=== PATIENT | female | born 1930 | race Caucasian/White ===

== ENCOUNTER 2017-02-18 12:21 | Emergency (ER) | payer MEDICARE, MEDICAID ==
[~2017-02-18] VITALS: Ht 154.9 cm; Wt 59.0 kg
[~2017-02-18 12:21] MED LIST: AC325T; ACET325T38 PO; ALPR.25T PO; ALPR.5T PO; ASP325T PO; ASPI-875 PO; BSC10SU; BSC10SU PR; CALC600T PO; CALC600T10; CALCIUM CARBONATE; CEFU500T5 PO; CHOL40002 PO; CHOL50003 PO; CTLP20T PO; CYAN100071 PO; CYAN25006 SL; CYAN500T44 PO; CYPR4TAB PO; DIGO125T91 PO; DOXE10CA PO; ERGO2000 PO; EST45C EXT; EST45C VG; FLT05NA16 NSEACH; FNT100TD TD; FNT25TD TD; FORTEO; GBPN100C PO; HYDROCODONE BIT/ACET; IBUP-15 PO; LOPE2CAP PO; LRT10T PO; LVT.05T PO; MAGN-77 PO; METO5TAB2 PO; METOPROLOL; MOM; MTP25TSR PO; MULT1TAB63 PO; MULTIVIT W/MINERALS PO; NF-ESOM40C PO; ONDA4TAB2 PO; OXC20TCR PO; OXYC10TA7 PO; OXYC30TA80 PO; OXYCODONE IMMEDIATE; PAXIL; PHEN100T26; PNT40TEC PO; POLY17PO23 PO; PRX20T; REGLAN; Rivaroxaban PO; TR1C15 TOP; TRIA60LO6 TOP; VESICARE; WARF2.5T56 PO; WRF5T PO; XANAX
[2017-02-18 13:33] LABS: BASOPHILS % (AUTO) 1 % (0-10); EOSINOPHILS % (AUTO) 0 % (0-10); LYMPHOCYTES # (AUTO) 0.7 X 10^3 (1.0-4.0); LYMPHOCYTES % (AUTO) 15 % (12-44); MEAN CORPUSCULAR HEMOGLOBIN 30 PG (25-34); MEAN CORPUSCULAR HGB CONC 33 G/DL (32-36); MEAN CORPUSCULAR VOLUME 92 FL (80-99); MEAN PLATELET VOLUME 10.1 FL (7.4-10.4); MONOCYTES # (AUTO) 0.3 X 10^3 (0.0-1.0); MONOCYTES % (AUTO) 6 % (0-12); NEUTROPHILS # (AUTO) 3.8 X 10^3 (1.8-7.8); NEUTROPHILS % (AUTO) 78 % (42-75); PLATELET COUNT 252 10^3/uL (130-400); RED BLOOD COUNT 4.36 10^6/uL (4.35-5.85); RED CELL DISTRIBUTION WIDTH 13.9 % (10.0-14.5); WHITE BLOOD COUNT 4.8 10^3/uL (4.3-11.0)
[2017-02-18 13:52] LABS: ALANINE AMINOTRANSFERASE 12 U/L (0-55); ANION GAP 12 MMOL/L (5-14); ASPARTATE AMINO TRANSFERASE 19 U/L (5-34); BILIRUBIN,TOTAL 0.8 MG/DL (0.1-1.0); BLOOD UREA NITROGEN 15 MG/DL (7-18); BUN/CREATININE RATIO 20; CALCIUM 9.8 MG/DL (8.5-10.1); CARBON DIOXIDE 26 MMOL/L (21-32); CHLORIDE 96 MMOL/L (98-107); CREATININE SERUM 0.76 MG/DL (0.60-1.30); GFR ESTIMATED > 60; GLUCOSE 101 MG/DL (70-105); POTASSIUM 4.2 MMOL/L (3.6-5.0); SODIUM 134 MMOL/L (135-145); TOTAL PROTEIN 8.3 GM/DL (6.4-8.2)
[2017-02-18] MEDS ORDERED: NS IV 1000 ML 1,000 ML IV SCH (14:00)
--- NOTE | 2017-02-18 14:04 | ED General ---
General Chief Complaint: General Problems/Pain Stated Complaint: BODY ACHES Nursing Triage Note: c/o bodyaches and malaise Nursing Sepsis Screen: No Definite Risk Source of Information: Patient Exam Limitations: No Limitations History of Present Illness Time Seen by Provider: 13:59 Initial Comments The patient is an 86-year-old white female who presents with her family with a complaint of body aches and general malaise. She reports that this is been present for 2-3 weeks. She saw a nurse practitioner at her provider's office approximately one week ago. Nothing specific was determined as to the cause of these symptoms. She is not aware of fever. Family reports that her appetite and fluid intake have been marginal at best. Timing/Duration: Other (2-3 weeks) Allergies and Home Medications Allergies Coded Allergies: penicillin G (Verified Allergy, Severe, THROAT SWELLED, COULDN'T BREATHE, 03/18/07) Sulfa (Sulfonamide Antibiotics) (Verified Allergy, Unknown, 04/16/07) hydrocodone bit (Verified Allergy, Unknown, 07/14/14) morphine (Verified Allergy, Unknown, 09/17/06) Home Medications Acetaminophen 325 Mg Tablet, 650 MG PO Q4H PRN for PAIN OR TEMP, (Reported) TAKE 2 (325MG) TABLETS NEEDED FOR PAIN OR TEMP Alprazolam 0.5 Mg Tablet, 0.5 MG PO Q6H PRN for ANXIETY, (Reported) NEEDED FOR ANXIETY Aspirin 81 Mg Tablet.dr, 81 MG PO DAILY, (Reported) Bisacodyl 10 Mg Supp, 10 MG IA DAILY PRN for CONSTIPATION, (Reported) NEEDED FOR CONSTIPATION Citalopram Hydrobromide 20 Mg Tablet, 20 MG PO DAILY, (Reported) Cyanocobalamin (Vitamin B-12) 1,000 Mcg Tablet.er, 2,000 MCG PO DAILY, (Reported ) GIVE WITH 500MCG TO EQUAL 2500MCG Cyanocobalamin (Vitamin B-12) 500 Mcg Tablet, 500 MCG PO DAILY, (Reported) GIVE WITH 2 (1000MCG) TO EQUAL 2500MCG Digoxin 0.125 Mg Tab, 0.125 MG PO DAILY, (Reported) Doxepin Hcl 10 Mg Capsule, 10 MG PO DAILY, (Reported) Ergocalciferol (Vitamin D2) 2,000 Unit Tablet, 2,000 UNIT PO DAILY, (Reported) Esomeprazole Mag Trihydrate 40 Mg Capsule.dr, 40 MG PO DAILY, (Reported) Estrogens Conjugated 45 Gm Cr, 1 GM VG HS ON SUNDAY, (Reported) 1 APPLICATORFUL Estrogens Conjugated 45 Gm Cr, 1 GM EXT HS WEEKLY PRN for VAGINITIS, (Reported) 1 APPLICATORFUL TO EXTERAL LABIA NEEDED FOR VAGINITIS Fentanyl 1 Ea Patch, 50 MCG TD Q72H, (Reported) ROTATE PATCH EVERY 14 DAYS Levothyroxine Sodium 50 Mcg Tablet, 50 MCG PO DAILY, (Reported) Loperamide Hcl 2 Mg Capsule, 2 MG PO Q2H PRN for LOOSE STOOL, (Reported) 1 CAP AFTER EACH LOOSE STOOL. NOT TO EXCEED 4 CAPS/24 HRS. Magnesium Hydroxide 80 Mg/Ml Oral.susp, 30 ML PO DAILY PRN for CONSTIPATION, ( Reported) NEEDED FOR CONSTIPATION MAY GIVE IF NO BOWEL MOVEMENT X 3 DAYS Ondansetron Hcl 4 Mg Tablet, 4 MG PO Q6H PRN for NAUSEA, (Reported) NEEDED FOR NAUSEA Oxycodone Hcl 10 Mg Tablet, 10 MG PO Q4H PRN for PAIN SCALE OF 1-4, (Reported) NEEDED FOR PAIN SCALE 1-4 Oxycodone Hcl 10 Mg Tablet, 20 MG PO Q4H PRN for PAIN SCALE 5-10, (Reported) TAKE 2 (10MG) TABLET NEEDED FOR PAIN SCALE 5-10 Polyethylene Glycol 17 Gm Pack, 17 GM PO DAILY PRN for CONSTIPATION, (Reported) NEEDED FOR CONSTIPATION Triamcinolone Acet 15 Gm Cr, 0 TOP DAILY PRN for SEBORRHEIC DERMATITIS, ( Reported) APPLY SPRARINGLY TO AFFECTED AREA(S) NEEDED FOR SEBORRHEIC DERMATITIS [Multivit W/Minerals] , 1 TAB PO DAILY, (Reported) [Rivaroxaban] 20 MG TABLET, 20 MG PO DAILY@1700, #30 Prescribed by: BINDU BAJWA on 07/20/14 0801 Constitutional: see HPI EENTM: no symptoms reported Respiratory: no symptoms reported Cardiovascular: no symptoms reported Gastrointestinal: loss of appetite Genitourinary: no symptoms reported Musculoskeletal: muscle pain, muscle weakness Skin: no symptoms reported Psychiatric/Neurological: No Symptoms Reported Hematologic/Lymphatic: No Symptoms Reported Immunological/Allergic: no symptoms reported Past Aojapja-Jdbudl-Nacabp Hx Patient Social History Alcohol Use: Denies Use Recreational Drug Use: No Smoking Status: Never a Smoker Recent Foreign Travel: No Contact w/Someone Who Travel: No Recent Infectious Disease Expo: No Recent Hopitalizations: Yes (UMBILICAL HERMIA, TONSILS, BACK SURGERY, RECICILE , TIE UP BLADDER) Immunizations Up To Date Tetanus Booster (TDap): Unknown PED Vaccines UTD: No Date of Pneumonia Vaccine: May 22, 2011 Date of Influenza Vaccine: May 20, 2014 Seasonal Allergies Seasonal Allergies: No Surgeries HX Surgeries: Yes (REPAIR LEFT HIP WITH FARTUN, RIGHT 4TH TOE REMOVED) Surgeries: Orthopedic, Tonsillectomy Respiratory Hx Respiratory Disorders: Yes Respiratory Disorders: Pneumonia Cardiovascular Hx Cardiac Disorders: Yes (A-FIB) Cardiac Disorders: Atrial Fibrillation, Deep Vein Thrombosis Neurological Hx Neurological Disorders: Yes Reproductive System Hx Reproductive Disorders: No Sexually Transmitted Disease: No DATA ANALYTICS ANALYST History: Hysterectomy Genitourinary Hx Genitourinary Disorders: Yes Genitourinary Disorders: UTI-Chronic Gastrointestinal Hx Gastrointestinal Disorders: No Gastrointestinal Disorders: Gastroesophageal Reflux, Chronic Constipation Musculoskeletal Hx Musculoskeletal Disorders: Yes Musculoskeletal Disorders: Osteoporosis, Arthritis, Fractures Endocrine Hx Endocrine Disorders: No HEENT HX ENT Disorders: Yes HEENT Disorders: Cataract Loss of Vision: Denies Hearing Impairment: Hard of Hearing Cancer Hx Cancer: No Psychosocial Hx Psychiatric Problems: No Behavioral Health Disorders: Depression Integumentary HX Skin/Integumentary Disorder: No Blood Transfusions Hx Blood Disorders: Yes (hx of "blood clots") Adverse Reaction to a Blood Tr: No (Has had several blood transfusions) Family Medical History Significant Family History: No Pertinent Family Hx Family Medial History: FH: cancer 19 FATHER Peritonitis 19 MOTHER Physical Exam Vital Signs Vital Sign - Last 12Hours 02/18/17 13:03 Temp 97.5 Pulse 90 Resp 16 B/P (MAP) 105/80 Pulse Ox 96 O2 Delivery Room Air Capillary Refill : Less Than 3 Seconds General Appearance: Other Eyes: Bilateral Eye Normal Inspection HEENT: Other (tongue is dry and leathery in appearance) Neck: Normal Inspection Respiratory: Chest Non Tender, Lungs Clear, Normal Breath Sounds, No Accessory Muscle Use, No Respiratory Distress Cardiovascular: Regular Rate, Rhythm, No Edema, No Gallop, No JVD, No Murmur, Normal Peripheral Pulses Gastrointestinal: Normal Bowel Sounds, No Organomegaly, No Pulsatile Mass, Non Tender, Soft Back: Normal Inspection, No CVA Tenderness, No Vertebral Tenderness Extremity: Normal Capillary Refill, Normal Inspection, Normal Range of Motion, Non Tender, No Calf Tenderness, No Pedal Edema Neurologic/Psychiatric: Alert, Oriented x3, No Motor/Sensory Deficits, Normal Mood/Affect Skin: Normal Color, Warm/Dry Lymphatic: No Adenopathy Progress/Results/Core Measures Results/Orders Lab Results Laboratory Tests Test 02/18/17 13:25 02/18/17 15:25 Range/Units White Blood Count 4.8 4.3-11.0 10^3/uL Red Blood Count 4.36 4.35-5.85 10^6/uL Hemoglobin 13.1 11.5-16.0 G/DL Hematocrit 40 35-52 % Mean Corpuscular Volume 92 80-99 FL Mean Corpuscular Hemoglobin 30 25-34 PG Mean Corpuscular Hemoglobin Concent 33 32-36 G/DL Red Cell Distribution Width 13.9 10.0-14.5 % Platelet Count 252 130-400 10^3/uL Mean Platelet Volume 10.1 7.4-10.4 FL Neutrophils (%) (Auto) 78 H 42-75 % Lymphocytes (%) (Auto) 15 12-44 % Monocytes (%) (Auto) 6 0-12 % Eosinophils (%) (Auto) 0 0-10 % Basophils (%) (Auto) 1 0-10 % Neutrophils # (Auto) 3.8 1.8-7.8 X 10^3 Lymphocytes # (Auto) 0.7 L 1.0-4.0 X 10^3 Monocytes # (Auto) 0.3 0.0-1.0 X 10^3 Eosinophils # (Auto) 0.0 0.0-0.3 10^3/uL Basophils # (Auto) 0.0 0.0-0.1 10^3/uL Sodium Level 134 L 135-145 MMOL/L Potassium Level 4.2 3.6-5.0 MMOL/L Chloride Level 96 L 98-107 MMOL/L Carbon Dioxide Level 26 21-32 MMOL/L Anion Gap 12 5-14 MMOL/L Blood Urea Nitrogen 15 7-18 MG/DL Creatinine 0.76 0.60-1.30 MG/DL Estimat Glomerular Filtration Rate > 60 BUN/Creatinine Ratio 20 Glucose Level 101 70-105 MG/DL Calcium Level 9.8 8.5-10.1 MG/DL Total Bilirubin 0.8 0.1-1.0 MG/DL Aspartate Amino Transf (AST/SGOT) 19 5-34 U/L Alanine Aminotransferase (ALT/SGPT) 12 0-55 U/L Alkaline Phosphatase 48 40-136 U/L Total Protein 8.3 H 6.4-8.2 GM/DL Albumin 4.0 3.2-4.5 GM/DL Urine Color YELLOW Urine Clarity CLEAR Urine pH 8 5-9 Urine Specific [place] 1.010 L 1.016-1.022 Urine Protein NEGATIVE NEGATIVE Urine Glucose (UA) NEGATIVE NEGATIVE Urine Ketones 3+ H NEGATIVE Urine Nitrite NEGATIVE NEGATIVE Urine Bilirubin NEGATIVE NEGATIVE Urine Urobilinogen NORMAL NORMAL MG/DL Urine Leukocyte Esterase NEGATIVE NEGATIVE Urine RBC (Auto) 2+ H NEGATIVE Urine RBC 5-10 H /HPF Urine WBC RARE /HPF Urine Squamous Epithelial Cells RARE /HPF Urine Crystals NONE /LPF Urine Bacteria FEW H /HPF Urine Casts NONE /LPF Urine Mucus NEGATIVE /LPF Urine Culture Indicated NO My Orders Orders - OSCAR SAUL MD Ua Culture If Indicated (02/18/17 12:58) Cbc With Automated Diff (02/18/17 13:03) Comprehensive Metabolic Panel (02/18/17 13:03) Ns Iv 1000 Ml (Sodium Chloride 0.9%) (02/18/17 14:00) Chest 1 View, Ap/Pa Only (02/18/17 16:10) Alprazolam Tablet (Xanax Tablet) (02/18/17 16:30) Medications Given in ED Current Medications Medications Dose Ordered Sig/Josef Route Start Time Stop Time Status Last Admin Dose Admin Alprazolam 0.25 mg ONCE ONCE PO 02/18/17 16:30 02/18/17 16:31 DC 02/18/17 16:29 0.25 MG Vital Signs/I&O Vital Sign - Last 12Hours 02/18/17 13:03 Temp 97.5 Pulse 90 Resp 16 B/P (MAP) 105/80 Pulse Ox 96 O2 Delivery Room Air Blood Pressure Mean: 88 Departure Communication Progress Notes After a liter of fluid the patient was still unable to urinate. A straight catheter was performed. The UA showed a few red cells but was otherwise negative she then began to complain of feeling short of breath. Chest x-ray showed chronic Pulmonary fibrosis. SaO2 was 95 percent. She again states that she continues to feel just awful. Impression Impression: Primary Impression: General medical exam Disposition: HOME, SELF-CARE Condition: Stable/Unchanged Departure-Patient Inst. Decision time for Depature: 16:46 Referrals: LORI LIN MD (PCP/Family) Primary Care Physician Add. Discharge Instructions: All discharge instructions reviewed with patient and/or family. Voiced understanding. Discussed with your provider the possibility of an appetite stimulant. OSCAR SAUL MD Feb 18, 2017 14:04
[2017-02-18 15:57] LABS: BILIRUBIN,URINE NEGATIVE (NEGATIVE); KETONES,URINE 3+ (NEGATIVE); LEUKOCYTE ESTERASE ,URINE NEGATIVE (NEGATIVE); NITRITE,URINE NEGATIVE (NEGATIVE); PH,URINE 8 (5-9); PROTEIN,URINE NEGATIVE (NEGATIVE); UROBILINOGEN,URINE NORMAL (NORMAL)
[2017-02-18 16:04] LABS: SQUAMOUS EPITHELIAL CELL,UR RARE /HPF; WBC,URINE RARE /HPF
--- NOTE | 2017-02-18 16:26 | Diagnostic Imaging Report ---
INDICATION: Fall. Right-sided pain. COMPARISON: 01/26/2016. FINDINGS: Portable chest shows the lungs to be well aerated. Chronic interstitial lung disease is present. Heart is mildly enlarged. No consolidated infiltrate. No pneumothorax or pleural effusions. No displaced rib fractures are demonstrated. Marked degenerative changes noted of the left shoulder. IMPRESSION: 1. Chronic interstitial lung disease with cardiomegaly. No acute changes demonstrated. Dictated by: Dictated on workstation # [id number]
[2017-02-18] MEDS ORDERED: ALPRAZolam 0.25 MG (XANAX) TAB PO ONE (16:30)
[2017-02-18 17:05] VITALS: BP 141/80
--- OUTSIDE RECORDS SUMMARY | 2017-02-21 13:21 | XMS REPORT | Continuity of Care Document ---
Author Author [facility] Organization [facility] Address Unknown Phone Unavailable Care Team Providers Care Military Pay Technician Name Role Phone Unverified, Unverified PCP Unavailable Source Comments Some departments are not documenting in the electronic medical record. If you do not see the information that you expected, contact Release of Information in the Health Information Management department at [phone] for further assistance in locating additional records.[facility] Active Allergies and Adverse Reactions Allergen Noted Date Severity Reactions Comments Morphine 06/11/2008 NAUSEA AND VOMITING Penicillins 01/02/2005 High Allergy recorded in SMS: PENNICILLIN~Reactions: ANAPHYLAXIS Sulfa (Sulfonamide 06/11/2008 Antibiotics) Current Medications Prescription Sig. Disp. Refills Start End Date Status Date senna/docusate Take 1 Tab by mouth Twice 60 1 06/11/20 Active (SENOKOT-S) 8.6/50 mg Daily. While taking pain 08 tablet medications oxycodone (ROXICODONE) 5 Take 1-2 Tabs by mouth 60 0 06/11/20 Active mg tablet Every 3 Hours as needed 08 for Pain. 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 Social History Tobacco Use Types Packs/Day Years Used Date Never Smoker Alcohol Use Drinks/Week oz/Week Comments No Last Filed Vital Signs Vital Sign Reading Time Taken Blood Pressure 129/73 06/11/2008 12:00 PM CDT Pulse 83 06/11/2008 12:00 PM CDT Temperature 37.3 C (99.1 F) 06/11/2008 12:00 PM CDT Respiratory Rate - - Height - - Weight - - Body Mass Index - - Oxygen Saturation 96% 06/11/2008 12:00 PM CDT Plan of Care Health Maintenance Due Date Last Done Comments Physical (Comprehensive) 1936 Exam Pertussis Vaccine 1940 Tetanus Vaccine 1946 Shingles Vaccine 1989 Osteoporosis Screening 1994 Prevnar/Pneumovax (#1) 1994 Influenza Vaccine 04/20/2017 Results from Last 3 Months Not on file
== END 2017-02-18 17:05 | disposition home or self-care (01) ==
LOC: EDUNIT# 12:21 → ER 12:24
DX: R52 Pain, unspecified (principal); R53.81 Other malaise; F32.9 Major depressive disorder, single episode, unspecified; M81.0 Age-related osteoporosis without current pathological fracture; K21.9 Gastro-esophageal reflux disease without esophagitis; K59.09 Other constipation; I48.91 Unspecified atrial fibrillation; I82.90 Acute embolism and thrombosis of unspecified vein; Z79.82 Long term (current) use of aspirin; Z89.421 Acquired absence of other right toe(s); Z90.89 Acquired absence of other organs; Z90.710 Acquired absence of both cervix and uterus; Z79.01 Long term (current) use of anticoagulants
CPT/HCPCS: 36415; 71010; 80053; 81000; 85025

== ENCOUNTER → 2017-04-27 | Outpatient (CLI) | payer MEDICARE, MEDICAID ==
[~2017-04-27] MED LIST changes: +ACET325T49 PO; +ALPR0.254 PO; +ASPI-983 PO; +BISA10SU6 RC; +CALC500T34 PO; +CHOL10003 PO; +CITA20TA7 PO; +CLIN150C17 PO; +CYAN10006 PO; +CYAN500T2 PO; +DIGO125T PO; +DOCU100C37 PO; +DOXE10CA29 PO; +ESOM20CA37 PO; +ESTR42.52 VG; +FENT1PAT11 TD; +FENT1PAT57 TD; +FENT1PAT8 TD; +LACT-35 PO; +LACT1CAP39 PO; +LEVO50TA6 PO; +LOPE-134 PO; +LOPE2TAB32 PO; +LORA10TA7 PO; +MAG30ORA2 PO; +MAGN400O7 PO; +MULT1TAB69 PO; +NALO25TA PO; +ONDA4TAB10 PO; +OXYC-529 PO; +OXYC15TA79 PO; +Oxycodone Hcl PO; +POLY255P PO; +RIVA15TA PO; +RIVA20TA PO; +[UNRECOGNIZED DRUG - CODE] PO
--- NOTE | 2017-04-27 15:29 | Diagnostic Imaging Report ---
INDICATION: Fall. COMPARISON: 05/26/2016. FINDINGS: Bilateral gamma nail and compression screws are in good position within the hips bilaterally. No evidence of acute fractures. There is an old fracture noted of the right pubic ramus. SI joints are symmetrical with degenerative changes more severe on the right. IMPRESSION: No acute fractures. Old fracture of the right pubic ramus. Report was called and faxed to Xi at office of BART Molina, @ 3:26 PM/norma. Dictated by: Dictated on workstation # [id number]
--- NOTE | 2017-04-27 15:35 | Diagnostic Imaging Report ---
INDICATION: Neck and back pain. COMPARISON: None available. TECHNIQUE: Four views of cervical spine. FINDINGS: Evaluation of the cervical spine is limited due to patient's suboptimal ability to position secondary to severe thoracic kyphosis and extensive cervical lordosis. Allowing for this, visualized aspects of the cervical spine have no spondylolisthesis. No discrete fracture is identified. No prevertebral soft tissue swelling. IMPRESSION: Limited examination of the cervical spine demonstrates no acute abnormality. If there is high clinical suspicion for cervical spine fracture, CT is advised. Report was called and faxed to Xi at office of BART Molina, @ 3:34 PM/norma. Dictated by: Dictated on workstation # [id number]
--- NOTE | 2017-04-27 15:36 | Diagnostic Imaging Report ---
Indication: Fall back pain. Comparison previous CT scan lumbar spine on 02/03/2016. Findings: Patient is severely osteoporotic. Patient has had multiple kyphoplasty. L5 vertebral bodies is good preservation of body height. There is chronic compression fracture of L3 and chronic planar compression fracture of L1. No acute changes are demonstrated. SI joints are symmetrical. IMPRESSION: Severe osteoporosis with no acute compression fractures or malalignment noted. Report was called and faxed to Xi at office of BART Molina, @ 3:36 PM/norma. Dictated by: Dictated on workstation # [id number]
--- NOTE | 2017-04-27 15:36 | Diagnostic Imaging Report ---
INDICATION: Fall. Shoulder pain. COMPARISON: 10/21/2015. FINDINGS: There is a deformity of the humeral shaft with an old fracture dislocation of the humeral head with subcapital fracture. This does not appear to have changed significantly in overall position when compared with previous exam. No definite acute fractures are demonstrated. AC joint is in good alignment. IMPRESSION: Old deformed fracture of the humeral neck with rotation of the humeral head. This appears to be healed with no acute findings. Report was called and faxed to Xi at office of BART Molina, @ 3:35 PM/norma. Dictated by: Dictated on workstation # [id number]
== END ==
LOC: RAD 13:31
PROVIDERS: ATTEND Nurse Practitioner Family
DX: M81.0 Age-related osteoporosis without current pathological fracture (principal); M47.818 Spondylosis without myelopathy or radiculopathy, sacral and sacrococcygeal region; M25.512 Pain in left shoulder; M25.551 Pain in right hip; M25.552 Pain in left hip; M54.5 Low back pain
CPT/HCPCS: 72040; 72100; 73030; 73521

== ENCOUNTER 2017-05-02 11:37 | Observation (INO) | payer MEDICARE, MEDICAID ==
[~2017-05-02 11:37] MED LIST changes: -ACET325T49 PO; -ALPR0.254 PO; -ASPI-983 PO; -BISA10SU6 RC; -CALC500T34 PO; -CHOL10003 PO; -CITA20TA7 PO; -CLIN150C17 PO; -CYAN10006 PO; -CYAN500T2 PO; -DIGO125T PO; -DOCU100C37 PO; -DOXE10CA29 PO; -ESOM20CA37 PO; -ESTR42.52 VG; -FENT1PAT11 TD; -FENT1PAT57 TD; -FENT1PAT8 TD; -LACT-35 PO; -LACT1CAP39 PO; -LEVO50TA6 PO; -LOPE-134 PO; -LOPE2TAB32 PO; -LORA10TA7 PO; -MAG30ORA2 PO; -MAGN400O7 PO; -MULT1TAB69 PO; -NALO25TA PO; -ONDA4TAB10 PO; -OXYC-529 PO; -OXYC15TA79 PO; -Oxycodone Hcl PO; -POLY255P PO; -RIVA15TA PO; -RIVA20TA PO; -[UNRECOGNIZED DRUG - CODE] PO
[2017-05-02] MEDS ORDERED: ACETAMINOPHEN 500 MG TAB (TYLENOL) PO PRN (12:30)
[2017-05-02] MEDS: NS IV 1000 ML 1,000 ML IV SCH ×3 (13:18→23:17)
[2017-05-02 13:33] LABS: MEAN PLATELET VOLUME 10.7 FL (7.4-10.4); RED BLOOD COUNT 4.11 10^6/uL (4.35-5.85); RED CELL DISTRIBUTION WIDTH 14.3 % (10.0-14.5); WHITE BLOOD COUNT 5.7 10^3/uL (4.3-11.0)
[2017-05-02] MEDS ORDERED: ONDANSETRON 4 MG/2 ML (SDV) Z0FRAN IV PRN (13:45)
[2017-05-02] MEDS ORDERED: CATHETER FLUSH 10 ML SYR IV PRN (13:45)
[2017-05-02 13:56] LABS: ALANINE AMINOTRANSFERASE 13 U/L (0-55); ALBUMIN 3.4 GM/DL (3.2-4.5); ANION GAP 7 MMOL/L (5-14); ASPARTATE AMINO TRANSFERASE 22 U/L (5-34); BILIRUBIN,TOTAL 0.7 MG/DL (0.1-1.0); BLOOD UREA NITROGEN 18 MG/DL (7-18); BUN/CREATININE RATIO 26; CALCIUM 9.1 MG/DL (8.5-10.1); CARBON DIOXIDE 27 MMOL/L (21-32); CHLORIDE 101 MMOL/L (98-107); CREATININE SERUM 0.69 MG/DL (0.60-1.30); GFR ESTIMATED > 60; GLUCOSE 104 MG/DL (70-105); POTASSIUM 4.4 MMOL/L (3.6-5.0); SODIUM 135 MMOL/L (135-145)
[2017-05-02] MEDS ORDERED: NS 100 ML (IVPB) BAG IV ONE (14:15)
[2017-05-02] MEDS ORDERED: IOHEXOL 350 MG/ML 100 ML (OMNIPAQUE 350) VIAL IV ONE (14:15)
--- NOTE | 2017-05-02 15:07 | Diagnostic Imaging Report ---
PROCEDURE: CT pelvis without contrast. TECHNIQUE: Multiple contiguous axial images were obtained through the pelvis without the use of intravenous contrast. Sagittal and coronal reformations were performed. INDICATION: Pelvic pain, persistent after falling down 6 days ago. FINDINGS: There is evidence of osteopenia. There are beam hardening artifacts from internal fixation through the femoral neck on both sides related to old femoral neck and intertrochanteric fractures with deformity, particularly prominent on the left side. 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 There is a minimally displaced mildly impacted sacral fracture involving the S3 level, best appreciated on the sagittal reconstructions. There is diverticulosis. No evidence of diverticulitis is seen. The soft tissues in the pelvis otherwise appear grossly unremarkable. IMPRESSION: There is a minimally displaced fracture at the S3 level in the sacrum with mild impaction. Dr. Lemus was informed of the findings via text message at the time of dictation. Dictated by: Dictated on workstation # [id number]
[2017-05-02 16:07] VITALS: BP 142/71
[2017-05-02] MEDS: fentaNYL INJECTION 100 MCG/2 ML AMP IVP PRN ×2 (17:09→19:49)
[2017-05-02] MEDS ORDERED: CITA20TA7 PO (19:44)
[2017-05-02] MEDS ORDERED: LORA10TA7 PO (19:44)
[2017-05-02] MEDS ORDERED: BISA10SU6 RC (19:44)
[2017-05-02] MEDS ORDERED: LACT-35 PO (19:44)
[2017-05-02] MEDS ORDERED: POLY255P PO (19:44)
[2017-05-02] MEDS ORDERED: MULT1TAB69 PO (19:44)
[2017-05-02] MEDS ORDERED: CYAN10006 PO (19:44)
[2017-05-02] MEDS ORDERED: ACET325T49 PO (19:44)
[2017-05-02] MEDS ORDERED: MAGN400O7 PO (19:44)
[2017-05-02] MEDS ORDERED: OXYC15TA79 PO (19:44)
[2017-05-02] MEDS ORDERED: CLIN150C17 PO (19:44)
[2017-05-02] MEDS ORDERED: LOPE-134 PO (19:44)
[2017-05-02] MEDS ORDERED: LOPE2TAB32 PO (19:44)
[2017-05-02] MEDS ORDERED: DIGO125T PO (19:44)
[2017-05-02] MEDS ORDERED: FENT1PAT11 TD (19:44)
[2017-05-02] MEDS ORDERED: NALO25TA PO (19:44)
[2017-05-02] MEDS ORDERED: MAG30ORA2 PO (19:44)
[2017-05-02] MEDS ORDERED: ALPR0.254 PO (19:44)
[2017-05-02] MEDS ORDERED: ASPI-983 PO (19:44)
[2017-05-02] MEDS ORDERED: DOXE10CA29 PO (19:44)
[2017-05-02] MEDS ORDERED: DOCU100C37 PO (19:44)
[2017-05-02] MEDS ORDERED: CYAN500T2 PO (19:44)
[2017-05-02] MEDS ORDERED: CHOL10003 PO (19:44)
[2017-05-02] MEDS ORDERED: CALC500T34 PO (19:44)
[2017-05-02] MEDS ORDERED: [UNRECOGNIZED DRUG - CODE] PO (19:44)
[2017-05-02] MEDS ORDERED: RIVA20TA PO (19:44)
[2017-05-02] MEDS ORDERED: LEVO50TA6 PO (19:44)
[2017-05-02] MEDS ORDERED: ESTR42.52 VG (19:44)
[2017-05-02] MEDS ORDERED: ESOM20CA37 PO (19:44)
[2017-05-02] MEDS ORDERED: LACT1CAP39 PO (19:44)
[2017-05-02] MEDS ORDERED: ONDA4TAB10 PO (19:44)
[2017-05-02 20:13] VITALS: BP 142/73
[2017-05-02] MEDS: MIRTAZAPINE 15 MG (REMERON) TAB PO SCH (21:40)
[2017-05-03] VITALS: BP 145/67
[2017-05-03 04:39] VITALS: BP 123/75
[2017-05-03] MEDS: fentaNYL INJECTION 100 MCG/2 ML AMP IVP PRN ×5 (05:54→20:58)
[2017-05-03 08:22] VITALS: BP 152/71
--- NOTE | 2017-05-03 08:49 | Progress Note (SOAP) ---
Subjective Date Seen by Provider: May 03, 2017 Time Seen by Provider: 08:45 Subjective/Events-last exam PT REPORTS THAT SHE IS STILL IN QUITE A BIT OF PAIN. SHE REPORTS THAT SHE IS HAVING PAIN WITH ANY MOVEMENT IN OR OUT OF BED. Review of Systems General: Fatigue, Appetite (DECREASED DUE TO PAIN) HEENT: No Head Aches Cardiovascular: No: Chest Pain Gastrointestinal: No: Nausea, Abdominal Pain Genitourinary: Frequency, No Incontinence, No Retention Musculoskeletal: back pain Neurological: Weakness, No: Confusion Objective Exam Vital Signs Date Time Temp Pulse Resp B/P (MAP) Pulse Ox O2 Delivery O2 Flow Rate FiO2 05/03/17 08:22 98.4 100 20 152/71 94 Room Air 05/03/17 04:39 97.7 78 16 123/75 91 Room Air 05/03/17 00:00 96.8 86 18 145/67 94 Nasal Cannula 0.50 05/02/17 20:30 98 Nasal Cannula 0.50 05/02/17 20:13 96.9 95 19 142/73 95 05/02/17 16:07 96.9 94 18 142/71 95 Capillary Refill : General Appearance: No Apparent Distress, WD/WN HEENT: PERRL/EOMI, Pharynx Normal Neck: Full Range of Motion, Supple Respiratory: Chest Non Tender, Lungs Clear, Normal Breath Sounds, No Accessory Muscle Use Cardiovascular: Regular Rate, Rhythm Gastrointestinal: normal bowel sounds, non tender, soft Extremity: No Pedal Edema Neurologic/Psychiatric: Alert, Oriented x3 Skin: Warm/Dry Lymphatic: No Adenopathy Results Lab Laboratory Tests 05/02/17 13:25: White Blood Count 5.7, Red Blood Count 4.11L, Hemoglobin 12.1, Hematocrit 38, Mean Corpuscular Volume 92, Mean Corpuscular Hemoglobin 29, Mean Corpuscular Hemoglobin Concent 32, Red Cell Distribution Width 14.3, Platelet Count 246, Mean Platelet Volume 10.7H, Sodium Level 135, Potassium Level 4.4, Chloride Level 101, Carbon Dioxide Level 27, Anion Gap 7, Blood Urea Nitrogen 18, Creatinine 0.69, Estimat Glomerular Filtration Rate > 60, BUN/Creatinine Ratio 26, Glucose Level 104, Calcium Level 9.1, Total Bilirubin 0.7, Aspartate Amino Transf (AST/SGOT) 22, Alanine Aminotransferase (ALT/SGPT) 13, Alkaline Phosphatase 36L, Total Protein 7.0, Albumin 3.4 Assessment/Plan Assessment/Plan Assess & Plan/Chief Complaint SACRAL FRACTURE UNCONTROLLED PAIN DECREASED APPETITE CHRONIC PAIN SYNDROME DEPRESSION ANXIETY ATRIAL FIBRILLATION CHRONIC ANTICOAGULATION SACRAL FRACTURE WITH UNCONTROLLED PAIN - IV FENTANYL AND CONTINUE WITH FENTANYL PATCH, IF PAIN IS NOT IMPROVED, WILL ADD AN EXTRA 25MCG PATCH TO HER 100MCG PATCH, AND CONTINUE TO INCREASE THE PATCH ABLE TO ALLOW FOR BETTER PAIN CONTROL HER FRACTURE HEALS. WILL NEED TO LOOK INTO PROLIA OR FORTEO FOR IMPROVEMENT OF HER OSTEOPOROSIS AND HOPEFULLY DECREASE IN HER FURTHER FRACTURE RISK. DECREASED APPETITE - SUPPLEMENT WITH FLUIDS, ENCOURAGE PO INTAKE. CHRONIC PAIN SYNDROME - MONITOR PAIN DEPRESSION AND ANXIETY - RESTART CELEXA AND ANXIOLYTICS. ATRIAL FIBRILLATION WITH CHRONIC ANTICOAGULATION - RESTART XARELTO AND DIGOXIN. DVT PROPHYLAXIS WITH XARELTO - WILL NOT USE SCD'S DUE TO PAIN WITH MOVEMENT OF LEGS GI PROPHYLAXIS WITH PROTONIX OR PEPCID Clinical Quality Measures DVT/VTE Risk/Contraindication: Risk Factor Score Per Nursin RFS Level Per Nursing on Admit: 3=High LORI LIN MD May 03, 2017 08:49
[2017-05-03] MEDS ORDERED: fentaNYL PATCH 100 MCG (DURAGESIC) TD SCH (09:15)
[2017-05-03] MEDS ORDERED: ALPRAZolam 0.25 MG (XANAX) TAB PO PRN (09:15)
[2017-05-03] MEDS ORDERED: DOCUSATE SODIUM 100 MG (COLACE) CAP PO PRN (09:15)
[2017-05-03] MEDS ORDERED: ANTACID SUSP 30 ML UDC (MYLANTA) PO PRN (09:15)
[2017-05-03] MEDS ORDERED: ACETAMINOPHEN 325 MG TABLET/CAPLET (TYLENOL) PO PRN (09:15)
[2017-05-03] MEDS ORDERED: LOPERAMIDE 2 MG (IMODIUM) CAP PO PRN (09:15)
[2017-05-03] MEDS ORDERED: BISACODYL 10 MG SUPP (DULCOLAX) RC PRN (09:15)
[2017-05-03] MEDS: DIGOXIN 0.125 MG (LANOXIN) TAB PO SCH (09:29)
[2017-05-03] MEDS: LEVOTHYROXINE 50 MCG (LEVOTHROID) TAB PO SCH (09:37)
[2017-05-03] MEDS: MULTIVIT W/MINERALS TAB (THERAGRAN M) PO SCH (11:30)
[2017-05-03] MEDS: CYANOCOBALAMIN 500 MCG TAB (VITAMIN B-12) PO SCH (11:30)
[2017-05-03] MEDS: MILK OF MAGNESIA 400 MG/5 ML 30 ML UDC PO PRN (11:30)
[2017-05-03] MEDS: NS IV 1000 ML 1,000 ML IV SCH ×2 (11:30→21:58)
[2017-05-03] MEDS: DOCUSATE SODIUM 100 MG (COLACE) CAP PO SCH (11:30)
[2017-05-03] MEDS: VITAMIN D3 1,000 UNITS (CHOLECALCIFEROL) TABLET PO SCH (11:30)
[2017-05-03] MEDS: LORATADINE (CLARITIN) 10 MG TAB PO SCH (11:30)
[2017-05-03] MEDS: ASPIRIN E.C. 81 MG (ECOTRIN) TAB PO SCH (11:31)
[2017-05-03 12:00] VITALS: BP 119/63
[2017-05-03] MEDS ORDERED: NON-FORMULARY MEDICATION 1 EA EA (Naloxegol Oxalate (Movantik) 25 MG) PO SCH (12:00)
[2017-05-03 16:23] VITALS: BP 126/71
[2017-05-03] MEDS ORDERED: DOXEPIN 10 MG (SINEquan) CAP PO SCH (18:00)
[2017-05-03] MEDS ORDERED: RIVAROXABAN 20 MG TABLET (XARELTO) PO SCH (18:00)
[2017-05-03 20:00] VITALS: BP 116/56
[2017-05-03] MEDS: LACTOBACILLUS Acidoph/Bulgar (LACTINEX/FLORANEX) TAB PO SCH (20:42)
[2017-05-03] MEDS: MIRTAZAPINE 15 MG (REMERON) TAB PO SCH (20:43)
[2017-05-03] MEDS ORDERED: LACTOSE REDUCED FOOD PO SCH (21:00)
[2017-05-04] VITALS: BP 138/74
[2017-05-04 04:00] VITALS: BP 133/77
[2017-05-04] MEDS: NS IV 1000 ML 1,000 ML IV SCH ×2 (06:44→08:35)
[2017-05-04] MEDS: fentaNYL INJECTION 100 MCG/2 ML AMP IVP PRN ×3 (06:44→13:36)
[2017-05-04] MEDS ORDERED: PANTOPRAZOLE 20 MG TABLET (PROTONIX) PO SCH (07:00)
[2017-05-04 08:00] VITALS: BP 120/73
[2017-05-04] MEDS ORDERED: fentaNYL PATCH 25 MCG (DURAGESIC) TD SCH (09:15)
[2017-05-04] MEDS: LEVOTHYROXINE 50 MCG (LEVOTHROID) TAB PO SCH (09:27)
[2017-05-04] MEDS: LACTOBACILLUS Acidoph/Bulgar (LACTINEX/FLORANEX) TAB PO SCH (09:27)
[2017-05-04] MEDS: DIGOXIN 0.125 MG (LANOXIN) TAB PO SCH (09:27)
[2017-05-04] MEDS ORDERED: BISACODYL 10 MG SUPP (DULCOLAX) PR ONE (10:15)
[2017-05-04] MEDS ORDERED: Oxycodone Hcl PO (10:19)
[2017-05-04] MEDS ORDERED: FENT1PAT8 TD (10:19)
[2017-05-04] MEDS: MILK OF MAGNESIA 400 MG/5 ML 30 ML UDC PO PRN (10:21)
--- NOTE | 2017-05-04 10:23 | Discharge Inst-Skilled Nursing ---
Discharge Inst-Skilled NF Patient Instructions Patient Problems: see list below Goal: controlled pain, improved function Consult/Follow Up/Orders Follow Up Appt.: 1 week with [facility] Skilled NF Admit to: [facility] Certification (SNF) I certify that SNF services are required to be given on an inpatient basis because of the above named patient's need for nursing home care on a continuing basis for the conditions(s) for which he/she was receiving inpatient hospital services prior to his/her transfer to the SNF. [facility] Facility Order: Nursing Services (straight cath prn symptoms of urinary retention), Physical Therapy-Evaluate & Treat (range of motion exercises, as patient is able to tolerate more therapy, please increase activity as able, she has sacral fracture), Other Discharge Diet: Regular Diet Daily Activity as Tolerated: No (bed rest with bathroom priv.) New & Resume Previous Orders Lori Lemus May 04, 2017 10:20 Diagnosis/Problems (1) Sacral insufficiency fracture Status: Acute Qualifiers: Qualified Codes: M84.48XA - Pathological fracture, other site, initial encounter for fracture (2) Chronic anticoagulation Status: Chronic (3) Chronic pain syndrome Status: Chronic (4) Depression Status: Chronic Qualifiers: (5) Anxiety Status: Chronic (6) Atrial fibrillation Status: Chronic Qualifiers: Qualified Codes: I48.2 - Chronic atrial fibrillation (7) Uncontrolled pain Status: Acute (8) Osteoporosis with current pathological fracture Status: Acute Qualifiers: Qualified Codes: M80.00XA - Age-related osteoporosis with current pathological fracture, unspecified site, initial encounter for fracture (9) 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 Medication List: Active Scripts Active [Oxycodone Hcl] 5 MG Tab 15-30 Mg PO Q4H PRN use 15mg if mild to moderate pain, use 30mg if moderate to severe pain PRN for sacral fx pain, call if pain is not controlled with medications Fentanyl Patch 25 MCG (Fentanyl) 1 Each Patch.td72 25 Mcg TD Q72H 30 Days use in addition to the 100mcg patch - change every 72 hours Reported Anti-Diarrheal (Loperamide HCl) 2 Mg Tablet 2-4 Mg PO Q6H PRN TAKES 1-2 OF A (2 MG) TABLET Polyethylene Glycol 3350 255 Gm Powder 17 Gm PO Q48H PRN Mylanta Suspension (Al Hydrox/Mg Hydrox/Simethicone) 30 Ml Oral.susp 30 Ml PO Q4H PRN Docusate Sodium 100 Mg Capsule 100 Mg PO DAILY PRN Ondansetron HCl 4 Mg Tablet 4 Mg PO Q6H PRN Alprazolam 0.25 Mg Tablet 0.25 Mg PO TID PRN Clindamycin HCl 150 Mg Capsule 600 Mg PO UD TAKES 4 (150 MG) CAPSULES 1 HOUR PRIOR TO DENTAL APPOINTMENTS Estrace Cream (Estradiol) 42.5 Gm Cream.appl 1 Gm VG WE ON SUNDAY Doxepin HCl 10 Mg Capsule 10 Mg PO 1800 Xarelto (Rivaroxaban) 20 Mg Tablet 20 Mg PO 1800 Movantik (Naloxegol Oxalate) 25 Mg Tablet 25 Mg PO 1200 Docusate Sodium 100 Mg Capsule 100 Mg PO 1200 Oyster Shell Calcium (Calcium Carbonate) 500 Mg Tablet 1,000 Mg PO 1200 Loratadine 10 Mg Tablet 10 Mg PO 1200 Osmolite 1 Jose Raul (Lactose-Reduced Food) 237 Ml Liquid 237 Ml PO BID Culturelle (Lactobacillus Rhamnosus GG) 1 Each Capsule 1 Cap PO BID Ensure Plus (Lactose-Reduced Food) 237 Ml Liquid 237 Ml PO BID Esomeprazole Magnesium 20 Mg Capsule.dr 20 Mg PO DAILY Imodium A-D (Loperamide HCl) 2 Mg Tablet 2 Mg PO DAILY PRN Milk of Magnesia (Magnesium Hydroxide) 400 Mg/5 Ml Oral.susp 30 Ml PO DAILY PRN Multivitamins (Multivitamin) 1 Each Tablet 1 Tab PO 1200 Acetaminophen 325 Mg Tablet 650 Mg PO Q4H PRN TAKES 2 (325 MG) TABLETS / MAY ALSO TAKE FOR ELEVATED TEMPERATURE Vitamin B-12 (Cyanocobalamin (Vitamin B-12)) 500 Mcg Tablet 500 Mcg PO 1200 GIVE WITH 2 (1000 MCG) TABLETS TO EQUAL 2500 MCG TOTAL Aspirin EC (Aspirin) 81 Mg Tablet.dr 81 Mg PO 1200 Fentanyl Patch 100 MCG (Fentanyl) 1 Each Patch.td72 100 Mcg TD Q72H Vitamin B-12 (Cyanocobalamin (Vitamin B-12)) 1,000 Mcg Tablet 1,000 Mcg PO 1200 GIVE WITH (500 MCG) TABLET FOR 2500 MCG TOTAL DOSE Digoxin 125 Mcg Tablet 125 Mcg PO DAILY Vitamin D3 (Cholecalciferol (Vitamin D3)) 1,000 Unit Tablet 1,000 Unit PO 1200 Bisacodyl 10 Mg Supp.rect 10 Mg RC DAILY PRN Oxycodone HCl 15 Mg Tablet 15 Mg PO Q6H Citalopram HBr (Citalopram Hydrobromide) 20 Mg Tablet 20 Mg PO 1200 Levothyroxine Sodium 50 Mcg Tablet 50 Mcg PO 1000 My orders: Orders - LORI LEMUS MD General/Regular (05/03/17 Lunch) Fentanyl Patch (Duragesic Patch) (05/04/17 09:15) Oxycodone Immediate Rel Tablet (Oxyir Ta (05/04/17 12:30) Bisacodyl Suppository (Dulcolax Supposit (05/04/17 10:15) Attending Discharge (05/04/17 10:10) LORI LEMUS MD May 04, 2017 10:23 am
--- NOTE | 2017-05-04 10:29 | Discharge Summary ---
Diagnosis/Chief Complaint Date of Admission May 02, 2017 at 12:10 Date of Discharge Discharge Date: May 04, 2017 Discharge Time: 1330 Admission Diagnosis Admission Diagnosis see problem list below and at end of discharge summary SACRAL FRACTURE UNCONTROLLED PAIN DECREASED APPETITE CHRONIC PAIN SYNDROME DEPRESSION ANXIETY ATRIAL FIBRILLATION CHRONIC ANTICOAGULATION Discharge Diagnosis SACRAL FRACTURE UNCONTROLLED PAIN DECREASED APPETITE CHRONIC PAIN SYNDROME DEPRESSION ANXIETY ATRIAL FIBRILLATION CHRONIC ANTICOAGULATION Reason Hospital Visit Pt is an 87 y/o female who is known to me from clinic. She has history of chronic pain syndrome and is chronically taking oxycodone and uses fentanyl patches for back pain. She has history of insufficiency fractures from osteoporosis and has had kyphoplasty in the past with minimal improvement in her symptoms of pain. She had a fall on 04/27/17, outpatient xrays did not reveal a fracture, she was treated conservatively, but her pain continued. She was see in the office on Sunday of this week with plans for inpatient observation for pain medication adjustments and iv fluids and a CT of the pelvis. The CT scan of the pelvis revealed a sacral insufficiency fracture. Discharge Summary Discharge Physical Examination Allergies: Coded Allergies: penicillin G (Verified Allergy, Severe, THROAT SWELLED, COULDN'T BREATHE, 03/18/07) Sulfa (Sulfonamide Antibiotics) (Verified Allergy, Unknown, 04/16/07) hydrocodone bit (Verified Allergy, Unknown, 07/14/14) morphine (Verified Allergy, Unknown, 09/17/06) Vitals & I&Os Vital Signs Date Time Temp Pulse Resp B/P (MAP) Pulse Ox O2 Delivery O2 Flow Rate FiO2 05/04/17 09:15 93 Nasal Cannula 0.50 05/04/17 08:00 97.9 91 18 120/73 General Appearance: Alert, Oriented X3, Cooperative, Mild Distress (due to pain ) HEENT: Atraumatic, PERRLA Respiratory: Clear to Auscultation Cardiovascular: Other (irregulary irregular - rate controlled) Abdominal: Normal Bowel Sounds, Soft Extremities: No Cyanosis, No Edema, Normal Pulses Skin: No Significant Lesion Neuro: Cranial Nerves 3-12 NL Psych/Mental Status: Mental Status NL, Mood NL Hospital Course SACRAL FRACTURE UNCONTROLLED PAIN DECREASED APPETITE CHRONIC PAIN SYNDROME DEPRESSION ANXIETY ATRIAL FIBRILLATION CHRONIC ANTICOAGULATION SACRAL FRACTURE WITH UNCONTROLLED PAIN - IV FENTANYL AND CONTINUE WITH FENTANYL PATCH, I HAVE ADDED AN EXTRA 25MCG PATCH TO HER 100MCG PATCH, AND CONTINUE TO INCREASE THE PATCH ABLE AN OUTPATIENT TO ALLOW FOR BETTER PAIN CONTROL HER FRACTURE HEALS. WILL NEED TO LOOK INTO [facility] OR [facility] FOR IMPROVEMENT OF HER OSTEOPOROSIS AND HOPEFULLY DECREASE IN HER FURTHER FRACTURE RISK. I HAVE ALSO INCREASED HER OXYCODONE FOLLOWS: - OXYCODONE IR 5MG - PT IS TO TAKE 15 MG FOR MILD TO MODERATE PAIN AND 30MG FOR MODERATE TO SEVERE PAIN - SHE CAN HAVE A DOSE EVERY 4 HOURS PRN FOR UNCONTROLLED PAIN. I HAVE ATTEMPTED TO CALL HER DAUGHTER - AND GOT VOICEMAIL, THEREFORE LEFT A MESSAGE. [facility] DOES NOT MEET INPATIENT CRITERIA FOR CONTINUED STAY AT THE HOSPITAL. I HAVE HAD THE HOSPITAL CARE MANAGEMENT TEAM LOOK INTO HER ABILITY TO BE KEPT IN THE HOSPITAL BUT SHE DOES NOT HAVE SUFFICIENT CRITERIA FOR CONTINUED INPATIENT STAY. SHE CANNOT BE PUT ON INPATIENT REHAB DUE TO HER INABILITY TO TOLERATE THE 3 HOURS OF THERAPY NEEDED TO KEEP HER ON INPATIENT REHAB. I UNDERSTAND THAT SHE IS STILL IN PAIN, BUT WE WILL HAVE TO BE AGGRESSIVE AN OUTPATIENT WITH HER PAIN CONTROL. THE HALFWAY MUST ALERT THIS PROVIDER OR THE ON-CALL PROVIDER ABOUT [facility]'S LEVEL OF PAIN CONTROL. I HAVE RECOMMENDED THAT SHE NEEDS TO HAVE BED REST AND SHE HEALS SHE WILL NEED MORE MOBILIZATION. DECREASED APPETITE - IMPROVED - PARTIALLY DECREASED DUE TO PAIN AND NAUSEA - NAUSEA IS DUE TO ORAL PAIN MEDICATIONS. WE WILL CONTINUE TO ENCOURAGE PO INTAKE. CHRONIC PAIN SYNDROME - MONITOR PAIN HER ACUTE PAIN IMPROVES WE WILL NEED TO DECREASE HER PAIN MEDICATION IN ACCORDANCE WITH HER LEVEL OF PAIN. DEPRESSION AND ANXIETY - RESTARTED CELEXA AND ANXIOLYTICS. ATRIAL FIBRILLATION WITH CHRONIC ANTICOAGULATION - RESTARTED XARELTO AND DIGOXIN. Discharge Condition at discharge stable, still in pain Instructions to patient/family Please see electronic discharge instructions given to patient. Discharge Medications Reviewed and agree with Discharge Medication list on patient's Discharge Instruction sheet Clinical Quality Measures DVT/VTE Risk/Contraindication: Risk Factor Score Per Nursin RFS Level Per Nursing on Admit: 3=High Diagnosis/Problems Diagnosis/Problems (1) Sacral insufficiency fracture Status: Acute Qualifiers: Qualified Codes: M84.48XA - Pathological fracture, other site, initial encounter for fracture (2) Chronic anticoagulation Status: Chronic (3) Chronic pain syndrome Status: Chronic (4) Depression Status: Chronic Qualifiers: (5) Anxiety Status: Chronic (6) Atrial fibrillation Status: Chronic Qualifiers: Qualified Codes: I48.2 - Chronic atrial fibrillation (7) Uncontrolled pain Status: Acute (8) Osteoporosis with current pathological fracture Status: Acute Qualifiers: Qualified Codes: M80.00XA - Age-related osteoporosis with current pathological fracture, unspecified site, initial encounter for fracture (9) 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
[2017-05-04] MEDS: DOCUSATE SODIUM 100 MG (COLACE) CAP PO SCH (12:09)
[2017-05-04] MEDS: MULTIVIT W/MINERALS TAB (THERAGRAN M) PO SCH (12:10)
[2017-05-04] MEDS: CYANOCOBALAMIN 500 MCG TAB (VITAMIN B-12) PO SCH (12:10)
[2017-05-04] MEDS: LORATADINE (CLARITIN) 10 MG TAB PO SCH (12:10)
[2017-05-04] MEDS: VITAMIN D3 1,000 UNITS (CHOLECALCIFEROL) TABLET PO SCH (12:10)
[2017-05-04] MEDS: ASPIRIN E.C. 81 MG (ECOTRIN) TAB PO SCH (12:10)
[2017-05-09] MEDS ORDERED: ESTRADIOL VAGINAL CREAM 42.5 GM (ESTRACE) VG SCH (09:15)
[2017-05-17] MEDS ORDERED: OXYC-529 PO ×2 (08:54→08:55)
[2017-05-21] MEDS ORDERED: RIVA15TA PO (09:30)
== END 2017-05-04 10:10 ==
LOC: UNDOADMOB 12:02 → 4TH 12:02
PROVIDERS: ADMIT Family Medicine; ATTEND Family Medicine
DX: M80.08XA Age-related osteoporosis with current pathological fracture, vertebra(e), initial encounter for fracture (principal); G89.29 Other chronic pain; I48.2 Chronic atrial fibrillation; F33.9 Major depressive disorder, recurrent, unspecified; F41.9 Anxiety disorder, unspecified; K59.03 Drug induced constipation; Z79.01 Long term (current) use of anticoagulants; Z79.891 Long term (current) use of opiate analgesic; Z79.899 Other long term (current) drug therapy
CPT/HCPCS: 36415; 72192; 80053; 85027; 87088; 99211; G0378

== ENCOUNTER 2017-05-16 22:17 | Inpatient (IN) | payer MEDICARE, MEDICAID ==
[~2017-05-16] VITALS: Ht 149.9 cm; Wt 51.7 kg
[~2017-05-16 22:17] MED LIST changes: +ACET325T49 PO; +ALPR0.254 PO; +ASPI-983 PO; +BISA10SU6 RC; +CALC500T34 PO; +CHOL10003 PO; +CITA20TA7 PO; +CLIN150C17 PO; +CYAN10006 PO; +CYAN500T2 PO; +DIGO125T PO; +DOCU100C37 PO; +DOXE10CA29 PO; +ESOM20CA37 PO; +ESTR42.52 VG; +FENT1PAT11 TD; +FENT1PAT8 TD; +LACT-35 PO; +LACT1CAP39 PO; +LEVO50TA6 PO; +LOPE-134 PO; +LOPE2TAB32 PO; +LORA10TA7 PO; +MAG30ORA2 PO; +MAGN400O7 PO; +MULT1TAB69 PO; +NALO25TA PO; +ONDA4TAB10 PO; +OXYC15TA79 PO; +Oxycodone Hcl PO; +POLY255P PO; +RIVA20TA PO; +[UNRECOGNIZED DRUG - CODE] PO
--- OUTSIDE RECORDS SUMMARY | 2017-05-16 23:17 | XMS REPORT | Clinical Summary ---
Author Author [facility] Organization [facility] Address Unknown Phone Unavailable Care Team Providers Care Medical Records Library Professor Name Role Phone PCP Unavailable Source Comments Some departments are not documenting in the electronic medical record. If you do not see the information that you expected, contact Release of Information in the Health Information Management department at [phone] for further assistance in locating additional records.[facility] Allergies Active Allergy Reactions Severity Noted Date Comments Penicillins High 01/02/2005 Allergy recorded in SMS: PENNICILLIN~Reactions: ANAPHYLAXIS Morphine NAUSEA AND VOMITING 06/11/2008 Sulfa (Sulfonamide 06/11/2008 Antibiotics) Current Medications Prescription [...] Smoker Alcohol Use Drinks/Week oz/Week Comments No Sex Assigned at Date Recorded Not on file Last Filed Vital Signs Vital Sign Reading Time Taken Blood Pressure 129/73 06/11/2008 12:00 PM CDT Pulse 83 06/11/2008 12:00 PM CDT Temperature 37.3 C (99.1 F) 06/11/2008 12:00 PM CDT Respiratory Rate - - Oxygen Saturation 96% 06/11/2008 12:00 PM CDT Inhaled Oxygen - - Concentration Weight - - Height - - Body Mass Index - - Plan of Treatment Health Maintenance Due Date Last Done Comments PHYSICAL (COMPREHENSIVE) 1936 EXAM PERTUSSIS VACCINE 1940 TETANUS VACCINE 1946 SHINGLES VACCINE 1989 OSTEOPOROSIS SCREENING 1994 PREVNAR/PNEUMOVAX (#1) 1994 INFLUENZA VACCINE 05/20/2017 Results Not on filefrom Last 3 Months
[2017-05-16] MEDS ORDERED: NS IV 500 ML 500 ML ONE (23:21)
[2017-05-16 23:49] LABS: BASOPHILS % (AUTO) 0 % (0-10); EOSINOPHILS % (AUTO) 0 % (0-10); LYMPHOCYTES # (AUTO) 1.2 X 10^3 (1.0-4.0); LYMPHOCYTES % (AUTO) 14 % (12-44); MEAN CORPUSCULAR HEMOGLOBIN 30 PG (25-34); MEAN CORPUSCULAR HGB CONC 31 G/DL (32-36); MEAN CORPUSCULAR VOLUME 95 FL (80-99); MEAN PLATELET VOLUME 11.2 FL (7.4-10.4); MONOCYTES # (AUTO) 0.8 X 10^3 (0.0-1.0); MONOCYTES % (AUTO) 9 % (0-12); NEUTROPHILS # (AUTO) 6.7 X 10^3 (1.8-7.8); NEUTROPHILS % (AUTO) 77 % (42-75); PLATELET COUNT 269 10^3/uL (130-400); RED BLOOD COUNT 4.02 10^6/uL (4.35-5.85); RED CELL DISTRIBUTION WIDTH 14.1 % (10.0-14.5); WHITE BLOOD COUNT 8.6 10^3/uL (4.3-11.0)
[2017-05-16 23:59] LABS: BILIRUBIN,URINE NEGATIVE (NEGATIVE); KETONES,URINE 1+ (NEGATIVE); LEUKOCYTE ESTERASE ,URINE 1+ (NEGATIVE); NITRITE,URINE NEGATIVE (NEGATIVE); PH,URINE 5 (5-9); PROTEIN,URINE 2+ (NEGATIVE); UROBILINOGEN,URINE 1 MG/DL (NORMAL)
[2017-05-17] MEDS ORDERED: NS IV 500 ML 500 ML IV ONE (00:01)
[2017-05-17 00:05] LABS: ALBUMIN 3.7 GM/DL (3.2-4.5); BILIRUBIN,TOTAL 0.6 MG/DL (0.1-1.0); CALCIUM 9.6 MG/DL (8.5-10.1); CREATININE SERUM 1.29 MG/DL (0.60-1.30); POTASSIUM 4.8 MMOL/L (3.6-5.0); TOTAL PROTEIN 7.5 GM/DL (6.4-8.2)
[2017-05-17 00:11] LABS: DIGOXIN 0.48 NG/ML (0.80-2.00)
--- NOTE | 2017-05-17 00:13 | ED General ---
General Chief Complaint: Fever-Adult/Adol Stated Complaint: FEVER;NOT FEELING WELL Nursing Triage Note: PT ARRIVED [facility], Samanta RIVERA REPORTS PATIENT HAD 99.6 TEMP AND CONCERNED THE PT IS WITHDRAWING FROM DECREASING PAIN MEDS OVER LAST 24 HRS. Nursing Sepsis Screen: No Definite Risk History of Present Illness Time Seen by Provider: 23:07 Initial Comments Here from intermediate with report of fever, increasing sleeping and fatigue. Apparently temperature was 99.6. Increasingly tired and confused and difficult to arouse per family. Apparently had low O2 sat but was not on full oxygen. O2 sat okay now on 3 L via nasal cannula. Does have report of cough and nausea but no vomiting. Decreased urination. Denies pain but feels weak. Timing/Duration: 24 Hours Severity: Moderate Associated Systoms: No Chest Pain, Cough, Fever/Chills, Loss of Appetite, Malaise, Nausea/Vomiting, Shortness of Air, Weakness Allergies and Home Medications Allergies Coded Allergies: penicillin G (Verified Allergy, Severe, THROAT SWELLED, COULDN'T BREATHE, 03/18/07) Sulfa (Sulfonamide Antibiotics) (Verified Allergy, Unknown, 04/16/07) hydrocodone bit (Verified Allergy, Unknown, 07/14/14) morphine (Verified Allergy, Unknown, 09/17/06) Home Medications Acetaminophen 325 Mg Tablet, 650 MG PO Q4H PRN for PAIN-MILD, (Reported) TAKES 2 (325 MG) TABLETS / MAY ALSO TAKE FOR ELEVATED TEMPERATURE Alprazolam 0.25 Mg Tablet, 0.25 MG PO TID PRN for ANXIETY, (Reported) Aspirin 81 Mg Tablet.dr, 81 MG PO 1200, (Reported) Bisacodyl 10 Mg Supp.rect, 10 MG RC DAILY PRN for CONSTIPATION-4TH LINE, ( Reported) Calcium Carbonate 500 Mg Tablet, 1,000 MG PO 1200, (Reported) Cholecalciferol (Vitamin D3) 1,000 Unit Tablet, 1,000 UNIT PO 1200, (Reported) Citalopram Hydrobromide 20 Mg Tablet, 20 MG PO 1200, (Reported) Clindamycin HCl 150 Mg Capsule, 600 MG PO UD, (Reported) TAKES 4 (150 MG) CAPSULES 1 HOUR PRIOR TO DENTAL APPOINTMENTS Cyanocobalamin (Vitamin B-12) 1,000 Mcg Tablet, 1,000 MCG PO 1200, (Reported) GIVE WITH (500 MCG) TABLET FOR 2500 MCG TOTAL DOSE Cyanocobalamin (Vitamin B-12) 500 Mcg Tablet, 500 MCG PO 1200, (Reported) GIVE WITH 2 (1000 MCG) TABLETS TO EQUAL 2500 MCG TOTAL Digoxin 125 Mcg Tablet, 125 MCG PO DAILY, (Reported) Docusate Sodium 100 Mg Capsule, 100 MG PO 1200, (Reported) Docusate Sodium 100 Mg Capsule, 100 MG PO DAILY PRN for CONSTIPATION-1ST LINE, ( Reported) Doxepin HCl 10 Mg Capsule, 10 MG PO 1800, (Reported) Esomeprazole Magnesium 20 Mg Capsule.dr, 20 MG PO DAILY, (Reported) Estradiol 42.5 Gm Cream.appl, 1 GM VG We, (Reported) ON SUNDAY Fentanyl 1 Each Patch.td72, 100 MCG TD Q72H, (Reported) Fentanyl 1 Each Patch.td72, 25 MCG TD Q72H for 30 Days, #10 use in addition to the 100mcg patch - change every 72 hours Prescribed by: LORI LEMUS on 05/04/17 1019 Lactobacillus Rhamnosus GG 1 Each Capsule, 1 CAP PO BID, (Reported) Lactose-Reduced Food 237 Ml Liquid, 237 ML PO BID, (Reported) Lactose-Reduced Food 237 Ml Liquid, 237 ML PO BID, (Reported) Levothyroxine Sodium 50 Mcg Tablet, 50 MCG PO 1000, (Reported) Loperamide HCl 2 Mg Tablet, 2 MG PO DAILY PRN for LOOSE STOOLS, (Reported) Loperamide HCl 2 Mg Tablet, 2-4 MG PO Q6H PRN for DIARRHEA, (Reported) TAKES 1-2 OF A (2 MG) TABLET Loratadine 10 Mg Tablet, 10 MG PO 1200, (Reported) Mag Hydrox/Al Hydrox/Simeth 30 Ml Oral.susp, 30 ML PO Q4H PRN for INDIGESTION, ( Reported) Magnesium Hydroxide 400 Mg/5 Ml Oral.susp, 30 ML PO DAILY PRN for CONSTIPATION- 7TH LINE, (Reported) Multivitamin 1 Each Tablet, 1 TAB PO 1200, (Reported) Naloxegol Oxalate 25 Mg Tablet, 25 MG PO 1200, (Reported) Ondansetron HCl 4 Mg Tablet, 4 MG PO Q6H PRN for NAUSEA/VOMITING-1ST LINE, ( Reported) Polyethylene Glycol 3350 255 Gm Powder, 17 GM PO Q48H PRN for CONSTIPATION-2ND LINE, (Reported) Rivaroxaban 20 Mg Tablet, 20 MG PO 1800, (Reported) [Oxycodone Hcl] 5 MG TAB, 15-30 MG PO Q4H PRN for PAIN-MODERATE, #180 Ref 1 use 15mg if mild to moderate pain, use 30mg if moderate to severe pain PRN for sacral fx pain, call if pain is not controlled with medications Prescribed by: LORI LEMUS on 05/04/17 1019 Constitutional: see HPI, No chills, No fever EENTM: no symptoms reported Respiratory: cough, No short of breath, No wheezing Cardiovascular: No chest pain, No edema Gastrointestinal: No abdominal pain, nausea, No vomiting Genitourinary: decreased output, No dysuria : No Musculoskeletal: no symptoms reported Skin: no symptoms reported Psychiatric/Neurological: Weakness All Other Systems Reviewed Negative Unless Noted: Yes Past Jqqkpwh-Mjflsy-Mmavxi Hx Patient Social History Alcohol Use: Denies Use Recreational Drug Use: No Smoking Status: Unknown if Ever Smoked 2nd Hand Smoke Exposure: No Recent Foreign Travel: No Contact w/Someone Who Travel: No Recent Infectious Disease Expo: No Recent Hopitalizations: No Physical Abuse: No Sexual Abuse: No Immunizations Up To Date Tetanus Booster (TDap): Unknown PED Vaccines UTD: No Date of Pneumonia Vaccine: May 22, 2011 Date of Influenza Vaccine: May 20, 2014 Seasonal Allergies Seasonal Allergies: No Surgeries History of Surgeries: Yes (REPAIR LEFT HIP WITH FARTUN, RIGHT 4TH TOE REMOVED) Surgeries: Orthopedic, Tonsillectomy Respiratory History of Respiratory Disorde: Yes Respiratory Disorders: Pneumonia Cardiovascular History of Cardiac Disorders: Yes (A-FIB) Cardiac Disorders: Atrial Fibrillation, Deep Vein Thrombosis Neurological History of Neurological Disord: Yes Reproductive System Hx Reproductive Disorders: No Sexually Transmitted Disease: No ARMORED VEHICLE OFFICER History: Hysterectomy Genitourinary Genitourinary Disorders: UTI-Chronic Gastrointestinal History of Gastrointestinal Di: No Gastrointestinal Disorders: Gastroesophageal Reflux, Chronic Constipation Musculoskeletal History of Musculoskeletal Dis: Yes Musculoskeletal Disorders: Osteoporosis, Arthritis, Fractures Endocrine History of Endocrine Disorders: No HEENT HEENT Disorders: Cataract Loss of Vision: Denies Hearing Impairment: Hard of Hearing Cancer History of Cancer: No Psychosocial History of Psychiatric Problem: Yes Behavioral Health Disorders: Depression Suicide Risk Score: 0 Integumentary History of Skin or Integumenta: No Blood Transfusions History of Blood Disorders: Yes (hx of "blood clots") Adverse Reaction to a Blood Tr: No (Has had several blood transfusions) Reviewed Nursing Assessment Reviewed/Agree w Nursing PMH: Yes Family Medical History Significant Family History: No Pertinent Family Hx Family Medial History: FH: cancer 19 FATHER Peritonitis 19 MOTHER Physical Exam Vital Signs Vital Sign - Last 12Hours 05/16/17 22:17 Temp 99.3 Pulse 87 Resp 16 B/P (MAP) 145/83 Pulse Ox 96 O2 Delivery Nasal Cannula O2 Flow Rate 3.00 Capillary Refill : Less Than 3 Seconds General Appearance: No Apparent Distress, WD/WN HEENT: PERRL/EOMI, Pharynx Normal Neck: Non Tender, Supple Respiratory: Lungs Clear, Normal Breath Sounds Cardiovascular: Regular Rate, Rhythm, No Murmur Gastrointestinal: Non Tender, Soft Back: Normal Inspection, No CVA Tenderness, No Vertebral Tenderness Extremity: Normal Range of Motion, Non Tender Neurologic/Psychiatric: Depressed Affect, Motor Weakness (global), Other ( sluggish but arouses and answers questions and follows commands.Family and place. Is able to tell her own story.) Skin: Warm/Dry, Ecchymosis (multiple bruises over her upper extremities.) Focused Exam Evaluation Lactate Level Laboratory Tests 05/16/17 23:23: Lactic Acid Level 0.76 Lactic Acid Level Laboratory Tests Test 05/16/17 23:23 Lactic Acid Level 0.76 MMOL/L (0.50-2.00) Progress/Results/Core Measures Results/Orders Lab Results Laboratory Tests Test 05/16/17 23:23 05/17/17 00:01 Range/Units White Blood Count 8.6 4.3-11.0 10^3/uL Red Blood Count 4.02 L 4.35-5.85 10^6/uL Hemoglobin 12.0 11.5-16.0 G/DL Hematocrit 38 35-52 % Mean Corpuscular Volume 95 80-99 FL Mean Corpuscular Hemoglobin 30 25-34 PG Mean Corpuscular Hemoglobin Concent 31 L 32-36 G/DL Red Cell Distribution Width 14.1 10.0-14.5 % Platelet Count 269 130-400 10^3/uL Mean Platelet Volume 11.2 H 7.4-10.4 FL Neutrophils (%) (Auto) 77 H 42-75 % Lymphocytes (%) (Auto) 14 12-44 % Monocytes (%) (Auto) 9 0-12 % Eosinophils (%) (Auto) 0 0-10 % Basophils (%) (Auto) 0 0-10 % Neutrophils # (Auto) 6.7 1.8-7.8 X 10^3 Lymphocytes # (Auto) 1.2 1.0-4.0 X 10^3 Monocytes # (Auto) 0.8 0.0-1.0 X 10^3 Eosinophils # (Auto) 0.0 0.0-0.3 10^3/uL Basophils # (Auto) 0.0 0.0-0.1 10^3/uL Urine Color YELLOW Urine Clarity SLIGHTLY CLOUDY Urine pH 5 5-9 Urine Specific [place] 1.025 H 1.016-1.022 Urine Protein 2+ H NEGATIVE Urine Glucose (UA) NEGATIVE NEGATIVE Urine Ketones 1+ H NEGATIVE Urine Nitrite NEGATIVE NEGATIVE Urine Bilirubin NEGATIVE NEGATIVE Urine Urobilinogen 1 NORMAL MG/DL Urine Leukocyte Esterase 1+ H NEGATIVE Urine RBC (Auto) 2+ H NEGATIVE Urine RBC RARE /HPF Urine WBC 5-10 H /HPF Urine Squamous Epithelial Cells 2-5 /HPF Urine Crystals NONE /LPF Urine Bacteria LARGE H /HPF Urine Casts NONE /LPF Urine Mucus NEGATIVE /LPF Urine Culture Indicated YES Sodium Level 134 L 135-145 MMOL/L Potassium Level 4.8 3.6-5.0 MMOL/L Chloride Level 95 L 98-107 MMOL/L Carbon Dioxide Level 28 21-32 MMOL/L Anion Gap 11 5-14 MMOL/L Blood Urea Nitrogen 22 H 7-18 MG/DL Creatinine 1.29 0.60-1.30 MG/DL Estimat Glomerular Filtration Rate 39 BUN/Creatinine Ratio 17 Glucose Level 83 70-105 MG/DL Lactic Acid Level 0.76 0.50-2.00 MMOL/L Calcium Level 9.6 8.5-10.1 MG/DL Total Bilirubin 0.6 0.1-1.0 MG/DL Aspartate Amino Transf (AST/SGOT) 574 H 5-34 U/L Alanine Aminotransferase (ALT/SGPT) 524 H 0-55 U/L Alkaline Phosphatase 52 40-136 U/L Total Protein 7.5 6.4-8.2 GM/DL Albumin 3.7 3.2-4.5 GM/DL Amylase Level 73 25-125 U/L Lipase 26 8-78 U/L Digoxin Level 0.48 L 0.80-2.00 NG/ML Acetaminophen Level < 10 L 10-30 UG/ML Prothrombin Time 27.5 H 12.2-14.7 SEC INR Comment 2.6 H 0.8-1.4 Activated Partial Thromboplast Time 40 H 24-35 SEC My Orders Orders - ABDULLAHI GAXIOLA MD Ns Iv 500 Ml (Sodium Chloride 0.9%) (05/16/17 23:21) Cbc With Automated Diff (05/16/17 23:23) Comprehensive Metabolic Panel (05/16/17 23:23) Digoxin (05/16/17 23:23) Lactic Acid Analyzer (05/16/17 23:23) Urinalysis (05/16/17 23:23) Blood Culture (05/16/17 23:23) Blood Culture (05/16/17 23:23) Saline Lock/Iv-Start (05/17/17 00:01) Ns Iv 500 Ml (Sodium Chloride 0.9%) (05/17/17 00:01) Urine Culture (05/16/17 23:23) Amylase (05/17/17 00:08) Lipase (05/17/17 00:08) Acetaminophen (05/17/17 00:13) Protime With Inr (05/17/17 00:16) Partial Thromboplastin Time (05/17/17 00:16) Chest 1 View, Ap/Pa Only (05/17/17 ) Medications Given in ED Current Medications Medications Dose Ordered Sig/Josef Route Start Time Stop Time Status Last Admin Dose Admin Sodium Chloride 500 ml @ 0 mls/hr Q0M ONCE IV 05/17/17 00:01 05/17/17 00:02 DC 05/16/17 23:30 999 MLS/HR Vital Signs/I&O Vital Sign - Last 12Hours 05/16/17 22:17 Temp 99.3 Pulse 87 Resp 16 B/P (MAP) 145/83 Pulse Ox 96 O2 Delivery Nasal Cannula O2 Flow Rate 3.00 Blood Pressure Mean: 103 Progress Note : Progress Note Seen and evaluated. IV, normal saline 500 mL bolus, labs, chest x-ray, UA, blood cultures and lactic acid ordered. Monitor patient. 0010: long term date night sitter called and reported finding Tylenol in the patient's room. Patient' s liver enzymes are markedly elevated. Acetaminophen level added as well as coags due to multiple bruising and concerns for coagulopathy after noting all the bruises. Monitor patient. 0112: I did discuss the case with Dr. Lemus at 0105. She accepts patient for admission, observation status. Rocephin 1 g IV for urinary tract infection. She will follow the liver enzymes. This was discussed with the patient and family who agree with plan. Departure Communication (Admissions) Time/Spoke to Admitting Phy: 01:05 Impression Impression: Primary Impression: Urinary tract infection Qualified Codes: N30.00 - Acute cystitis without hematuria Additional Impressions: Transaminitis Altered mental status Qualified Codes: R40.0 - Somnolence Disposition: ADMITTED INPATIENT Condition: Stable Admissions Decision to Admit Reason: Admit from ER (General) Decision to Admit/Date: May 17, 2017 Time/Decision to Admit Time: 01:05 Departure-Patient Inst. Referrals: LORI LEMUS MD (PCP/Family) Primary Care Physician ABDULLAHI GAXIOLA MD May 17, 2017 00:13
[2017-05-17 00:24] LABS: INR 2.6 (0.8-1.4); PROTHROMBIN TIME PATIENT 27.5 SEC (12.2-14.7)
[2017-05-17 00:31] LABS: AMYLASE 73 U/L (25-125); LIPASE 26 U/L (8-78)
[2017-05-17 00:33] LABS: ACETAMINOPHEN < 10 UG/ML (10-30)
[2017-05-17] MEDS ORDERED: cefTRIAXone INJECTION 1,000 MG in NS (IVPB) 50 ML IV ONE (01:15)
[2017-05-17 02:25] VITALS: BP 129/84
[2017-05-17] MEDS ORDERED: NS IV 1000 ML 1,000 ML IV SCH (03:15)
[2017-05-17 04:00] VITALS: BP 133/71
[2017-05-17 05:51] LABS: BASOPHILS % (AUTO) 0 % (0-10); EOSINOPHILS # (AUTO) 0.1 10^3/uL (0.0-0.3); EOSINOPHILS % (AUTO) 1 % (0-10); LYMPHOCYTES # (AUTO) 1.1 X 10^3 (1.0-4.0); LYMPHOCYTES % (AUTO) 16 % (12-44); MEAN CORPUSCULAR HEMOGLOBIN 30 PG (25-34); MEAN CORPUSCULAR HGB CONC 32 G/DL (32-36); MEAN CORPUSCULAR VOLUME 95 FL (80-99); MEAN PLATELET VOLUME 10.5 FL (7.4-10.4); MONOCYTES # (AUTO) 0.5 X 10^3 (0.0-1.0); MONOCYTES % (AUTO) 7 % (0-12); NEUTROPHILS # (AUTO) 5.3 X 10^3 (1.8-7.8); NEUTROPHILS % (AUTO) 76 % (42-75); PLATELET COUNT 225 10^3/uL (130-400); RED BLOOD COUNT 3.85 10^6/uL (4.35-5.85); RED CELL DISTRIBUTION WIDTH 14.1 % (10.0-14.5)
[2017-05-17 06:16] LABS: ALBUMIN 3.4 GM/DL (3.2-4.5); BILIRUBIN,TOTAL 0.5 MG/DL (0.1-1.0); CALCIUM 9.1 MG/DL (8.5-10.1); CREATININE SERUM 0.98 MG/DL (0.60-1.30); POTASSIUM 4.4 MMOL/L (3.6-5.0)
--- NOTE | 2017-05-17 07:38 | Diagnostic Imaging Report ---
INDICATION: Chest tightness and shortness of breath x1 week. Frontal chest obtained at 11:53 p.m. and compared to 02/18/2017. FINDINGS: Heart is enlarged. There are chronic appearing increased interstitial markings. There is no pneumothorax or pleural fluid. There is some mild infiltrate in the left lung. IMPRESSION: Chronic appearing increased interstitial markings and cardiomegaly. Poor inspiration. Questionable mild infiltrate in left midlung. Suggest followup. Dictated by: Dictated on workstation # [id number]
[2017-05-17] MEDS ORDERED: CATHETER FLUSH 10 ML SYR IV PRN (07:45)
[2017-05-17 08:00] VITALS: BP 137/74
[2017-05-17] MEDS ORDERED: OXYC5TAB71 PO ×2 (08:54→08:55)
[2017-05-17] MEDS ORDERED: ESTR42.52 VG (08:55)
[2017-05-17] MEDS ORDERED: FENT1PAT57 TD (08:55)
--- NOTE | 2017-05-17 09:11 | History & Physicial ---
History of Present Illness History of Present Illness Reason for visit/HPI PT IS AN 87 Y/O FEMALE WHO IS KNOWN TO ME FROM CLINIC. SHE PRESENTED TO THE EMERGENCY DEPARTMENT WITH CONFUSION THAT HAD STARTED OVER SEVERAL HOURS PRIOR TO HER ADMISSION. WHILE AT THE INTERMEDIATE SHE HAD BEEN INCREASINGLY FATIGUED , HAD NOT RECEIVED ANY OF HER USUAL PAIN MEDICATION DURING THE DAY DUE TO HER SOMNOLENCE. HER NURSE AT THE FACILITY NOTED A BOTTLE OF TYLENOL HIDDEN UNDER HER PILLOW. PT COMPLAINS OF PAIN IN HER LOW BACK, NAUSEA, CONSTIPATION. Date of Admission May 17, 2017 at 01:11 Date Seen by Provider: May 17, 2017 Time Seen by Provider: 09:10 Attending Physician Lori Lemus MD Admitting Physician Lori Lemus MD Consult Allergies and Home Medications Allergies Coded Allergies: penicillin G (Verified Allergy, Severe, THROAT SWELLED, COULDN'T BREATHE, 03/18/07) Sulfa (Sulfonamide Antibiotics) (Verified Allergy, Unknown, 04/16/07) hydrocodone bit (Verified Allergy, Unknown, 07/14/14) morphine (Verified Allergy, Unknown, 09/17/06) Home Medications Acetaminophen 325 Mg Tablet, 650 MG PO Q4H PRN for PAIN-MILD, (Reported) TAKES 2 (325 MG) TABLETS / MAY ALSO TAKE FOR ELEVATED TEMPERATURE Alprazolam 0.25 Mg Tablet, 0.25 MG PO TID PRN for ANXIETY, (Reported) Aspirin 81 Mg Tablet.dr, 81 MG PO DAILY, (Reported) Bisacodyl 10 Mg Supp.rect, 10 MG RC DAILY PRN for CONSTIPATION-4TH LINE, ( Reported) Calcium Carbonate 500 Mg Tablet, 1,000 MG PO DAILY, (Reported) Cholecalciferol (Vitamin D3) 1,000 Unit Tablet, 1,000 UNIT PO DAILY, (Reported) Citalopram Hydrobromide 20 Mg Tablet, 20 MG PO DAILY, (Reported) Clindamycin HCl 150 Mg Capsule, 600 MG PO UD, (Reported) TAKES 4 (150 MG) CAPSULES 1 HOUR PRIOR TO DENTAL APPOINTMENTS Digoxin 125 Mcg Tablet, 125 MCG PO DAILY, (Reported) Docusate Sodium 100 Mg Capsule, 100 MG PO DAILY, (Reported) Docusate Sodium 100 Mg Capsule, 100 MG PO DAILY PRN for CONSTIPATION-1ST LINE, ( Reported) Doxepin HCl 10 Mg Capsule, 10 MG PO 1800, (Reported) Esomeprazole Magnesium 20 Mg Capsule.dr, 20 MG PO DAILY, (Reported) Estradiol 42.5 Gm Cream.appl, 1 GM VG Sa, (Reported) Fentanyl 1 Each Patch.td72, 100 MCG TD Q72H, (Reported) USES WITH 25MCG PATCH Fentanyl 1 Each Patch.td72, 25 MCG TD Q72H, (Reported) USES WITH 100MCG PATCH Lactobacillus Rhamnosus GG 1 Each Capsule, 1 CAP PO BID, (Reported) Lactose-Reduced Food 237 Ml Liquid, 237 ML PO BID, (Reported) Lactose-Reduced Food 237 Ml Liquid, 237 ML PO BID, (Reported) Levothyroxine Sodium 50 Mcg Tablet, 50 MCG PO DAILY, (Reported) Loperamide HCl 2 Mg Tablet, 2-4 MG PO DAILY PRN for LOOSE STOOLS, (Reported) TAKES 1-2 OF A (2 MG) TABLET Loratadine 10 Mg Tablet, 10 MG PO DAILY, (Reported) Mag Hydrox/Al Hydrox/Simeth 30 Ml Oral.susp, 30 ML PO Q4H PRN for INDIGESTION, ( Reported) Magnesium Hydroxide 400 Mg/5 Ml Oral.susp, 30 ML PO DAILY PRN for CONSTIPATION- 7TH LINE, (Reported) Multivitamin 1 Each Tablet, 1 TAB PO DAILY, (Reported) Naloxegol Oxalate 25 Mg Tablet, 25 MG PO DAILY, (Reported) Ondansetron HCl 4 Mg Tablet, 4 MG PO Q6H PRN for NAUSEA/VOMITING-1ST LINE, ( Reported) Oxycodone HCl 5 Mg Tablet, 15 MG PO Q4H PRN for PAIN-MODERATE, (Reported) TAKES 3 (5MG) TABLETS Oxycodone HCl 5 Mg Tablet, 30 MG PO Q4H PRN for PAIN-SEVERE, (Reported) TAKES 6 (5MG) TABLETS Polyethylene Glycol 3350 255 Gm Powder, 17 GM PO Q48H PRN for CONSTIPATION-2ND LINE, (Reported) Rivaroxaban 20 Mg Tablet, 20 MG PO 1800, (Reported) Past Qlwqacv-Xkqepw-Aymqsi Hx Patient Social History Marrital Status: Living Status: LIVES AT [facility] Employed/Student: retired Alcohol Use: Denies Use Recreational Drug Use: No Smoking Status: Never a Smoker 2nd Hand Smoke Exposure: No Physical Abuse Screen: No Sexual Abuse: No Recent Foreign Travel: No Contact w/other who traveled: No Recent Hopitalizations: No Recent Infectious Disease Expo: No Immunizations Up To Date Tetanus Booster (TDap): Unknown Pediatric: No Date of Pneumonia Vaccine: May 22, 2011 Date of Influenza Vaccine: May 20, 2015 Seasonal Allergies Seasonal Allergies: No Surgeries Yes (REPAIR LEFT HIP WITH FARTUN, RIGHT 4TH TOE REMOVED) Orthopedic, Tonsillectomy Respiratory Yes Currently Using CPAP: No Currently Using BIPAP: No Cardiovascular Yes (A-FIB) Atrial Fibrillation, Deep Vein Thrombosis Neurological Yes Dementia Reproductive System : No Hx Reproductive Disorders: No Sexually Transmitted Disease: No HIV/AIDS: No Female Reproductive Disorders: Denies [employer] WORK[employer] History: Hysterectomy Genitourinary Yes UTI-Chronic Gastrointestinal No (DYSPHAGIA ) Gastroesophageal Reflux, Chronic Constipation Musculoskeletal Yes Osteoporosis, Arthritis, Fractures Endocrine History of Endocrine Disorders: Yes HEENT History of HEENT Disorders: Yes HEENT Disorders: Cataract Loss of Vision: Denies Hearing Impairment: Hard of Hearing Cancer No Psychosocial History of Psychiatric Problem: Yes Behavioral Health Disorders: Anxiety, Depression Integumentary History of Skin or Integumenta: No Blood Transfusions History of Blood Disorders: Yes (hx of "blood clots") Adverse Reaction to a Blood Tr: No (Has had several blood transfusions) Reviewed Nursing Assessment Reviewed/Agree w Nursing PMH: Yes Family Medical History Significant Family History: Heart Disease, Cancer, Hypertension Family Hx: Cardiovascular disease G8 BROTHER G8 BROTHER G8 BROTHER FH: cancer 19 FATHER Myocardial infarction G8 BROTHER Peritonitis 19 MOTHER Constitutional: No chills, No fever, malaise, weakness EENTM: No hoarseness, No mouth pain, No throat pain Respiratory: No cough, No dyspnea on exertion, No short of breath Cardiovascular: No chest pain, No palpitations Gastrointestinal: abdominal pain, other (INTERMITTENT DIARRHEA/CONSTIPATION) Genitourinary: frequency : No Musculoskeletal: back pain Psychiatric/Neurological: Anxiety, Depressed All Other Systems Reviewed Negative Unless Noted: Yes Physical Exam Vital Signs Vital Sign - Last 12Hours 05/16/17 22:17 Temp 99.3 Pulse 87 Resp 16 B/P (MAP) 145/83 Pulse Ox 96 O2 Delivery Nasal Cannula O2 Flow Rate 3.00 Capillary Refill : Less Than 3 SecondsLess Than 3 Seconds General Appearance: No Apparent Distress, Thin Eyes: Bilateral Eye Normal Inspection, Bilateral Eye PERRL, Bilateral Eye EOMI HEENT: PERRL/EOMI, Pharynx Normal Neck: Full Range of Motion, Supple Respiratory: Chest Non Tender, Decreased Breath Sounds Cardiovascular: Regular Rate, Rhythm, No Edema Gastrointestinal: Normal Bowel Sounds, Tenderness (LUQ, LLQ) Rectal: Deferred Back: Normal Inspection Extremity: No Pedal Edema Neurologic/Psychiatric: Alert, Oriented x3, Normal Mood/Affect Skin: Warm/Dry Lymphatic: No Adenopathy Assessment/Plan Assessment and Plan SEVERELY ELEVATED LIVER ENZYMES TRANSAMINITIS CONFUSION WEAKNESS UNCONTROLLED PAIN SACRAL FRACTURE HYPONATREMIA NAUSEA SEVERELY ELEVATED LIVER ENZYMES - TRANSAMINITIS - PT ADMITTED TO THE HOSPITAL FOR IV FLUIDS, SHE NECESSITATED ADMISSION DUE TO HER INABILITY TO KEEP DOWN FLUIDS TO ALLOW FOR IMPROVEMENT IN HER LIVER ENZYMES. CONFUSION AND WEAKNESS - IMPROVED FROM ADMISSION, BUT STILL QUITE WEAK. UNCONTROLLED PAIN DUE TO SACRAL FRACTURE - IV PAIN MEDICATION FOR CONTROL OF SYMPTOMS. HYPONATREMIA - IV FLUIDS, MONITOR SODIUM LEVEL. NAUSEA - PRN IV ANTI-EMETICS. DVT PROPHYLAXSIS WITH SCDS GI PROPHYLAXIS WITH PPI Problems: Admission Diagnosis SEVERELY ELEVATED LIVER ENZYMES TRANSAMINITIS CONFUSION WEAKNESS UNCONTROLLED PAIN SACRAL FRACTURE HYPONATREMIA NAUSEA Clinical Quality Measures DVT/VTE Risk/Contraindication: Risk Factor Score Per Nursin RFS Level Per Nursing on Admit: 4+=Very High LORI LEMUS MD May 17, 2017 09:11
[2017-05-17] MEDS ORDERED: MILK OF MAGNESIA 400 MG/5 ML 30 ML UDC PO PRN (09:45)
[2017-05-17] MEDS ORDERED: BISACODYL 10 MG SUPP (DULCOLAX) RC PRN (09:45)
[2017-05-17] MEDS ORDERED: ONDANSETRON 4 MG (ZOFRAN) ORAL DISSOLVE TAB PO PRN (10:30)
[2017-05-17] MEDS: AA 4.25% W/LYTES IN D5W IV SOL 1,000 ML IV SCH ×3 (10:46→19:20)
[2017-05-17] MEDS: LACTOBACILLUS Acidoph/Bulgar (LACTINEX/FLORANEX) TAB PO SCH ×2 (10:46→20:46)
[2017-05-17] MEDS: FENTANYL 25 MCG PATCH REMOVAL TP SCH (10:46)
[2017-05-17] MEDS: FENTANYL 100 MCG PATCH REMOVAL TP SCH (10:46)
[2017-05-17] MEDS: fentaNYL PATCH 100 MCG (DURAGESIC) TD SCH (10:50)
[2017-05-17] MEDS: fentaNYL PATCH 25 MCG (DURAGESIC) TD SCH (10:51)
[2017-05-17 12:00] VITALS: BP 123/64
--- NOTE | 2017-05-17 14:57 | Behavioral Health Consult ---
Consult- Consult Time Seen by Provider: 13:00 Date: 05/17/17 CPT Code: 59998 Psychodiagnostic Examination, 63770 +Interactive Complexity, 1 unit(s) Start Time: 1:00 pm Stop Time: 1:45 pm Chief Complaint: suicidal ideation Referral: Aarti Prescott is an 87-year-old, , female referred by Dr. Lemus for a clinical diagnostic assessment. Information for this evaluation was gathered from self-report and medical records. Presenting Problem: The presenting clinical problem is suicidal ideation. Aarti s daughter, Lizbeth, reported that Aarti has had some episodes of depressed mood. Lizbeth reported Aarti has thought she might be better off if she was not alive, but has never heard her make a statement about wanting to kill herself. Lizbeth reported she is from [place], so she does not get to see her mom that often. Aarti reported she has increased pain since she broke her tail bone two or three weeks ago. She stated she had started to feel better until yesterday when she woke up not feeling well. She reported she was not able to eat or drink yesterday and has vomited what she has tried to eat today. She stated she has felt down and questioned God why did I have to fall. She reported she had the thought she wished she was because of her pain. She stated she regretted that statement and told God she was sorry and did not mean it. She reported she would like to continue living, but would like for it to be with less pain. She denied any current suicidal thoughts or plans. She stated she has felt at times that she does not have much longer to live. She reported she has had occasional depression in the past, but it was minimal and brief. She stated she mostly worries at her Intellectual Disabled son in [place], daughter that has health issues, and a grandson with substance abuse problems. She reported she talks with her son on the phone and that helps. She stated the medication in her room was something that had been prescribed to her, but she had not taken it for a while. She reported she last took it approximately five weeks ago and a long time before that. Overall symptoms observed or reported requiring current level of care include anergia, anxiety, depressed mood, familial stress/strain, medical problems, sleep disturbance (onset delay/easily awakened), and worry. Observations/Mental Status: Aarti was lying in her hospital bed with her daughter and son-in-law present. Her daughter and son-in-law stayed for a little bit and then left. Overall appearance was unremarkable clinically. Aarti appeared to be an adequate historian. Observed gait and gross motor movements indicated facial signs of discomfort. In regards to pain, reported pain in chest, shoulder, and tailbone (therapist reported this to the nurse). Demi general approach to the evaluation was cooperative. Orientation was intact for person, place, time, and situation. Aarti evidenced good understanding of the reason for the appointment. Demi in-session behavior was cooperative. The predominant mood was depressed with affect appropriate to expressed concerns and presenting problem. However, she was able to joke and smile. Immediate attention and concentration was grossly intact. Memory functioning appeared to be intact. Level of intellectual functioning compared to same age peers was estimated to be in the average range. Thought processes were found to be generally logical, coherent and goal directed. Thought content appeared normal. There was no report or evidence of hallucinations or delusions. Psychomotor functioning was within normal limits. Tone of voice was normal and controlled. Expressive speech was marked by fluent speech and language. Eye contact was fair. Insight was average. Overall, style of interacting during the appointment was appropriate and motivated. Current/Previous Mental Health Treatment: Past psychiatric history was reported as none. History of self or other harm none reported. Abuse history: not assessed. Family history of mental health was reported as son with intellectual disability. Medical History: Medical conditions were reported as osteoporosis and recent tail bone fracture. Drug allergies: penicillin G, sulfa, hydrocodone bit, and morphine. Current physician is Dr. Lemus. Recreational Drug Usage: Substance abuse history was reported as none. Educational and Vocational Histories: Aarti is retired. Family and Social Histories: Aarti currently lives at [facility]. She stated she is not certain how long she has lived there, but it has been several years. She reported she has six children. She stated one of her daughters has been at [facility], but will be going to the [facility] to live. She reported she worries about this daughter as she has fallen several times. She stated she would like her daughter Lizbeth to stay longer, but she knows she needs to get home. She reported her daughter Nahun lives in the area, but is busy working on her masters degree. Summary of Assessment Information/Recommendations: Aarti is an 87-year-old female. 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 Current emotional symptoms are of mild intensity. Overall, prognosis is estimated to be good. Demi depressed mood appeared to be related to her recent tail bone injury that has significantly increased her pain. She does have some anxiety related to her son that has an Intellectual Disability and is in [place], [place]. She reported she would like her son to be closer. She stated she use to send him cards daily to a couple of times a week, but ran out of cards. Therapist talked with her daughter about this and she has agreed to get her mom some cards. Aarti agreed to report to her doctor or nursing staff if her depression increases. She reported she does not want an adjustment in her medication at this time. She does not appear to have any current suicidal ideations or plans. She was alert and oriented when this provider met with her. 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
[2017-05-17 16:00] VITALS: BP 123/64
[2017-05-17] MEDS: DOXEPIN 10 MG (SINEquan) CAP PO SCH (17:02)
[2017-05-17] MEDS: RIVAROXABAN 15 MG TABLET (XARELTO) PO SCH (17:02)
[2017-05-17 19:20] VITALS: BP 120/72
[2017-05-17] MEDS: ALPRAZolam 0.25 MG (XANAX) TAB PO PRN (19:55)
[2017-05-18 00:26] VITALS: BP 135/76
[2017-05-18] MEDS: cefTRIAXone INJECTION 1,000 MG in NS (IVPB) 50 ML IV SCH (01:33)
[2017-05-18] MEDS: AA 4.25% W/LYTES IN D5W IV SOL 1,000 ML IV SCH (03:32)
[2017-05-18 04:16] VITALS: BP 137/65
[2017-05-18] MEDS: LEVOTHYROXINE 50 MCG (LEVOTHROID) TAB PO SCH (06:13)
[2017-05-18] MEDS: PANTOPRAZOLE 20 MG TABLET (PROTONIX) PO SCH (06:13)
[2017-05-18 08:26] VITALS: BP 106/55
[2017-05-18] MEDS ORDERED: NON-FORMULARY MEDICATION 1 EA EA (Naloxegol Oxalate (Movantik) 25 MG) PO SCH (09:00)
--- NOTE | 2017-05-18 09:02 | Progress Note (SOAP) ---
Subjective Date Seen by Provider: May 18, 2017 Time Seen by Provider: 09:15 Subjective/Events-last exam PT REPORTS THAT SHE IS FEELING ABOUT THE SAME TODAY. SHE REPORTS THAT SHE IS HAVING PERSISTENT ABDOMINAL PAIN, SLIGHT NAUSEA. STILL IN TOO MUCH PAIN TO MOVE MUCH, SHE DENIES DIZZINESS, HEADACHE, FEVER. Review of Systems General: Fatigue HEENT: No Head Aches Pulmonary: Dyspnea, No Cough Cardiovascular: No: Chest Pain Gastrointestinal: Nausea, Abdominal Pain Musculoskeletal: back pain Neurological: Weakness Objective Exam Vital Signs Date Time Temp Pulse Resp B/P (MAP) Pulse Ox O2 Delivery O2 Flow Rate FiO2 05/18/17 08:26 98.1 95 18 106/55 95 Nasal Cannula 3.00 05/18/17 07:30 Nasal Cannula 3.00 05/18/17 04:16 98.0 88 18 137/65 98 Nasal Cannula 3.00 05/18/17 00:26 98.4 89 18 135/76 98 Nasal Cannula 3.00 05/17/17 20:34 Nasal Cannula 3.00 05/17/17 19:20 96.8 90 20 120/72 98 Nasal Cannula 3.00 05/17/17 16:00 98.7 88 18 123/64 98 Nasal Cannula 3.00 05/17/17 12:00 96.7 88 16 123/64 98 Nasal Cannula 3.00 Capillary Refill : Less Than 3 SecondsLess Than 3 Seconds General Appearance: WD/WN, Mild Distress HEENT: PERRL/EOMI Neck: Supple Respiratory: Chest Non Tender, Lungs Clear Cardiovascular: Regular Rate, Rhythm Gastrointestinal: soft, tenderness Extremity: Normal Capillary Refill Neurologic/Psychiatric: Alert, Oriented x3, Normal Mood/Affect Skin: Warm/Dry Lymphatic: No Adenopathy Results Lab Microbiology 05/16/17 Blood Culture - Preliminary, Resulted No growth 05/16/17 Urine Culture - Preliminary, Resulted Assessment/Plan Assessment/Plan Assess & Plan/Chief Complaint SEVERELY ELEVATED LIVER ENZYMES TRANSAMINITIS CONFUSION WEAKNESS UNCONTROLLED PAIN SACRAL FRACTURE HYPONATREMIA NAUSEA SEVERELY ELEVATED LIVER ENZYMES - TRANSAMINITIS - PT ADMITTED TO THE HOSPITAL FOR IV FLUIDS, SHE NECESSITATED ADMISSION DUE TO HER INABILITY TO KEEP DOWN FLUIDS TO ALLOW FOR IMPROVEMENT IN HER LIVER ENZYMES. HER LIVER ENZYMES DID NOT IMPROVE SIGNIFICANTLY DESPITE AGGRESSIVE FLUIDS - WILL CHANGE FLUIDS TO NORMAL SALINE DUE TO HER ELEVATED ELECTROLYTES. WAITING ON LFT'S TODAY. CONFUSION AND WEAKNESS - IMPROVED FROM ADMISSION, BUT STILL QUITE WEAK. WILL ORDER PHYSICAL THERAPY. UNCONTROLLED PAIN DUE TO SACRAL FRACTURE - IV PAIN MEDICATION FOR CONTROL OF SYMPTOMS. HYPONATREMIA - IV FLUIDS, MONITOR SODIUM LEVEL. NARCOTIC BOWEL - RELISTOR TODAY. NAUSEA - PRN IV ANTI-EMETICS. DVT PROPHYLAXSIS WITH SCDS GI PROPHYLAXIS WITH PPI Clinical Quality Measures DVT/VTE Risk/Contraindication: Risk Factor Score Per Nursin RFS Level Per Nursing on Admit: 4+=Very High LORI LIN MD May 18, 2017 09:02
[2017-05-18] MEDS: DOCUSATE SODIUM 100 MG (COLACE) CAP PO SCH (09:05)
[2017-05-18] MEDS: DIGOXIN 0.125 MG (LANOXIN) TAB PO SCH (09:05)
[2017-05-18] MEDS: LACTOBACILLUS Acidoph/Bulgar (LACTINEX/FLORANEX) TAB PO SCH ×2 (09:05→20:30)
[2017-05-18 09:58] LABS: ALANINE AMINOTRANSFERASE 301 U/L (0-55); ALBUMIN 3.3 GM/DL (3.2-4.5); ANION GAP 6 MMOL/L (5-14); ASPARTATE AMINO TRANSFERASE 156 U/L (5-34); BILIRUBIN,TOTAL 0.5 MG/DL (0.1-1.0); BLOOD UREA NITROGEN 30 MG/DL (7-18); BUN/CREATININE RATIO 47; CALCIUM 8.8 MG/DL (8.5-10.1); CARBON DIOXIDE 31 MMOL/L (21-32); CHLORIDE 95 MMOL/L (98-107); CREATININE SERUM 0.64 MG/DL (0.60-1.30); GFR ESTIMATED > 60; GLUCOSE 104 MG/DL (70-105); POTASSIUM 5.3 MMOL/L (3.6-5.0); SODIUM 132 MMOL/L (135-145); TOTAL PROTEIN 6.7 GM/DL (6.4-8.2)
[2017-05-18] MEDS ORDERED: METHYLNALTREXONE 12 MG/0.6 ML (RELISTOR) VIAL SQ ONE (10:00)
[2017-05-18] MEDS: NS IV 1000 ML 1,000 ML IV SCH (10:49)
[2017-05-18 12:00] VITALS: BP 128/60
[2017-05-18 16:00] VITALS: BP 113/56
[2017-05-18] MEDS: DOXEPIN 10 MG (SINEquan) CAP PO SCH (17:09)
[2017-05-18] MEDS: RIVAROXABAN 15 MG TABLET (XARELTO) PO SCH (17:09)
[2017-05-18] MEDS: ALPRAZolam 0.25 MG (XANAX) TAB PO PRN (20:30)
[2017-05-19] VITALS: BP 97/60
[2017-05-19] MEDS: cefTRIAXone INJECTION 1,000 MG in NS (IVPB) 50 ML IV SCH (01:44)
[2017-05-19] MEDS: NS IV 1000 ML 1,000 ML IV SCH (01:44)
[2017-05-19 06:09] LABS: MEAN PLATELET VOLUME 11.4 FL (7.4-10.4); RED BLOOD COUNT 3.43 10^6/uL (4.35-5.85); RED CELL DISTRIBUTION WIDTH 14.2 % (10.0-14.5); WHITE BLOOD COUNT 5.9 10^3/uL (4.3-11.0)
[2017-05-19] MEDS: PANTOPRAZOLE 20 MG TABLET (PROTONIX) PO SCH (06:16)
[2017-05-19] MEDS: LEVOTHYROXINE 50 MCG (LEVOTHROID) TAB PO SCH (06:16)
[2017-05-19 06:32] LABS: ALANINE AMINOTRANSFERASE 203 U/L (0-55); ALBUMIN 2.8 GM/DL (3.2-4.5); ANION GAP 7 MMOL/L (5-14); ASPARTATE AMINO TRANSFERASE 87 U/L (5-34); BILIRUBIN,TOTAL 0.3 MG/DL (0.1-1.0); BLOOD UREA NITROGEN 18 MG/DL (7-18); BUN/CREATININE RATIO 31; CALCIUM 8.4 MG/DL (8.5-10.1); CARBON DIOXIDE 29 MMOL/L (21-32); CHLORIDE 98 MMOL/L (98-107); CREATININE SERUM 0.58 MG/DL (0.60-1.30); GFR ESTIMATED > 60; GLUCOSE 86 MG/DL (70-105); POTASSIUM 4.3 MMOL/L (3.6-5.0); SODIUM 134 MMOL/L (135-145); TOTAL PROTEIN 5.6 GM/DL (6.4-8.2)
[2017-05-19 08:00] VITALS: BP 115/70
[2017-05-19] MEDS ORDERED: ESTRADIOL VAGINAL CREAM 42.5 GM (ESTRACE) VG SCH (09:00)
[2017-05-19] MEDS: LACTOBACILLUS Acidoph/Bulgar (LACTINEX/FLORANEX) TAB PO SCH ×2 (09:18→21:21)
[2017-05-19] MEDS: DIGOXIN 0.125 MG (LANOXIN) TAB PO SCH (09:18)
[2017-05-19] MEDS: DOCUSATE SODIUM 100 MG (COLACE) CAP PO SCH (09:18)
--- NOTE | 2017-05-19 12:54 | Physical Therapy Evaluation ---
PT Evaluation-General Medical Diagnosis Admission Date May 17, 2017 at 09:39 Medical Diagnosis: weakness Onset Date: May 18, 2017 Therapy Diagnosis Therapy Diagnosis: difficulty walking Height/Weight Height (Feet): 4 Height (Inches): 11.00 Weight (Pounds): 114 Weight (Ounces): 1.0 Precautions Precautions/Isolations: Fall Prevention, Standard Precautions, Suicide Referral Physician: Shonda Reason for Referral: Evaluation/Treatment Social History Home: Assisted Prior/Core FIM Prior Level of Function Functional [place] Measure 0=Not Assessed/NA 4=Minimal Assistance 1=Total Assistance 5=Supervision or Setup 2=Maximal Assistance 6=Modified [place] 3=Moderate Assistance 7=Complete [place] Bed Mobility: 6 Transfers (B,C,W/C) (FIM): 6 Gait: 6 PT Evaluation-Current Subjective States that her tailbone is really hurting and is unable to do much. Pain Numeric Pain Scale: 8 Objective Patient Orientation: Person, Place, Time ROM/Strength ROM Upper Extremities WFL ROM Lower Extremities WFL Strenght Lower Extremities 3+/5 Transfers Functional [place] Measure 0=Not Assessed/NA 4=Minimal Assistance 1=Total Assistance 5=Supervision or Setup 2=Maximal Assistance 6=Modified [place] 3=Moderate Assistance 7=Complete [place] Transfers (B, C, W/C) (FIM): 4 Scootin Rollin Supine to/from Sit: 4 Sit to/from Stand: 4 Gait Mode of Locomotion: Walk Anticipated Mode of Locomotion: Walk Gait (FIM): 0 Distance (FIM): 0=does not occure Distance: 0 Comments/Gait Description patient unable to take steps. She needed moderate assistance for standing. Balance Sitting Static: Fair Sitting Dynamic: Fair Standing Static: Poor Standing Dynamic: Poor Assessment/Needs 87 y.o. female with a diagnosis of weakness. She suffered a recent sacral fracture and is having significant functional mobility limitations. She should do well with skilled therapy as the pain level decreases. Rehab Potential: Good PT Short Term Goals Short Term Goals Time Frame: May 26, 2017 Transfers (B,C,W/C) (FIM): 5 Gait (FIM): 2 Distance (FIM): 2=270-65 ft Gait Distance Comment: 50' Gait Level of Assist: 5 Gait Assistive Device: FWW PT Care Home Goals Care Home Goals PT Care Home Goals Time Frame: Jun 02, 2017 Transfers (B,C,W/C) (FIM): 6 Gait (FIM): 5 Gait distance (FIM): 3=150 ft Distance: 150' Gait Level of Assist: 5 Gait Assistive Device: FWW PT Plan Problem List Problem List: Activity Tolerance, Functional Strength, Safety, Balance, Gait, Transfer, Bed Mobility Treatment/Plan Treatment Plan: Continue Plan of Care Treatment Plan: Bed Mobility, Education, Functional Activity [place], Functional Strength, Gait, Safety, Therapeutic Exercise, Transfers Treatment Duration: Jun 02, 2017 Frequency: 6 times per week Estimated Hrs Per Day: .25 hour per day Patient and/or Family Agrees t: Yes Time/GCodes Time In: 1215 Time Out: 1230 Total Billed Treatment Time: 15 Total Billed Treatment 1, EV LISA GUTIERREZ PT May 19, 2017 12:54
--- NOTE | 2017-05-19 13:08 | Progress Note-Hospitalist ---
Progress Note Progress Notes/Assess & Plan Date Seen 05/19/17 Time Seen by Provider: 11:00 Diagonsis/Assessment & Plan Chart Review: No fever Vitals stable WBC 5.9 Hgb 10.3 AST/ALT 87/203 down from 574/524 All Cx no growth Patient Interview: Pt's daughter was visiting upon interview. Pt is unsure how well she is doing. Pt denies feeling nauseated, she states she is just feeling unwell Pt requested pain meds. Pt states she takes Oxycodone at home. Liver looks better and this was discussed Pt states that she lives at [facility] and sits up well there, pt states she likes to ambulate with her walker there. Pt states she will be able to sit up in a chair but would like her daughter to get her bathrobe. Physical exam stable. Lungs sound perfect. Pt states she had a big BM yesterday Pt was assured that Dr. Lemus will return on Sunday and she will assume care at that point Pt denies having Lerma at [facility] and okay with it's removal as long as she does not have to keep getting up to use the bathroom. Pt was encouraged to eat and take in plenty of fluids so IVF could be DC - once IVF has been DC, she will not need to urinate as much. AFVSS, Pleasant, chronically ill RRR, CTAB no rales noted No edema Laboratory Tests 05/19/17 05:26 Assessment: Elevated LFT's Presumed UTI but UCx NGTD so will DC abx Chronic pain Chronic debility Anemia of chronic disease Plan: Pain meds DC IVF AM labs PT order and get OOB DC Rocephin since Cx negative DC Lerma to get OOB easier Scribed by Melani Ford under the direct supervision of Dr. Schmidt. MITESH SCHMIDT DO May 19, 2017 13:08
[2017-05-19 15:37] VITALS: BP 92/57
[2017-05-19] MEDS: RIVAROXABAN 15 MG TABLET (XARELTO) PO SCH (17:18)
[2017-05-19] MEDS: DOXEPIN 10 MG (SINEquan) CAP PO SCH (17:18)
[2017-05-20] VITALS: BP 128/64
[2017-05-20] MEDS: PANTOPRAZOLE 20 MG TABLET (PROTONIX) PO SCH (06:43)
[2017-05-20] MEDS: LEVOTHYROXINE 50 MCG (LEVOTHROID) TAB PO SCH (06:43)
[2017-05-20] MEDS ORDERED: INFLUENZA TRIvalent 2017-2018 0.5 ML/45 MCG SYR IM ONE (07:30)
[2017-05-20 07:33] LABS: MEAN PLATELET VOLUME 10.6 FL (7.4-10.4); RED BLOOD COUNT 3.59 10^6/uL (4.35-5.85); RED CELL DISTRIBUTION WIDTH 14.2 % (10.0-14.5); WHITE BLOOD COUNT 5.8 10^3/uL (4.3-11.0)
[2017-05-20 07:53] LABS: ALANINE AMINOTRANSFERASE 157 U/L (0-55); ALBUMIN 2.9 GM/DL (3.2-4.5); ANION GAP 5 MMOL/L (5-14); ASPARTATE AMINO TRANSFERASE 57 U/L (5-34); BILIRUBIN,TOTAL 0.5 MG/DL (0.1-1.0); BLOOD UREA NITROGEN 10 MG/DL (7-18); BUN/CREATININE RATIO 17; CALCIUM 8.8 MG/DL (8.5-10.1); CARBON DIOXIDE 32 MMOL/L (21-32); CHLORIDE 98 MMOL/L (98-107); CREATININE SERUM 0.59 MG/DL (0.60-1.30); GFR ESTIMATED > 60; GLUCOSE 92 MG/DL (70-105); POTASSIUM 4.1 MMOL/L (3.6-5.0); SODIUM 135 MMOL/L (135-145)
[2017-05-20] MEDS: DIGOXIN 0.125 MG (LANOXIN) TAB PO SCH (07:53)
[2017-05-20] MEDS: LACTOBACILLUS Acidoph/Bulgar (LACTINEX/FLORANEX) TAB PO SCH ×2 (07:53→20:18)
[2017-05-20] MEDS: DOCUSATE SODIUM 100 MG (COLACE) CAP PO SCH (07:53)
[2017-05-20] MEDS: FENTANYL 100 MCG PATCH REMOVAL TP SCH (08:14)
[2017-05-20] MEDS: fentaNYL PATCH 25 MCG (DURAGESIC) TD SCH (08:14)
[2017-05-20] MEDS: fentaNYL PATCH 100 MCG (DURAGESIC) TD SCH (08:15)
[2017-05-20] MEDS: FENTANYL 25 MCG PATCH REMOVAL TP SCH (08:15)
[2017-05-20 08:55] VITALS: BP 125/67
[2017-05-20] MEDS ORDERED: METHYLNALTREXONE 12 MG/0.6 ML (RELISTOR) VIAL SQ SCH (09:00)
--- NOTE | 2017-05-20 12:49 | Progress Note-Hospitalist ---
Progress Note Progress Notes/Assess & Plan Date Seen 05/20/17 Time Seen by Provider: 12:00 Diagonsis/Assessment & Plan Chart Review: CMP and CBC good AST/ALT 57/157 clerk guide: Pt is sitting up in chair, she has eaten and has had a BM, but she has not been eating well since she needs her esophagus "stretched" again. Pt is off abx and off O2, but pt confirms using O2 at home periodically Patient Interview: Pt states she is doing okay except she has had to get up for several BMs Labs discussed and look good today. Physical exam stable. Pt denies needing anything and feels well taken care of Pt was informed that am labs will be drawn and Dr. Lemus will return tomorrow. Pt states she would like to stay here rather than return to the [place] AFVSS, Pleasant, chronically ill, sitting in chair RRR, CTAB no rales noted No edema Laboratory Tests 05/20/17 07:18 Assessment: Elevated LFT's now near normal Presumed UTI but UCx NGTD so DC'ed abx yesterday Chronic pain Chronic debility Anemia of chronic disease Plan: Pain meds DC IVF AM labs PT order and get OOB DC'ed Rocephin since Cx negative DC'ed Lerma to get OOB easier Scribed by Melani Ford under the direct supervision of Dr. Schmidt. MITESH SCHMIDT DO May 20, 2017 12:49
[2017-05-20] MEDS: ALPRAZolam 0.25 MG (XANAX) TAB PO PRN ×2 (12:53→20:18)
[2017-05-20 15:56] VITALS: BP 117/60
[2017-05-20] MEDS: DOXEPIN 10 MG (SINEquan) CAP PO SCH (16:55)
[2017-05-20] MEDS: RIVAROXABAN 15 MG TABLET (XARELTO) PO SCH (16:55)
[2017-05-21] VITALS: BP 116/65
[2017-05-21] MEDS: PANTOPRAZOLE 20 MG TABLET (PROTONIX) PO SCH (06:02)
[2017-05-21] MEDS: LEVOTHYROXINE 50 MCG (LEVOTHROID) TAB PO SCH (06:02)
[2017-05-21 06:19] LABS: BASOPHILS % (AUTO) 1 % (0-10); EOSINOPHILS # (AUTO) 0.6 10^3/uL (0.0-0.3); EOSINOPHILS % (AUTO) 12 % (0-10); LYMPHOCYTES # (AUTO) 1.5 X 10^3 (1.0-4.0); LYMPHOCYTES % (AUTO) 30 % (12-44); MEAN CORPUSCULAR HEMOGLOBIN 30 PG (25-34); MEAN CORPUSCULAR HGB CONC 31 G/DL (32-36); MEAN CORPUSCULAR VOLUME 97 FL (80-99); MONOCYTES # (AUTO) 0.7 X 10^3 (0.0-1.0); MONOCYTES % (AUTO) 14 % (0-12); NEUTROPHILS # (AUTO) 2.2 X 10^3 (1.8-7.8); NEUTROPHILS % (AUTO) 44 % (42-75); PLATELET COUNT 232 10^3/uL (130-400); RED CELL DISTRIBUTION WIDTH 14.1 % (10.0-14.5)
[2017-05-21 06:47] LABS: ALANINE AMINOTRANSFERASE 120 U/L (0-55); ALBUMIN 2.9 GM/DL (3.2-4.5); ANION GAP 6 MMOL/L (5-14); ASPARTATE AMINO TRANSFERASE 38 U/L (5-34); BILIRUBIN,TOTAL 0.5 MG/DL (0.1-1.0); BLOOD UREA NITROGEN 14 MG/DL (7-18); BUN/CREATININE RATIO 24; CALCIUM 8.9 MG/DL (8.5-10.1); CARBON DIOXIDE 32 MMOL/L (21-32); CHLORIDE 98 MMOL/L (98-107); CREATININE SERUM 0.58 MG/DL (0.60-1.30); GFR ESTIMATED > 60; GLUCOSE 82 MG/DL (70-105); POTASSIUM 4.2 MMOL/L (3.6-5.0); SODIUM 136 MMOL/L (135-145); TOTAL PROTEIN 5.9 GM/DL (6.4-8.2)
[2017-05-21 07:50] VITALS: BP 110/67
[2017-05-21] MEDS ORDERED: INFLUENZA TRIvalent 2017-2018 0.5 ML/45 MCG SYR IM ONE (09:14)
[2017-05-21] MEDS: DOCUSATE SODIUM 100 MG (COLACE) CAP PO SCH (09:26)
[2017-05-21] MEDS: DIGOXIN 0.125 MG (LANOXIN) TAB PO SCH (09:26)
[2017-05-21] MEDS: LACTOBACILLUS Acidoph/Bulgar (LACTINEX/FLORANEX) TAB PO SCH (09:26)
[2017-05-21] MEDS ORDERED: RIVA15TA PO (09:30)
--- NOTE | 2017-05-21 09:36 | Discharge Inst-Skilled Nursing ---
Discharge Inst-Skilled NF Patient Instructions Patient Problems: SEVERELY ELEVATED LIVER ENZYMES TRANSAMINITIS CONFUSION WEAKNESS UNCONTROLLED PAIN SACRAL FRACTURE HYPONATREMIA NAUSEA Goal: IMPROVED PAIN CONTROL, IMPROVED GI SYMPTOMS Consult/Follow Up/Orders Follow Up Appt.: 1 WEEK WITH [facility] Skilled NF Admit to: [facility] Certification (SNF) I certify that SNF services are required to be given on an inpatient basis because of the above named patient's need for shelter care on a continuing basis for the conditions(s) for which he/she was receiving inpatient hospital services prior to his/her transfer to the [facility] Facility Order: Nursing Services, Physical Therapy-Evaluate & Treat, Other Discharge Diet: Regular Diet Daily Activity as Tolerated: Yes New & Resume Previous Orders New & Resume Previous Orders RESUME PREVIOUS ORDERS Lori Lemus May 21, 2017 09:34 Medication List: Active Scripts Active Xarelto (Rivaroxaban) 15 Mg Tablet 15 Mg PO DAILY@1700 30 Days Reported Duragesic Patch 25MCG (Fentanyl) 1 Each Patch.td72 25 Mcg TD Q72H USES WITH 100MCG PATCH Estrace Cream (Estradiol) 42.5 Gm Cream.appl 1 Gm VG SA Oxycodone HCl 5 Mg Tablet 30 Mg PO Q4H PRN TAKES 6 (5MG) TABLETS Oxycodone HCl 5 Mg Tablet 15 Mg PO Q4H PRN TAKES 3 (5MG) TABLETS Anti-Diarrheal (Loperamide HCl) 2 Mg Tablet 2-4 Mg PO DAILY PRN TAKES 1-2 OF A (2 MG) TABLET Polyethylene Glycol 3350 255 Gm Powder 17 Gm PO Q48H PRN Mylanta Suspension (Al Hydrox/Mg Hydrox/Simethicone) 30 Ml Oral.susp 30 Ml PO Q4H PRN Docusate Sodium 100 Mg Capsule 100 Mg PO DAILY PRN Ondansetron HCl 4 Mg Tablet 4 Mg PO Q6H PRN Alprazolam 0.25 Mg Tablet 0.25 Mg PO TID PRN Clindamycin HCl 150 Mg Capsule 600 Mg PO UD TAKES 4 (150 MG) CAPSULES 1 HOUR PRIOR TO DENTAL APPOINTMENTS Doxepin HCl 10 Mg Capsule 10 Mg PO 1800 Xarelto (Rivaroxaban) 20 Mg Tablet 20 Mg PO 1800 Movantik (Naloxegol Oxalate) 25 Mg Tablet 25 Mg PO DAILY Docusate Sodium 100 Mg Capsule 100 Mg PO DAILY Oyster Shell Calcium (Calcium Carbonate) 500 Mg Tablet 1,000 Mg PO DAILY Loratadine 10 Mg Tablet 10 Mg PO DAILY Osmolite 1 Jose Raul (Lactose-Reduced Food) 237 Ml Liquid 237 Ml PO BID Culturelle (Lactobacillus Rhamnosus GG) 1 Each Capsule 1 Cap PO BID Ensure Plus (Lactose-Reduced Food) 237 Ml Liquid 237 Ml PO BID Esomeprazole Magnesium 20 Mg Capsule.dr 20 Mg PO DAILY Milk of Magnesia (Magnesium Hydroxide) 400 Mg/5 Ml Oral.susp 30 Ml PO DAILY PRN Multivitamins (Multivitamin) 1 Each Tablet 1 Tab PO DAILY Acetaminophen 325 Mg Tablet 650 Mg PO Q4H PRN TAKES 2 (325 MG) TABLETS / MAY ALSO TAKE FOR ELEVATED TEMPERATURE Aspirin EC (Aspirin) 81 Mg Tablet.dr 81 Mg PO DAILY Fentanyl Patch 100 MCG (Fentanyl) 1 Each Patch.td72 100 Mcg TD Q72H USES WITH 25MCG PATCH Digoxin 125 Mcg Tablet 125 Mcg PO DAILY Vitamin D3 (Cholecalciferol (Vitamin D3)) 1,000 Unit Tablet 1,000 Unit PO DAILY Bisacodyl 10 Mg Supp.rect 10 Mg RC DAILY PRN Citalopram HBr (Citalopram Hydrobromide) 20 Mg Tablet 20 Mg PO DAILY Levothyroxine Sodium 50 Mcg Tablet 50 Mcg PO DAILY Lab results: Laboratory Tests Test 05/21/17 05:44 Range/Units White Blood Count 5.0 4.3-11.0 10^3/uL Red Blood Count 3.50 L 4.35-5.85 10^6/uL Hemoglobin 10.4 L 11.5-16.0 G/DL Hematocrit 34 L 35-52 % Mean Corpuscular Volume 97 80-99 FL Mean Corpuscular Hemoglobin 30 25-34 PG Mean Corpuscular Hemoglobin Concent 31 L 32-36 G/DL Red Cell Distribution Width 14.1 10.0-14.5 % Platelet Count 232 130-400 10^3/uL Mean Platelet Volume 11.0 H 7.4-10.4 FL Neutrophils (%) (Auto) 44 42-75 % Lymphocytes (%) (Auto) 30 12-44 % Monocytes (%) (Auto) 14 H 0-12 % Eosinophils (%) (Auto) 12 H 0-10 % Basophils (%) (Auto) 1 0-10 % Neutrophils # (Auto) 2.2 1.8-7.8 X 10^3 Lymphocytes # (Auto) 1.5 1.0-4.0 X 10^3 Monocytes # (Auto) 0.7 0.0-1.0 X 10^3 Eosinophils # (Auto) 0.6 H 0.0-0.3 10^3/uL Basophils # (Auto) 0.0 0.0-0.1 10^3/uL Sodium Level 136 135-145 MMOL/L Potassium Level 4.2 3.6-5.0 MMOL/L Chloride Level 98 98-107 MMOL/L Carbon Dioxide Level 32 21-32 MMOL/L Anion Gap 6 5-14 MMOL/L Blood Urea Nitrogen 14 7-18 MG/DL Creatinine 0.58 L 0.60-1.30 MG/DL Estimat Glomerular Filtration Rate > 60 BUN/Creatinine Ratio 24 Glucose Level 82 70-105 MG/DL Calcium Level 8.9 8.5-10.1 MG/DL Total Bilirubin 0.5 0.1-1.0 MG/DL Aspartate Amino Transf (AST/SGOT) 38 H 5-34 U/L Alanine Aminotransferase (ALT/SGPT) 120 H 0-55 U/L Alkaline Phosphatase 45 40-136 U/L Total Protein 5.9 L 6.4-8.2 GM/DL Albumin 2.9 L 3.2-4.5 GM/DL My orders: Orders - LORI LEMUS MD Influenza Trivalent [phone] (Afluria (05/21/17 09:14) Attending Discharge (05/21/17 09:28) LORI LEMUS MD May 21, 2017 09:36
--- NOTE | 2017-05-21 09:38 | Discharge Summary ---
Diagnosis/Chief Complaint Date of Admission May 17, 2017 at 09:39 Date of Discharge Discharge Date: May 21, 2017 Discharge Time: 10:30 Admission Diagnosis Admission Diagnosis SEVERELY ELEVATED LIVER ENZYMES TRANSAMINITIS CONFUSION WEAKNESS UNCONTROLLED PAIN SACRAL FRACTURE HYPONATREMIA NAUSEA Discharge Diagnosis SEVERELY ELEVATED LIVER ENZYMES TRANSAMINITIS CONFUSION WEAKNESS UNCONTROLLED PAIN SACRAL FRACTURE HYPONATREMIA NAUSEA Reason Hospital Visit PT IS AN 87 Y/O FEMALE WHO IS KNOWN TO ME FROM CLINIC. SHE PRESENTED TO THE EMERGENCY DEPARTMENT WITH CONFUSION THAT HAD STARTED OVER SEVERAL HOURS PRIOR TO HER ADMISSION. WHILE AT THE ALF SHE HAD BEEN INCREASINGLY FATIGUED , HAD NOT RECEIVED ANY OF HER USUAL PAIN MEDICATION DURING THE DAY DUE TO HER SOMNOLENCE. HER NURSE AT THE FACILITY NOTED A BOTTLE OF TYLENOL HIDDEN UNDER HER PILLOW. PT COMPLAINS OF PAIN IN HER LOW BACK, NAUSEA, CONSTIPATION. Discharge Summary Discharge Physical Examination Allergies: Coded Allergies: penicillin G (Verified Allergy, Severe, THROAT SWELLED, COULDN'T BREATHE, 03/18/07) Sulfa (Sulfonamide Antibiotics) (Verified Allergy, Unknown, 04/16/07) hydrocodone bit (Verified Allergy, Unknown, 07/14/14) morphine (Verified Allergy, Unknown, 09/17/06) Vitals & I&Os Vital Signs Date Time Temp Pulse Resp B/P (MAP) Pulse Ox O2 Delivery O2 Flow Rate FiO2 05/21/17 07:50 96.2 79 18 110/67 98 Nasal Cannula 2.00 General Appearance: Alert, Oriented X3, Cooperative HEENT: Atraumatic, PERRLA Respiratory: Clear to Auscultation, Normal Air Movement Cardiovascular: Regular Rate Abdominal: Normal Bowel Sounds, Soft, No Tenderness Extremities: No Clubbing, No Cyanosis Skin: No Rashes Neuro: Cranial Nerves 3-12 NL Psych/Mental Status: Mental Status NL, Mood NL Hospital Course SEVERELY ELEVATED LIVER ENZYMES TRANSAMINITIS CONFUSION WEAKNESS UNCONTROLLED PAIN SACRAL FRACTURE HYPONATREMIA NAUSEA SEVERELY ELEVATED LIVER ENZYMES - TRANSAMINITIS - PT ADMITTED TO THE HOSPITAL FOR IV FLUIDS, SHE NECESSITATED ADMISSION DUE TO HER INABILITY TO KEEP DOWN FLUIDS TO ALLOW FOR IMPROVEMENT IN HER LIVER ENZYMES. HER LIVER ENZYMES DID NOT IMPROVE SIGNIFICANTLY DESPITE AGGRESSIVE FLUIDS - IMPROVING ELECTROLYTES AND IMPROVED LIVER ENZYMES - MONITOR LABS AT ALF CONFUSION AND WEAKNESS - IMPROVED FROM ADMISSION,CONTINUE WITH PHYSICAL THERAPY AT ALF UNCONTROLLED PAIN DUE TO SACRAL FRACTURE - RESUMED HOME MEDICATIONS. HYPONATREMIA -RESOLVED WITH IV FLUIDS. NARCOTIC BOWEL - RELISTOR GIVEN IN HOSPITAL - [place] TO BE RESTARTED AT ALF NAUSEA - PRN IV ANTI-EMETICS. DVT PROPHYLAXSIS WITH SCDS GI PROPHYLAXIS WITH PPI Pending Labs Laboratory Tests 05/21/17 05:44: White Blood Count 5.0, Red Blood Count 3.50, Hemoglobin 10.4, Hematocrit 34, Mean Corpuscular Volume 97, Mean Corpuscular Hemoglobin 30, Mean Corpuscular Hemoglobin Concent 31, Red Cell Distribution Width 14.1, Platelet Count 232, Mean Platelet Volume 11.0, Neutrophils (%) (Auto) 44, Lymphocytes (%) (Auto) 30 , Monocytes (%) (Auto) 14, Eosinophils (%) (Auto) 12, Basophils (%) (Auto) 1, Neutrophils # (Auto) 2.2, Lymphocytes # (Auto) 1.5, Monocytes # (Auto) 0.7, Eosinophils # (Auto) 0.6, Basophils # (Auto) 0.0, Sodium Level 136, Potassium Level 4.2, Chloride Level 98, Carbon Dioxide Level 32, Anion Gap 6, Blood Urea Nitrogen 14, Creatinine 0.58, Estimat Glomerular Filtration Rate > 60, BUN/ Creatinine Ratio 24, Glucose Level 82, Calcium Level 8.9, Total Bilirubin 0.5, Aspartate Amino Transf (AST/SGOT) 38, Alanine Aminotransferase (ALT/SGPT) 120, Alkaline Phosphatase 45, Total Protein 5.9, Albumin 2.9 Discharge Condition at discharge IMPROVING Instructions to patient/family Please see electronic discharge instructions given to patient. Discharge Medications Reviewed and agree with Discharge Medication list on patient's Discharge Instruction sheet Clinical Quality Measures DVT/VTE Risk/Contraindication: Risk Factor Score Per Nursin RFS Level Per Nursing on Admit: 4+=Very High LORI LIN MD May 21, 2017 09:38
--- NOTE | 2017-05-21 10:26 | Physical Therapy Daily Note ---
PT Daily Note-Current Subjective Patient agrees to PT. Pain Numeric Pain Scale: 0-No Pain Location: No Pain Reported Mental Status Patient Orientation: Normal For Age Attachments: Oxygen Transfers Functional [place] Measure 0=Not Assessed/NA 4=Minimal Assistance 1=Total Assistance 5=Supervision or Setup 2=Maximal Assistance 6=Modified [place] 3=Moderate Assistance 7=Complete IndependenceIRFPAI Quality Coding Scale 6 Independent with activity with or without an assistive device 5 Patient requires set up or clean up by helper. Patient completes activity by themselves 4 Supervision or touching assist (CGA). [place] provide cues , steadying assist 3 The helper provides less than half the effort to complete the activity 2 The helper provides more than half the effort to complete the activity 1 Dependent. The helper does all the effort to complete an activity 7 Patient refused to complete or attempt activity 9 The patient did not perform the activity before the current illness or injury 88 Not attempted due to Medical conditions or safety concerns Transfers (B, C, W/C) (FIM): 4 Scootin Rollin Supine to/from Sit: 5 Sit to/from Stand: 4 Bed to/from Chair: 4 Gait Training Gait (FIM): 4 Distance (FIM): 3=150 ft Distance: 150' Gait Level of Assist: 4 Gait Persons Needed: 1 Gait Assistive Device: FWW kyphotic posture; steady gait sequence Assessment Current Status: Excellent Progress Patient to dismiss to NH on this date. PT Short Term Goals Short Term Goals Time Frame: May 26, 2017 Transfers (B,C,W/C) (FIM): 5 Gait (FIM): 2 Distance (FIM): 3=251-75 ft Gait Distance Comment: 50' Gait Level of Assist: 5 Gait Assistive Device: FWW PT Detention Goals [place] Analyst Goals PT Detention Goals Time Frame: Jun 02, 2017 Transfers (B,C,W/C) (FIM): 6 Gait (FIM): 5 Gait distance (FIM): 3=150 ft Distance: 150' Gait Level of Assist: 5 Gait Assistive Device: FWW PT Plan Treatment/Plan Treatment Plan: Discontinue PT Treatment Plan: Bed Mobility, Education, Functional Activity [place], Functional Strength, Gait, Safety, Therapeutic Exercise, Transfers Treatment Duration: Jun 02, 2017 Frequency: 6 times per week Estimated Hrs Per Day: .25 hour per day Patient and/or Family Agrees t: Yes Time/GCodes Time In: 905 Time Out: 914 Total Billed Treatment Time: 14 Total Billed Treatment 1 visit GT 14 min KATINA FRANCO PT May 21, 2017 10:26
--- NOTE | 2017-05-23 07:40 | Physician Query Clarification ---
PQ-Link Manifestation-Etiology Admission/Discharge Admission Date: May 17, 2017 at 09:39 Discharge Date: May 21, 2017 at 12:45 The medical record reflects the following clinical scenario: History/Risk Factors: Altered mental status/somnolence/nausea Bottle of Tylenol found under her pillow at longterm. Clinical Findings: AST 574, ALT 524,Transaminitis, BUN 22, Sodium 134, Acetaminophen level <10 L Treatment: IV fluids and monitoring of severely elevated liver enzyme levels. Question: Can you specify the etiology of the severely elevated liver enzyme levels after study? Please document a response below PHYSICIAN RESPONSE Manifestation due to/assoic: Clinically undetermined In responding to this query, please exercise your independent professional judgment. The purpose of this communication is to more accurately reflect the complexity of your patients condition. The fact that a question is asked does not imply that any particular answer is desired or expected. Thank you for your timely response to this clarification. Requestors name: Marie Turner [facility] Phone # ext [phone] or [phone] THIS PHYSICIAN QUERY FORM IS A PERMANENT PART OF THE MEDICAL RECORD MARIE TURNER May 23, 2017 07:40 LORI LIN MD May 23, 2017 12:52
--- NOTE | 2017-05-23 08:02 | Physician Query Clarification ---
PQ-Uncertain Diagnosis Admission/Discharge Admission Date: May 17, 2017 at 09:39 Discharge Date: May 21, 2017 at 12:45 The medical record reflects the following clinical scenario: History/Risk Factors: Low back pain Clinical Findings: T 99.3,slightly cloudy urine, Ur Specific [place] 1.025, Urine protein 2+, Urine ketones 1+,Urine Leukocyte Esterase 1+, Urine RBC(Auto) 2+, Urine WBC 5-10 , Urine bacteria LARGE Urine Culture- No growth Treatment: Rocephin 1 g IV in ED, IV Ceftriaxone Sodium/Sodium Chloride Question: Is UTI a clinically valid diagnosis? UTI and presumed UTI was documented in the ED record by Dr. Andino and Dr. Merchant's progress notes with no further documentation in the medical record. Please document a response below. PHYSICIAN RESPONSE Diagnosis clinically valid: No, conditon ruled out In responding to this query, please exercise your independent professional judgment. The purpose of this communication is to more accurately reflect the complexity of your patients condition. The fact that a question is asked does not imply that any particular answer is desired or expected. Thank you for your timely response to this clarification. Requestors name: Marie Turner [facility] Phone # ext [phone] or [phone] THIS PHYSICIAN QUERY FORM IS A PERMANENT PART OF THE MEDICAL RECORD MARIE TURNER May 23, 2017 08:02 LORI LIN MD May 23, 2017 12:52
== END 2017-05-21 12:45 | DRG 948 ==
LOC: EDUNIT# 22:22 → ER 22:23 → 4TH 05-17 01:11 → UNDOADMOB 05-17 01:11 → 4TH 05-17 02:25 → OBSVTOIN 05-17 09:39 → INTOOBSV 05-17 09:39 → UNDODISIN 05-21 12:45
PROVIDERS: ADMIT Family Medicine; ATTEND Family Medicine
DX: T40.4X5A Adverse effect of other synthetic narcotics, initial encounter; I48.91 Unspecified atrial fibrillation; R05 Cough; M19.91 Primary osteoarthritis, unspecified site; Z89.421 Acquired absence of other right toe(s); Z86.718 Personal history of other venous thrombosis and embolism; E87.1 Hypo-osmolality and hyponatremia; H91.90 Unspecified hearing loss, unspecified ear; M54.5 Low back pain; R11.0 Nausea; R74.0 Nonspecific elevation of levels of transaminase and lactic acid dehydrogenase [LDH]; K21.9 Gastro-esophageal reflux disease without esophagitis; M80.08XA Age-related osteoporosis with current pathological fracture, vertebra(e), initial encounter for fracture; F32.9 Major depressive disorder, single episode, unspecified; R41.82 Altered mental status, unspecified; Z23 Encounter for immunization; R74.8 Abnormal levels of other serum enzymes; R40.0 Somnolence; D63.8 Anemia in other chronic diseases classified elsewhere; K59.03 Drug induced constipation
CPT/HCPCS: 36415; 51701; 71010; 80053; 80162; 80329; 81000; 82150; 83605; 83690; 85025; 85027; 85610; 85730; 87040; 87088; 96361; 96365; G0378

== ENCOUNTER 2017-11-16 09:11 | Emergency (ER) | payer MEDICARE, MEDICAID ==
[~2017-11-16] VITALS: Ht 152.4 cm; Wt 54.4 kg
[~2017-11-16 09:11] MED LIST changes: +FENT1PAT57 TD; +OXYC-529 PO; +RIVA15TA PO
--- OUTSIDE RECORDS SUMMARY | 2017-11-16 09:21 | XMS REPORT | CCD ---
Author Author [facility] Organization [facility] Address [address] [place] [address] Phone Care Team Providers Care Labor And Delivery Nurse Name Role Phone PP Unavailable CCM Unavailable Summary Purpose Interface Exchange Insurance Providers Payer name Policy type / Coverage type Covered green party ID Effective Begin Date Effective End Date WPS Medicare Part B Medicare Part B [id number] Unknown Unknown [facility] Medicare Part B [id number] Unknown Unknown [employer] - Medicare Part B [id number] Unknown Unknown Family history Father Diagnosis Age At Onset Depression Unknown Runs in the family Diagnosis Age At Onset Atrial fibrillation Unknown Brother Diagnosis Age At Onset Atrial fibrillation Unknown Social History Social History Element Codes Description Effective Dates Living arrangements Unknown Care Home VCV 01/19/2016 Employment Unknown Retired worked at the [employer] 07/26/[address]: 588296793 Never smoker but was exposed to smoke at work 07/26/2015 Marital status Unknown 02/08/2015 Number of children Unknown 6 02/08/2015 Allergies, Adverse Reactions, Alerts Allergies, Adverse Reactions, Alerts data not found Past Medical History Illness Codes Condition Status Onset Date Resolved Date Chronic atrial fibrillation ICD-9: 427.31 ICD-10: I48.2 Active 11/03/2015 Unknown Chronic pain syndrome ICD-9: 338.4 ICD-10: G89.4 Active 05/11/2017 Unknown Generalized anxiety disorder ICD-9: 300.00 ICD-10: F41.1 Active 09/14/2016 Unknown Gastro-esophageal reflux disease without esophagitis ICD-9: 530.81 ICD-10: K21.9 Active 06/12/2016 Unknown Low back pain ICD-9: 724.2 ICD-10: M54.5 Active 04/25/2016 Unknown Slow transit constipation ICD-9: 564.01 ICD-10: K59.01 Active 10/05/2016 Unknown Pain in thoracic spine ICD-9: 724.1 ICD-10: M54.6 Active 05/11/2017 Unknown Other chronic pain ICD -9: 338.29 ICD-10: G89.29 Active 05/02/2017 Unknown Diverticulum of esophagus, 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 Active 03/27/2017 Unknown Abnormal weight loss ICD-9: 783.21 ICD-10: R63.4 Active 02/26/2017 Unknown Dysphagia, pharyngoesophageal phase ICD-9: 787.22 ICD-10: R13.14 Active 06/12/2016 Unknown Primary osteoarthritis, unspecified site ICD-9: 715.90 ICD-10: M19.91 Active 10/19/2015 Unknown Seborrheic dermatitis, unspecified ICD-9: 690.10 ICD-10: L21.9 Active 02/26/2017 Unknown Postnasal drip ICD-9: 784.91 ICD-10: R09.82 Active 02/12/2017 Unknown Tinea barbae and tinea capitis ICD-9: 110.0 ICD-10: B35.0 Active 11/06/2016 Unknown Chronic idiopathic constipation ICD-9: 564.09 ICD-10: K59.04 Active 06/12/2016 Unknown Major depressive disorder, single episode, unspecified ICD-9: 311 ICD-10: F32.9 Active 11/03/2015 Unknown Shortness of breath ICD-9: 786.05 ICD-10: R06.02 Active 10/05/2016 Unknown Other fatigue ICD-9: 780.79 ICD-10: R53.83 Active 10/05/2016 Unknown Other malaise ICD-9: 780.79 ICD-10: R53.81 Active 10/05/2016 Unknown Pain in left shoulder ICD-9: 719.41 ICD-10: M25.512 Active 07/24/2016 Unknown Rash and other nonspecific skin eruption ICD-9: 782.1 ICD-10: R21 Active 07/24/2016 Unknown Hypothyroidism, unspecified ICD-9: 244.9 ICD-10: E03.9 Active 02/07/2015 Unknown Pain in right hip ICD- 9: 719.45 ICD-10: M25.551 Active 04/25/2016 Unknown Pain, unspecified ICD- 9: 780.96 ICD-10: R52 Active 02/02/2016 Unknown Unspecified fall, sequela ICD-9: E929.3 ICD-10: W19.XXXS Active 02/02/2016 Unknown Depression Unknown Active 11/04/2015 Unknown Dysphagia ICD-9: 787.20 Active 02/23/2015 Unknown DYSPHAGIA, OROPHARYNGEAL ICD-9: 787.22 Active 02/23/2015 Unknown Hypothryroidism Unknown Active 02/08/2015 Unknown Osteoarthritis Unknown Active 02/08/2015 Unknown A-fib ICD-9: 427.31 Active 02/07/2015 Unknown Hypothyroidism ICD-9: 244.9 Active 02/07/2015 Unknown Left wrist pain ICD-9 : 719.43 Active 02/07/2015 Unknown Osteoarthritis ICD-9: 715.90 Active 02/07/2015 Unknown URINARY FREQUENCY ICD- 9: 788.41 Active 02/07/2015 Unknown Problems Condition Codes Effective Dates Condition Status Chronic atrial fibrillation ICD-9: 427.31 ICD-10: I48.2 11/03/2015 Active Chronic pain syndrome ICD-9: 338.4 ICD-10: G89.4 05/11/2017 Active Generalized anxiety disorder ICD-9: 300.00 ICD-10: F41.1 09/14/2016 Active Gastro-esophageal reflux disease without esophagitis ICD-9: 530.81 ICD-10: K21.9 06/12/2016 Active Low back pain ICD-9: 724.2 ICD-10: M54.5 04/25/2016 Active Slow transit constipation ICD-9: 564.01 ICD-10: K59.01 10/05/2016 Active Pain in thoracic spine ICD-9: 724.1 ICD-10: M54.6 05/11/2017 Active Other chronic pain ICD -9: 338.29 ICD-10: G89.29 05/02/2017 Active Diverticulum of esophagus, 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 03/27/2017 Active Abnormal weight loss ICD-9: 783.21 ICD-10: R63.4 02/26/2017 Active Dysphagia, pharyngoesophageal phase ICD-9: 787.22 ICD-10: R13.14 06/12/2016 Active Primary osteoarthritis, unspecified site ICD-9: 715.90 ICD-10: M19.91 10/19/2015 Active Seborrheic dermatitis, unspecified ICD-9: 690.10 ICD-10: L21.9 02/26/2017 Active Postnasal drip ICD-9: 784.91 ICD-10: R09.82 02/12/2017 Active Tinea barbae and tinea capitis ICD-9: 110.0 ICD-10: B35.0 11/06/2016 Active Chronic idiopathic constipation ICD-9: 564.09 ICD-10: K59.04 06/12/2016 Active Major depressive disorder, single episode, unspecified ICD-9: 311 ICD-10: F32.9 11/03/2015 Active Shortness of breath ICD-9: 786.05 ICD-10: R06.02 10/05/2016 Active Other fatigue ICD-9: 780.79 ICD-10: R53.83 10/05/2016 Active Other malaise ICD-9: 780.79 ICD-10: R53.81 10/05/2016 Active Pain in left shoulder ICD-9: 719.41 ICD-10: M25.512 07/24/2016 Active Rash and other nonspecific skin eruption ICD-9: 782.1 ICD-10: R21 07/24/2016 Active Hypothyroidism, unspecified ICD-9: 244.9 ICD-10: E03.9 02/07/2015 Active Pain in right hip ICD- 9: 719.45 ICD-10: M25.551 04/25/2016 Active Pain, unspecified ICD- 9: 780.96 ICD-10: R52 02/02/2016 Active Unspecified fall, sequela ICD-9: E929.3 ICD-10: W19.XXXS 02/02/2016 Active Depression Unknown 11/04/2015 Active Dysphagia ICD-9: 787.20 02/23/2015 Active DYSPHAGIA, OROPHARYNGEAL ICD-9: 787.22 02/23/2015 Active Hypothryroidism Unknown 02/08/2015 Active Osteoarthritis Unknown 02/08/2015 Active A-fib ICD-9: 427.31 02/07/2015 Active Hypothyroidism ICD-9: 244.9 02/07/2015 Active Left wrist pain ICD-9 : 719.43 02/07/2015 Active Osteoarthritis ICD-9: 715.90 02/07/2015 Active URINARY FREQUENCY ICD- 9: 788.41 02/07/2015 Active Medications Medication Codes Instructions Start Date Stop Date Status Fill Instructions oxycodone 15 mg tablet RxNorm: 9071963 1-2 Tablet(s) PO Q4H as needed moderate or severe pain 09/06/2017 09/21/2017 Active Duragesic 50 mcg/hr transdermal patch RxNorm: 117575 1 Patch TD Q72H in addition to the 100mcg patch 08/15/2017 09/13/2017 Active Xanax 0.25 mg tablet RxNorm: 090895 1 Tablet(s) PO QHS 201612/07/2017 Active oxycodone 15 mg tablet RxNorm: 8563786 1-2 Tablet(s) PO Q4H as needed moderate or severe pain 08/08/2017 08/23/2017 Inactive Duragesic 50 mcg/hr transdermal patch RxNorm: 078739 1 Patch TD Q72H in addition to the 100mcg patch 07/31/2017 08/14/2017 Inactive Duragesic 100 mcg/hr transdermal patch RxNorm: 394908 1 Patch TD Q72H 07/16/2017 08/14/2017 Inactive oxycodone 15 mg tablet RxNorm: 4721054 1-2 Tablet(s) PO Q4H as needed moderate or severe pain 06/26/2017 07/11/2017 Inactive Xanax 0.25 mg tablet RxNorm: 622752 1 Tablet(s) PO BID 201608/09/2017 Inactive Miralax 17 gram oral powder packet RxNorm: 736275 17 Gram(s) PO every other day as needed constipation 05/28/2017 No Stop Date Active Nexium 20 mg capsule,delayed release RxNorm: 648593 1 Capsule(s) PO daily 05/28/2017 No Stop Date Active Duragesic 50 mcg/hr transdermal patch RxNorm: 364271 1 Patch TD Q72H in addition to the 100mcg patch 05/28/2017 06/26/2017 Inactive Duragesic 25 mcg/hr transdermal patch RxNorm: 902460 1 Patch TD Q72H . Use with 100 mcg patch 05/22/2017 05/27/2017 Inactive oxycodone 15 mg tablet RxNorm: 3846575 1-2 Tablet(s) PO Q4H as needed moderate or severe pain 05/22/2017 06/06/2017 Inactive Duragesic 100 mcg/hr transdermal patch RxNorm: 466731 1 Patch TD Q72H 05/22/2017 06/20/2017 Inactive Xanax 0.25 mg tablet RxNorm: 878414 1 Tablet(s) PO TID as needed anxiety 05/21/2017 06/25/2017 Inactive Duragesic 100 mcg/hr transdermal patch RxNorm: 534938 1 Patch TD Q72H 05/09/2017 05/21/2017 Inactive oxycodone 15 mg tablet RxNorm: 8540018 1 Tablet(s) PO Q6 201605/21/2017 Inactive Xanax 0.25 mg tablet RxNorm: 638295 1 Tablet(s) PO TID as needed 04/09/2017 No Stop Date Active Duragesic 100 mcg/hr transdermal patch RxNorm: 559719 1 Patch TD Q72H 04/03/2017 05/02/2017 Inactive oxycodone 15 mg tablet RxNorm: 6040974 1 Tablet(s) PO Q6 201604/24/2017 Inactive Duragesic 100 mcg/hr transdermal patch RxNorm: 546248 1 Patch TD Q72H 03/01/2017 03/30/2017 Inactive Voltaren 1 % topical gel RxNorm: 866674 4 Gram(s) TOP QID 02/2605/27/2017 Inactive oxycodone 15 mg tablet RxNorm: 3936281 1 Tablet(s) PO Q6 201603/23/2017 Inactive Duragesic 100 mcg/hr transdermal patch RxNorm: 625976 1 Patch TD Q72H 01/30/2017 02/28/2017 Inactive oxycodone 15 mg tablet RxNorm: 3360039 1 Tablet(s) PO Q6 201602/21/2017 Inactive oxycodone 15 mg tablet RxNorm: 7118213 1 Tablet(s) PO Q6 201601/23/2017 Inactive Duragesic 100 mcg/hr transdermal patch RxNorm: 720349 1 Patch TD Q72H 01/01/2017 01/29/2017 Inactive lubiprostone 24 mcg capsule RxNorm: 427049 1 Capsule(s) PO daily 12/22/2016 05/27/2017 Inactive Duragesic 100 mcg/hr transdermal patch RxNorm: 255093 1 Patch TD Q72H 12/08/2016 12/31/2016 Inactive oxycodone 15 mg tablet RxNorm: 2500838 1 Tablet(s) PO Q6 201612/26/2016 Inactive Nexium 20 mg capsule,delayed release RxNorm: 247117 1 Capsule(s) PO BID 11/23/2016 05/27/2017 Inactive Miralax 17 gram oral powder packet RxNorm: 903706 17 Gram(s) PO Q72H 11/23/2016 05/27/2017 Inactive Duragesic 100 mcg/hr transdermal patch RxNorm: 106261 1 Patch TD Q72H 11/16/2016 12/07/2016 Inactive ketoconazole 1 % shampoo RxNorm: 755962 1 Application TOP daily 11/15/2016 11/19/2016 Inactive Duragesic 100 mcg/hr transdermal patch RxNorm: 057657 1 Patch TD Q72H 10/16/2016 11/14/2016 Inactive oxycodone 15 mg tablet RxNorm: 7448647 1 Tablet(s) PO Q6 201611/01/2016 Inactive Xanax 0.25 mg tablet RxNorm: 731784 1 Tablet(s) PO TID as needed 09/21/2016 04/08/2017 Inactive Xanax 0.25 mg tablet RxNorm: 551798 1 Tablet(s) PO TID as needed anxiety 09/15/2016 10/14/2016 Inactive Xanax 0.25 mg tablet RxNorm: 801973 1 Tablet(s) PO TID as needed anxiety 09/15/2016 09/14/2016 Inactive Duragesic 100 mcg/hr transdermal patch RxNorm: 728420 1 Patch TD Q72H 09/13/2016 10/12/2016 Inactive oxycodone 15 mg tablet RxNorm: 0820853 1 Tablet(s) PO Q6 201508/30/2016 Inactive Duragesic 100 mcg/hr transdermal patch RxNorm: 645739 1 Patch TD Q72H 08/10/2016 09/08/2016 Inactive oxycodone 15 mg tablet RxNorm: 4465469 1 Tablet(s) PO Q6 201508/15/2016 Inactive oxycodone 15 mg tablet RxNorm: 1854810 1 Tablet(s) PO Q6 201508/06/2016 Inactive Duragesic 100 mcg/hr transdermal patch RxNorm: 974450 1 Patch TD Q72H 07/27/2016 08/09/2016 Inactive oxycodone 15 mg tablet RxNorm: 4509034 1 Tablet(s) PO Q6 201507/30/2016 Inactive Duragesic 100 mcg/hr transdermal patch RxNorm: 864284 1 Patch TD Q72H 06/29/2016 07/26/2016 Inactive oxycodone 15 mg tablet RxNorm: 8937240 1 Tablet(s) PO Q6 201507/13/2016 Inactive Duragesic 100 mcg/hr transdermal patch RxNorm: 260911 1 Patch TD Q72H 05/31/2016 06/28/2016 Inactive oxycodone 15 mg tablet RxNorm: 2761157 1 Tablet(s) PO Q6 201506/28/2016 Inactive Duragesic 100 mcg/hr transdermal patch RxNorm: 234500 1 Patch TD Q72H 05/01/2016 05/30/2016 Inactive oxycodone 15 mg tablet RxNorm: 1549882 1 Tablet(s) PO Q6 201505/27/2016 Inactive oxycodone 15 mg tablet RxNorm: 1094420 1 Tablet(s) PO QID 04/1704/27/2016 Inactive oxycodone 10 mg tablet RxNorm: 1856884 1 Tablet(s) PO Q4H 04/1404/16/2016 Inactive oxycodone 10 mg tablet RxNorm: 7159507 1 Tablet(s) PO Q4H 03/3004/13/2016 Inactive Duragesic 100 mcg/hr transdermal patch RxNorm: 348258 1 Patch TD Q72H 03/21/2016 04/19/2016 Inactive Duragesic 100 mcg/hr transdermal patch RxNorm: 544291 1 Patch TD Q72H 03/01/2016 03/20/2016 Inactive oxycodone 10 mg tablet RxNorm: 2797020 1 Tablet(s) PO Q4H 02/1403/15/2016 Inactive ketorolac 30 mg/mL injection solution RxNorm: 038974 2 Milliliter(s) Inj 02/03/2016 02/03/2016 Inactive Duragesic 100 mcg/hr transdermal patch RxNorm: 726211 1 Patch TD Q72H 02/03/2016 02/29/2016 Inactive fentanyl 75 mcg/hr transdermal patch RxNorm: 039359 1 TD Q72H 01/31/2016 02/02/2016 Inactive [SAVINGS FOR NON-COVERED DRUGS -- BIN:[id number], PCN: ASPROD1, Group: XXXXX, ID# [id number], Questions: . THIS IS NOT INSURANCE.] fentanyl 75 mcg/hr transdermal patch RxNorm: 120292 1 TD Q72H 01/27/2016 01/30/2016 Inactive [SAVINGS FOR NON-COVERED DRUGS -- BIN:974889, PCN: ASPROD1, Group: XXXXX, ID# [id number], Questions: . THIS IS NOT INSURANCE.] Voltaren 1 % topical gel RxNorm: 078311 4 Gram(s) TOP R hip and 1 Gram TOP L wrist QID 01/19/2016 05/27/2017 Inactive Voltaren 1 % topical gel RxNorm: 093846 2 Gram(s) TOP R hip and 1 Gram TOP L wrist QID as needed 01/19/2016 05/27/2017 Inactive oxycodone 10 mg tablet RxNorm: 4965019 1 Tablet(s) PO Q4H 01/0202/01/2016 Inactive fentanyl 75 mcg/hr transdermal patch RxNorm: 803725 1 TD Q72H 01/03/2016 01/26/2016 Inactive [SAVINGS FOR NON-COVERED DRUGS -- BIN:[id number], PCN: ASPROD1, Group: XXXXX, ID# XXXXXXX, Questions: . THIS IS NOT INSURANCE.] Biotene mouthwash RxNorm: 1 Tablespoon(s) MM BID 201501/18/2016 Inactive Biotene mouthwash RxNorm: 1 Tablespoon(s) MM BID 201512/01/2015 Inactive oxycodone 10 mg tablet RxNorm: 6501661 1 Tablet(s) PO Q4H 12/0112/31/2015 Inactive fentanyl 75 mcg/hr transdermal patch RxNorm: 495816 1 TD Q72H 11/29/2015 01/02/2016 Inactive [SAVINGS FOR NON-COVERED DRUGS -- BIN:242096, PCN: ASPROD1, Group: XXXXX, ID# XXXXXXX, Questions: . THIS IS NOT INSURANCE.] oxycodone 10 mg tablet RxNorm: 5503535 1 Tablet(s) PO Q4H 10/3111/30/2015 Inactive fentanyl 75 mcg/hr transdermal patch RxNorm: 021169 1 TD q 3 days 11/01/2015 11/28/2015 Inactive [SAVINGS FOR NON-COVERED DRUGS -- BIN:555575, PCN: ASPROD1, Group: XXXXX, ID# XXXXXXX, Questions: . THIS IS NOT INSURANCE.] oxycodone 10 mg tablet RxNorm: 0938723 1 Tablet(s) PO Q4H 09/2810/27/2015 Inactive fentanyl 75 mcg/hr transdermal patch RxNorm: 882844 1 TD q 3 days 09/28/2015 10/31/2015 Inactive [SAVINGS FOR NON-COVERED DRUGS -- BIN:261873, PCN: ASPROD1, Group: XXXXX, ID# [id number], Questions: . THIS IS NOT INSURANCE.] fentanyl 75 mcg/hr transdermal patch RxNorm: 896154 1 TD q 3 days 08/26/2015 09/27/2015 Inactive [SAVINGS FOR NON-COVERED DRUGS -- BIN:000117, PCN: ASPROD1, Group: XXXXX, ID# [id number], Questions: . THIS IS NOT INSURANCE.] fentanyl 75 mcg/hr transdermal patch RxNorm: 233558 1 TD q 3 days 08/02/2015 08/25/2015 Inactive [SAVINGS FOR NON-COVERED DRUGS -- BIN:249104, PCN: ASPROD1, Group: XXXXX, ID# XXXXXXX, Questions: . THIS IS NOT INSURANCE.] oxycodone 10 mg tablet RxNorm: 1304311 1 Tablet(s) PO Q4H 07/1908/17/2015 Inactive fentanyl 75 mcg/hr transdermal patch RxNorm: 333394 1 TD q 3 days 07/01/2015 08/01/2015 Inactive [SAVINGS FOR NON-COVERED DRUGS -- BIN:548712, PCN: ASPROD1, Group: XXXXX, ID# XXXXXXX, Questions: . THIS IS NOT INSURANCE.] oxycodone 10 mg tablet RxNorm: 1556602 1 Tablet(s) PO Q4H 06/0807/07/2015 Inactive fentanyl 75 mcg/hr transdermal patch RxNorm: 601981 1 TD q 3 days 06/02/2015 06/30/2015 Inactive [SAVINGS FOR NON-COVERED DRUGS -- BIN:153840, PCN: ASPROD1, Group: XXXXX, ID# XXXXXXX, Questions: . THIS IS NOT INSURANCE.] oxycodone 10 mg tablet RxNorm: 1096360 1 Tablet(s) PO Q4H 06/0206/07/2015 Inactive oxycodone 10 mg tablet RxNorm: 6520300 1 Tablet(s) PO Q4H 05/3106/01/2015 Inactive fentanyl 75 mcg/hr transdermal patch RxNorm: 337862 1 TD q 3 days 05/03/2015 06/01/2015 Inactive [SAVINGS FOR NON-COVERED DRUGS -- BIN:072433, PCN: ASPROD1, Group: XXXXX, ID# XXXXXXX, Questions: . THIS IS NOT INSURANCE.] oxycodone 10 mg tablet RxNorm: 1206638 1 Tablet(s) PO Q4H 05/0305/30/2015 Inactive oxycodone 10 mg tablet RxNorm: 3407710 1 Tablet(s) PO Q4H 03/2904/27/2015 Inactive fentanyl 75 mcg/hr transdermal patch RxNorm: 244994 1 TD q 3 days 03/16/2015 05/02/2015 Inactive [SAVINGS FOR NON-COVERED DRUGS -- BIN:784036, PCN: ASPROD1, Group: XXXXX, ID# XXXXXXX, Questions: . THIS IS NOT INSURANCE.] oxycodone 10 mg tablet RxNorm: 5721340 1 Tablet(s) PO Q4H as needed 03/04/2015 03/28/2015 Inactive fentanyl 75 mcg/hr transdermal patch RxNorm: 411826 1 TD q 3 days 02/02/2015 03/15/2015 Inactive [SAVINGS FOR NON-COVERED DRUGS -- BIN:190613, PCN: ASPROD1, Group: XXXXX, ID# XXXXXXX, Questions: . THIS IS NOT INSURANCE.] oxycodone 10 mg tablet RxNorm: 5713892 1 Tablet(s) PO Q4H as needed 01/28/2015 02/26/2015 Inactive fentanyl 75 mcg/hr transdermal patch RxNorm: 295071 1 TD q 3 days 01/04/2015 02/01/2015 Inactive [SAVINGS FOR NON-COVERED DRUGS -- BIN:169343, PCN: ASPROD1, Group: XXXXX, ID# XXXXXXX, Questions: . THIS IS NOT INSURANCE.] oxycodone 10 mg tablet RxNorm: 9069099 1 Tablet(s) PO Q4H as needed 12/28/2014 01/26/2015 Inactive aspirin 81 mg tablet RxNorm: 113090 1 Tablet(s) PO daily No Start Date Active Culturelle 10 billion cell capsule RxNorm: 107536 1 Capsule(s) PO BID No Start Date Active citalopram 20 mg tablet RxNorm: 521844 1 Tablet(s) PO daily No Start Date Active bisacodyl 10 mg rectal suppository RxNorm: 308590 1 Suppository RTL PRN No Start Date Active levothyroxine 50 mcg tablet RxNorm: 862318 1 Tablet(s) PO daily No Start Date Active digoxin 125 mcg tablet RxNorm: 732174 1 Tablet(s) PO daily No Start Date Active multivitamin capsule RxNorm: 1 Capsule(s) PO daily No Start Date Active Mylanta oral RxNorm: 702234 oral No Start Date Active Tylenol 325 mg tablet RxNorm: 714966 2 Tablet(s) PO as needed No Start Date Active Estrace 0.01% (0.1 mg/gram) vaginal cream RxNorm: 568828 1 Gram(s) VAG QW No Start Date Active doxepin 10 mg capsule RxNorm: 0869682 1 Capsule(s) PO daily No Start Date Active loperamide 2 mg tablet RxNorm: 044733 1 Tablet(s) PO Q2H as needed 1 cap after each loose stool, not to exceed 4/24 hours No Start Date Active Zofran 4 mg tablet RxNorm: 714911 1 Tablet(s) PO Q6 as needed No Start Date Active loratadine 10 mg tablet RxNorm: 185475 1 Tablet(s) PO daily No Start Date Active Vitamin D3 2,000 unit tablet RxNorm: 213054 1 Tablet(s) PO daily No Start Date Active Xarelto 15 mg tablet RxNorm: 4174173 1 Tablet(s) PO daily No Start Date Active Gas-X Extra Strength 125 mg chewable tablet RxNorm: 906466 1 Tablet(s) PO TID as needed gas pain No Start Date Active Milk of Magnesia oral RxNorm: 6581 oral No Start Date Active calcium 500 mg tablet RxNorm: 2 Tablet(s) PO daily No Start Date Active Colace 100 mg capsule RxNorm: 9108638 1 Capsule(s) PO daily No Start Date Active triamcinolone acetonide 0.1 % topical ointment RxNorm: 1451091 TOP daily as needed seborrheic dermatitis No Start Date Active Movantik 25 mg tablet RxNorm: 0434752 1 Tablet(s) PO daily No Start Date Active Vitamin B12 500 mcg RxNorm: 1 Tablet(s) PO daily No Start Date 05/27/2017 Inactive Voltaren 1 % topical gel RxNorm: 507446 4 Gram(s) TOP to shoulders, R hip QID as needed No Start Date 01/18/2016 Inactive Vitamin D2 1,000 unit capsule RxNorm: 970286 2 Capsule(s) PO No Start Date 01/19/2016 Inactive Xanax 0.5 mg tablet RxNorm: 571790 1 Tablet(s) PO Q6 as needed No Start Date 01/18/2016 Inactive calcitonin (salmon) 200 unit/actuation nasal spray RxNorm: 744478 1 Randolph NASAL daily No Start Date 05/27/2017 Inactive Miralax 17 gram oral powder packet RxNorm: 839678 PO as needed No Start Date 11/22/2016 Inactive Premarin 0.625 mg/gram vaginal cream RxNorm: 058416 1 Gram(s) VAG one time per week No Start Date 01/13/2016 Inactive Xarelto 20 mg tablet RxNorm: 2738192 1 Tablet(s) PO daily No Start Date 05/27/2017 Inactive Vitamin B-12 1,000 mcg tablet RxNorm: 084553 2 Tablet(s) PO daily No Start Date 05/27/2017 Inactive mirtazapine 7.5 mg tablet RxNorm: 301524 1 Tablet(s) PO QHS No Start Date 05/27/2017 Inactive Nexium 40 mg capsule,delayed release RxNorm: 305087 1 Capsule(s) PO daily No Start Date 11/22/2016 Inactive fentanyl 75 mcg/hr transdermal patch RxNorm: 195654 1 TD q 3 days No Start Date 01/03/2015 Inactive Voltaren 1 % topical gel RxNorm: 031388 1 Gram(s) TOP QID Left wrist No Start Date 01/18/2016 Inactive Medication Administered Medication Codes Instructions Start Date Status ketorolac 30 mg/mL injection solution RxNorm: 151024 2Milliliter 02/03/2016 No longer Active Immunizations No Immunization data Assessments Condition Codes Effective Dates Chronic atrial fibrillation ICD-10: I48.2 ICD-9: 427.31 07/05/2017 Chronic pain syndrome ICD-10: G89.4 ICD-9: 338.4 07/05/2017 Generalized anxiety disorder ICD-10: F41.1 ICD-9: 300.00 07/05/2017 Gastro-esophageal reflux disease without esophagitis ICD-10 : K21.9 ICD-9: 530.81 05/28/2017 Low back pain ICD-10: M54.5 ICD-9: 724.2 05/28/2017 Slow transit constipation ICD-10: K59.01 ICD-9: 564.01 05/28/2017 Pain in thoracic spine ICD-10: M54.6 ICD-9: 724.1 05/11/2017 Other chronic pain ICD-10: G89.29 ICD-9: 338.29 05/02/2017 Diverticulum of esophagus, 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 ICD-9: 530.6 03/27/2017 Seborrheic dermatitis, unspecified ICD-10: L21.9 ICD-9: 690.10 02/26/2017 Abnormal weight loss ICD-10: R63.4 ICD-9: 783.21 02/26/2017 Dysphagia, pharyngoesophageal phase ICD-10: R13.14 ICD-9: 787.22 02/26/2017 Primary osteoarthritis, unspecified site ICD-10: M19.91 ICD-9: 715.90 02/26/2017 Tinea barbae and tinea capitis ICD-10: B35.0 ICD-9: 110.0 02/12/2017 Postnasal drip ICD-10: R09.82 ICD-9: 784.91 02/12/2017 Chronic idiopathic constipation ICD-10: K59.04 ICD-9: 564.09 11/23/2016 Major depressive disorder, single episode, mild ICD-10: F32.0 ICD-9: 296.21 11/06/2016 Shortness of breath ICD-10: R06.02 ICD-9: 786.05 11/06/2016 Other fatigue ICD-10: R53.83 ICD-9: 780.79 10/05/2016 Other malaise ICD-10: R53.81 ICD-9: 780.79 10/05/2016 Rash and other nonspecific skin eruption ICD-10: R21 ICD-9: 782.1 07/25/2016 Pain in left shoulder ICD-10: M25.512 ICD-9: 719.41 07/25/2016 Hypothyroidism, unspecified ICD-10: E03.9 ICD-9: 244.9 04/26/2016 Pain in right hip ICD-10: M25.551 ICD-9: 719.45 04/26/2016 Pain, unspecified ICD-10: R52 ICD-9: 780.96 02/03/2016 Unspecified fall, sequela ICD-10: W19.XXXS ICD-9: E929.3 02/03/2016 Major depressive disorder, single episode, unspecified ICD- 10: F32.9 ICD-9: 311 11/04/2015 DYSPHAGIA, OROPHARYNGEAL ICD-9: 787.22 Left wrist pain ICD-9: 719.43 02/24/2015 Dysphagia ICD-9: 787.20 02/24/2015 Hypothyroidism ICD-9: 244.9 02/08/2015 URINARY FREQUENCY ICD-9: 788.41 2014 A-fib ICD-9: 427.31 02/08/2015 Osteoarthritis ICD-9: 715.90 02/08/2015 Reason For Visit Reason For Visit Effective Dates Notes pain 07/05/2017 pain 06/21/2017 Hospital Follow Up 05/28/2017 Hospital Follow Up 05/11/2017 pain, generalized 05/02/2017 dyspnea on exertion 03/27/2017 nausea 02/26/2017 improved nausea 02/12/2017 pruritus 11/23/2016 depression 11/06/2016 constipation 10/05/2016 dysphagia 09/14/2016 rash 07/25/2016 dysphagia 06/13/2016 joint complaint 04/26/2016 hip pain 04/17/2016 joint complaint 02/03/2016 joint complaint 01/19/2016 depression 11/04/2015 shoulder pain 10/20/2015 hip pain 07/26/2015 Knees, Left arm, Left wrist hip pain 02/24/2015 rt arrhythmia 02/08/2015 Results Observation Observation Code Item Item Code Result Date Comp Metabolic Aut648 NA 132 mEq/L 10/05/2016 Comp Metabolic Iyw307 K 4.1 mEq/L 10/05/2016 Comp Metabolic Omo039 CL 96 mEq/L 10/05/2016 Comp Metabolic Nad004 CO2 27.0 mEq/L 10/05/2016 Comp Metabolic Bhx010 ANION GAP 13 10/05/2016 Comp Metabolic Gnf545 GLUCOSE 93 mg/dL 10/05/2016 Comp Metabolic Azc538 Creat 0.6 mg/dL 10/05/2016 Comp Metabolic Jwb307 eGFR 104 ml/min/1.73m2 10/05/2016 Comp Metabolic Ies911 BUN 13 mg/dL 10/05/2016 Comp Metabolic Fnl780 B/C Ratio 22.4 Ratio 10/05/2016 Comp Metabolic Kqm643 CALCIUM 9.5 mg/dL 10/05/2016 Comp Metabolic Fgt825 ALK PHOS 46 U/L 10/05/2016 Comp Metabolic Dwp411 AST(SGOT) 15 U/L 10/05/2016 Comp Metabolic Myz058 ALT(SGPT) 8 U/L 10/05/2016 Comp Metabolic Xrg598 BILI T 0.5 mg/dL 10/05/2016 Comp Metabolic Uyw864 ALBUMIN 4.0 g/dL 10/05/2016 Comp Metabolic [id number] TPRO 7.3 g/dL 10/05/2016 Comp Metabolic [id number] GLOB 3.3 g/dL 10/05/2016 Comp Metabolic Agd404 A/G Ratio 1.2 Ratio 10/05/2016 Comp Metabolic [id number] Osmo 264 mOsmo 10/05/2016 Cbc With Differential Ord2 WBC 6.16 K/ul 10/05/2016 Cbc With Differential Ord2 RBC 3.98 M/ul 10/05/2016 Cbc With Differential Ord2 HGB 12.1 g/dl 10/05/2016 Cbc With Differential Ord2 HCT 37.6 % 10/05/2016 Cbc With Differential Ord2 Neut% 73.8 % 10/05/2016 Cbc With Differential Ord2 MCV 94.5 fl 10/05/2016 Cbc With Differential Ord2 Lymph% 18.7 % 10/05/2016 Cbc With Differential Ord2 MCH 30.4 pg 10/05/2016 Cbc With Differential Ord2 Mesa% 6.0 % 10/05/2016 Cbc With Differential Ord2 Eos% 1.3 % 10/05/2016 Cbc With Differential Ord2 MCHC 32.2 pg 10/05/2016 Cbc With Differential Ord2 PLT 279 K/ul 10/05/2016 Cbc With Differential Ord2 Baso% 0.2 % 10/05/2016 Cbc With Differential Ord2 Neut ABS# 4.55 K/ul 10/05/2016 Cbc With Differential Ord2 RDW 14.2 % 10/05/2016 Cbc With Differential Ord2 Lymph ABS# 1.15 K/ul 10/05/2016 Cbc With Differential Ord2 Mesa ABS# 0.4 K/ul 10/05/2016 Cbc With Differential Ord2 Eos ABS# 0.1 K/ul 10/05/2016 Cbc With Differential Ord2 Baso ABS# 0.0 K/ul 10/05/2016 Review of Systems System Result Effective Dates Constitutional No recent illness 2016 Constitutional No chills 07/05/2017 Constitutional No diaphoresis 07/05/2017 Constitutional fatigue 07/05/2017 Constitutional No fever 07/05/2017 Constitutional No insomnia 07/05/2017 Constitutional malaise 07/05/2017 Eyes No eye discharge 07/05/2017 Eyes No eye erythema 07/05/2017 Ears/Nose/Throat/Neck No dental pain Cardiovascular No chest pain/pressure Respiratory No cough 07/05/2017 Gastrointestinal No abdominal pain 2016 Gastrointestinal constipation 07/05/2017 Gastrointestinal gastroesophageal reflux 07/05/2017 Musculoskeletal back pain 07/05/2017 Musculoskeletal joint complaint 2016 Dermatologic No rash 07/05/2017 Neurologic No alteration of consciousness 07/05/2017 Psychiatric anxiety 07/05/2017 Constitutional No recent illness 2016 Constitutional No chills 06/21/2017 Constitutional No diaphoresis 06/21/2017 Constitutional fatigue 06/21/2017 Eyes No eye discharge 06/21/2017 Eyes No eye erythema 06/21/2017 Cardiovascular No chest pain/pressure 09/2016 Respiratory No cough 06/21/2017 Gastrointestinal No abdominal pain 2016 Musculoskeletal back pain 06/21/2017 Musculoskeletal joint complaint 2016 Dermatologic No rash 06/21/2017 Neurologic No alteration of consciousness 06/21/2017 Psychiatric anxiety 06/21/2017 Constitutional malaise 06/21/2017 Constitutional No fever 06/21/2017 Ears/Nose/Throat/Neck No nasal discharge 06/21/2017 Gastrointestinal constipation 06/21/2017 Constitutional No recent illness 2016 Constitutional No anorexia 05/28/2017 Constitutional No night sweats 2016 Constitutional No chills 05/28/2017 Constitutional No diaphoresis 05/28/2017 Constitutional fatigue 05/28/2017 Constitutional No fever 05/28/2017 Constitutional No insomnia 05/28/2017 Eyes No eye discharge 05/28/2017 Eyes No eye erythema 05/28/2017 Ears/Nose/Throat/Neck No dental pain 04/2017 Cardiovascular No chest pain/pressure 04/2017 Respiratory No cough 05/28/2017 Gastrointestinal No abdominal pain 2016 Gastrointestinal constipation 05/28/2017 Musculoskeletal back pain 05/28/2017 Musculoskeletal joint complaint 2016 Dermatologic No rash 05/28/2017 Neurologic No alteration of consciousness 05/28/2017 Psychiatric anxiety 05/28/2017 Constitutional malaise 05/28/2017 Gastrointestinal gastroesophageal reflux 05/28/2017 Constitutional No recent illness 2016 Constitutional No anorexia 05/11/2017 Constitutional No night sweats 2016 Constitutional No chills 05/11/2017 Constitutional No diaphoresis 05/11/2017 Constitutional fatigue 05/11/2017 Constitutional No fever 05/11/2017 Constitutional No insomnia 05/11/2017 Constitutional No malaise 05/11/2017 Constitutional No weight loss 05/11/2017 Constitutional No weight gain 05/11/2017 Eyes No eye erythema 05/11/2017 Eyes No eye discharge 05/11/2017 Ears/Nose/Throat/Neck No dental pain Cardiovascular No chest pain/pressure Respiratory No cough 05/11/2017 Gastrointestinal No abdominal pain 2016 Gastrointestinal constipation 05/11/2017 Musculoskeletal joint complaint 2016 Musculoskeletal back pain 05/11/2017 Dermatologic No rash 05/11/2017 Neurologic No alteration of consciousness 05/11/2017 Psychiatric anxiety 05/11/2017 Genitourinary/Nephrology No dysuria 05/11 Constitutional recent illness 05/02/2017 Constitutional fatigue 05/02/2017 Ears/Nose/Throat/Neck No headache 2016 Cardiovascular No chest pain/pressure Cardiovascular No dyspnea 05/02/2017 Cardiovascular No edema 05/02/2017 Cardiovascular exercise intolerance 05/02 Cardiovascular fatigue 05/02/2017 Respiratory No cough 05/02/2017 Respiratory No chest tightness 2016 Gastrointestinal No abdominal pain 2016 Gastrointestinal No constipation 2016 Genitourinary/Nephrology No urinary urgency 05/02/2017 Musculoskeletal stiffness 05/02/2017 Musculoskeletal back pain 05/02/2017 Psychiatric anxiety 05/02/2017 Psychiatric No depression 05/02/2017 Neurologic gait abnormality 05/02/2017 Constitutional No night sweats 2016 Constitutional No chills 03/27/2017 Constitutional No diaphoresis 03/27/2017 Constitutional fatigue 03/27/2017 Constitutional No fever 03/27/2017 Constitutional No insomnia 03/27/2017 Constitutional No malaise 03/27/2017 Eyes No eye discharge 03/27/2017 Eyes No eye erythema 03/27/2017 Ears/Nose/Throat/Neck No dizziness 2016 Cardiovascular No chest pain/pressure 03/2017 Cardiovascular No dyspnea 03/27/2017 Cardiovascular No edema 03/27/2017 Respiratory No productive sputum 2016 Respiratory No chest congestion 2016 Respiratory No cough 03/27/2017 Gastrointestinal No abdominal pain 2016 Gastrointestinal constipation 03/27/2017 Gastrointestinal No diarrhea 03/27/2017 Genitourinary/Nephrology No dysuria 03/27 Genitourinary/Nephrology No urinary frequency 03/27/2017 Musculoskeletal joint complaint 2016 Dermatologic No rash 03/27/2017 Neurologic No alteration of consciousness 03/27/2017 Psychiatric anxiety 03/27/2017 Psychiatric depression 03/27/2017 Endocrine No dry or coarse skin 2016 Gastrointestinal dyspepsia 03/27/2017 Gastrointestinal dysphagia 03/27/2017 Gastrointestinal nausea 03/27/2017 Constitutional No recent illness 2016 Constitutional anorexia 02/26/2017 Constitutional No night sweats 2016 Constitutional No chills 02/26/2017 Constitutional No diaphoresis 02/26/2017 Constitutional No fatigue 02/26/2017 Constitutional No fever 02/26/2017 Constitutional No insomnia 02/26/2017 Constitutional No malaise 02/26/2017 Constitutional No weight loss 02/26/2017 Constitutional No weight gain 02/26/2017 Eyes No eye discharge 02/26/2017 Eyes No eye erythema 02/26/2017 Ears/Nose/Throat/Neck No headache 2016 Ears/Nose/Throat/Neck hearing loss 2016 Ears/Nose/Throat/Neck nasal allergies 05/2017 Ears/Nose/Throat/Neck nasal discharge 05/2017 Ears/Nose/Throat/Neck postnasal drip 05/2017 Cardiovascular No chest pain/pressure 05/2017 Cardiovascular No dyspnea 02/26/2017 Respiratory No productive sputum 2016 Respiratory No cough 02/26/2017 Gastrointestinal No abdominal pain 2016 Gastrointestinal constipation 02/26/2017 Gastrointestinal No diarrhea 02/26/2017 Genitourinary/Nephrology No dysuria 02/26 Musculoskeletal joint complaint 2016 Dermatologic rash 02/26/2017 Neurologic No alteration of consciousness 02/26/2017 Psychiatric anxiety 02/26/2017 Psychiatric depression 02/26/2017 Endocrine dry or coarse skin 02/26/2017 Ears/Nose/Throat/Neck No dizziness 2016 Constitutional No recent illness 2016 Constitutional anorexia 02/12/2017 Constitutional No night sweats 2016 Constitutional No chills 02/12/2017 Constitutional No diaphoresis 02/12/2017 Constitutional No fatigue 02/12/2017 Constitutional No fever 02/12/2017 Constitutional No insomnia 02/12/2017 Constitutional No malaise 02/12/2017 Constitutional No weight loss 02/12/2017 Constitutional No weight gain 02/12/2017 Eyes No eye erythema 02/12/2017 Eyes No eye discharge 02/12/2017 Ears/Nose/Throat/Neck dizziness 2016 Ears/Nose/Throat/Neck No headache 2016 Ears/Nose/Throat/Neck hearing loss 2016 Ears/Nose/Throat/Neck nasal discharge Ears/Nose/Throat/Neck nasal allergies Ears/Nose/Throat/Neck postnasal drip Cardiovascular No chest pain/pressure Cardiovascular No dyspnea 02/12/2017 Respiratory No productive sputum 2016 Respiratory No cough 02/12/2017 Gastrointestinal No abdominal pain 2016 Gastrointestinal constipation 02/12/2017 Gastrointestinal No diarrhea 02/12/2017 Genitourinary/Nephrology No dysuria 02/12 Musculoskeletal joint complaint 2016 Dermatologic No rash 02/12/2017 Neurologic No alteration of consciousness 02/12/2017 Psychiatric anxiety 02/12/2017 Psychiatric depression 02/12/2017 Endocrine dry or coarse skin 02/12/2017 Constitutional No night sweats 2016 Constitutional No chills 11/23/2016 Constitutional No diaphoresis 11/23/2016 Constitutional fatigue 11/23/2016 Constitutional No fever 11/23/2016 Constitutional No insomnia 11/23/2016 Constitutional No malaise 11/23/2016 Eyes No eye discharge 11/23/2016 Eyes No eye erythema 11/23/2016 Ears/Nose/Throat/Neck No dizziness 2016 Cardiovascular No chest pain/pressure 01/2017 Cardiovascular No dyspnea 11/23/2016 Cardiovascular No edema 11/23/2016 Respiratory No productive sputum 2016 Respiratory No chest congestion 2016 Respiratory No cough 11/23/2016 Gastrointestinal No abdominal pain 2016 Gastrointestinal constipation 11/23/2016 Gastrointestinal No diarrhea 11/23/2016 Genitourinary/Nephrology No dysuria 11/23 Genitourinary/Nephrology No urinary frequency 11/23/2016 Musculoskeletal joint complaint 2016 Dermatologic No rash 11/23/2016 Neurologic No alteration of consciousness 11/23/2016 Psychiatric anxiety 11/23/2016 Psychiatric depression 11/23/2016 Endocrine No dry or coarse skin 2016 Constitutional No recent illness 2016 Constitutional No fever 11/06/2016 Eyes No eye erythema 11/06/2016 Ears/Nose/Throat/Neck nasal allergies Ears/Nose/Throat/Neck nasal discharge Cardiovascular No chest pain/pressure Respiratory No chest congestion 2016 Respiratory No cough 11/06/2016 Respiratory dyspnea on exertion 2016 Respiratory No dyspnea 11/06/2016 Gastrointestinal No abdominal pain 2016 Gastrointestinal constipation 11/06/2016 Gastrointestinal No nausea 11/06/2016 Gastrointestinal No vomiting 11/06/2016 Neurologic No alteration of consciousness 11/06/2016 Psychiatric anxiety 11/06/2016 Psychiatric depression 11/06/2016 Constitutional anorexia 11/06/2016 Constitutional No recent illness 2016 Constitutional No fever 10/05/2016 Eyes No eye erythema 10/05/2016 Ears/Nose/Throat/Neck nasal allergies Ears/Nose/Throat/Neck nasal discharge Cardiovascular No chest pain/pressure Respiratory No chest congestion 2016 Respiratory No cough 10/05/2016 Gastrointestinal No abdominal pain 2016 Gastrointestinal constipation 10/05/2016 Gastrointestinal No vomiting 10/05/2016 Neurologic No alteration of consciousness 10/05/2016 Psychiatric anxiety 10/05/2016 Gastrointestinal No nausea 10/05/2016 Respiratory dyspnea on exertion 2016 Respiratory No dyspnea 10/05/2016 Constitutional recent illness 09/14/2016 Constitutional No insomnia 09/14/2016 Constitutional No fever 09/14/2016 Constitutional No malaise 09/14/2016 Eyes No eye erythema 09/14/2016 Ears/Nose/Throat/Neck nasal allergies Ears/Nose/Throat/Neck nasal discharge Ears/Nose/Throat/Neck postnasal drip Cardiovascular No chest pain/pressure Respiratory No chest congestion 2016 Respiratory No cough 09/14/2016 Gastrointestinal nausea 09/14/2016 Gastrointestinal constipation 09/14/2016 Gastrointestinal No abdominal pain 2016 Gastrointestinal No vomiting 09/14/2016 Genitourinary/Nephrology No dysuria 09/14 Neurologic No alteration of consciousness 09/14/2016 Psychiatric anxiety 09/14/2016 Musculoskeletal joint complaint 2015 Dermatologic rash 07/25/2016 Constitutional No recent illness 2015 Constitutional No anorexia 07/25/2016 Constitutional No night sweats 2015 Constitutional No chills 07/25/2016 Constitutional No diaphoresis 07/25/2016 Constitutional No fatigue 07/25/2016 Constitutional No fever 07/25/2016 Constitutional No insomnia 07/25/2016 Constitutional No weight loss 07/25/2016 Constitutional No weight gain 07/25/2016 Constitutional No obesity 07/25/2016 Constitutional No malaise 07/25/2016 Gastrointestinal No abdominal pain 2015 Gastrointestinal gastroesophageal reflux 06/13/2016 Gastrointestinal dysphagia 06/13/2016 Gastrointestinal constipation 06/13/2016 Gastrointestinal No diarrhea 06/13/2016 Constitutional No recent illness 2015 Constitutional No anorexia 06/13/2016 Constitutional No night sweats 2015 Constitutional No chills 06/13/2016 Constitutional No diaphoresis 06/13/2016 Constitutional No fatigue 06/13/2016 Constitutional No fever 06/13/2016 Constitutional No insomnia 06/13/2016 Constitutional No malaise 06/13/2016 Constitutional No weight loss 06/13/2016 Constitutional No weight gain 06/13/2016 Psychiatric anxiety 06/13/2016 Psychiatric depression 06/13/2016 Eyes No eye erythema 06/13/2016 Eyes No eye discharge 06/13/2016 Ears/Nose/Throat/Neck No dizziness 2015 Ears/Nose/Throat/Neck No headache 2015 Cardiovascular No chest pain/pressure Respiratory No cough 06/13/2016 Genitourinary/Nephrology No dysuria 06/13 Musculoskeletal joint complaint 2015 Dermatologic No rash 06/13/2016 Neurologic No alteration of consciousness 06/13/2016 Constitutional No night sweats 2015 Constitutional No chills 04/26/2016 Constitutional No diaphoresis 04/26/2016 Constitutional fatigue 04/26/2016 Constitutional No fever 04/26/2016 Constitutional No insomnia 04/26/2016 Constitutional No malaise 04/26/2016 Ears/Nose/Throat/Neck No dizziness 2015 Cardiovascular No chest pain/pressure 02/2016 Cardiovascular No dyspnea 04/26/2016 Cardiovascular No edema 04/26/2016 Respiratory No productive sputum 2015 Respiratory No chest congestion 2015 Respiratory No cough 04/26/2016 Gastrointestinal No abdominal pain 2015 Gastrointestinal constipation 04/26/2016 Genitourinary/Nephrology No dysuria 04/26 Genitourinary/Nephrology No urinary frequency 04/26/2016 Dermatologic No rash 04/26/2016 Neurologic No alteration of consciousness 04/26/2016 Psychiatric anxiety 04/26/2016 Psychiatric depression 04/26/2016 Endocrine No dry or coarse skin 2015 Hematologic/Lymphatic No abnormal bleeding and bruising 04/26/2016 Musculoskeletal stiffness 04/26/2016 Musculoskeletal back pain 04/26/2016 Musculoskeletal joint complaint 2015 Constitutional No chills 04/17/2016 Constitutional No diaphoresis 04/17/2016 Constitutional No fever 04/17/2016 Constitutional No malaise 04/17/2016 Eyes No eye discharge 04/17/2016 Eyes No eye erythema 04/17/2016 Cardiovascular No chest pain/pressure Cardiovascular No dyspnea 04/17/2016 Respiratory No chest congestion 2015 Respiratory No cough 04/17/2016 Gastrointestinal No abdominal pain 2015 Gastrointestinal No diarrhea 04/17/2016 Dermatologic No rash 04/17/2016 Neurologic No alteration of consciousness 04/17/2016 Constitutional No recent illness 2015 Ears/Nose/Throat/Neck No nasal allergies 04/17/2016 Gastrointestinal constipation 04/17/2016 Musculoskeletal joint complaint 2015 Neurologic No mental status change 2015 Constitutional No night sweats 2015 Constitutional No chills 02/03/2016 Constitutional No diaphoresis 02/03/2016 Constitutional fatigue 02/03/2016 Constitutional No fever 02/03/2016 Constitutional No insomnia 02/03/2016 Constitutional No malaise 02/03/2016 Eyes No eye discharge 02/03/2016 Eyes No eye erythema 02/03/2016 Ears/Nose/Throat/Neck No dizziness 2015 Cardiovascular No chest pain/pressure Cardiovascular No dyspnea 02/03/2016 Cardiovascular No edema 02/03/2016 Respiratory No productive sputum 2015 Respiratory No chest congestion 2015 Respiratory No cough 02/03/2016 Gastrointestinal No abdominal pain 2015 Gastrointestinal constipation 02/03/2016 Gastrointestinal No diarrhea 02/03/2016 Genitourinary/Nephrology No dysuria 02/02 Genitourinary/Nephrology No urinary frequency 02/03/2016 Musculoskeletal joint complaint 2015 Dermatologic No rash 02/03/2016 Neurologic No alteration of consciousness 02/03/2016 Psychiatric anxiety 02/03/2016 Psychiatric depression 02/03/2016 Endocrine No dry or coarse skin 2015 Hematologic/Lymphatic No abnormal bleeding and bruising 02/03/2016 Constitutional No night sweats 2015 Constitutional No chills 01/19/2016 Constitutional No diaphoresis 01/19/2016 Constitutional fatigue 01/19/2016 Constitutional No fever 01/19/2016 Constitutional No insomnia 01/19/2016 Constitutional No malaise 01/19/2016 Eyes No eye discharge 01/19/2016 Eyes No eye erythema 01/19/2016 Ears/Nose/Throat/Neck No dizziness 2015 Cardiovascular No chest pain/pressure 08/2015 Cardiovascular No dyspnea 01/19/2016 Cardiovascular No edema 01/19/2016 Respiratory No productive sputum 2015 Respiratory No chest congestion 2015 Respiratory No cough 01/19/2016 Gastrointestinal No abdominal pain 2015 Gastrointestinal constipation 01/19/2016 Gastrointestinal No diarrhea 01/19/2016 Genitourinary/Nephrology No dysuria 01/18 Genitourinary/Nephrology No urinary frequency 01/19/2016 Musculoskeletal joint complaint 2015 Dermatologic No rash 01/19/2016 Neurologic No alteration of consciousness 01/19/2016 Psychiatric anxiety 01/19/2016 Psychiatric depression 01/19/2016 Endocrine No dry or coarse skin 2015 Hematologic/Lymphatic No abnormal bleeding and bruising 01/19/2016 Constitutional No night sweats 2015 Constitutional No chills 11/04/2015 Constitutional No diaphoresis 11/04/2015 Constitutional fatigue 11/04/2015 Constitutional No fever 11/04/2015 Constitutional No insomnia 11/04/2015 Constitutional No malaise 11/04/2015 Eyes No eye discharge 11/04/2015 Eyes No eye erythema 11/04/2015 Ears/Nose/Throat/Neck headache 2015 Cardiovascular No chest pain/pressure Cardiovascular No dyspnea 11/04/2015 Cardiovascular No edema 11/04/2015 Respiratory No productive sputum 2015 Respiratory No chest congestion 2015 Respiratory No cough 11/04/2015 Gastrointestinal No abdominal pain 2015 Gastrointestinal No constipation 2015 Gastrointestinal No diarrhea 11/04/2015 Genitourinary/Nephrology No dysuria 11/03 Musculoskeletal joint complaint 2015 Dermatologic No rash 11/04/2015 Neurologic No alteration of consciousness 11/04/2015 Psychiatric anxiety 11/04/2015 Psychiatric depression 11/04/2015 Constitutional anorexia 11/04/2015 Gastrointestinal nausea 11/04/2015 Constitutional No night sweats 2015 Constitutional No chills 10/20/2015 Constitutional No diaphoresis 10/20/2015 Constitutional fatigue 10/20/2015 Constitutional No fever 10/20/2015 Constitutional No insomnia 10/20/2015 Constitutional No malaise 10/20/2015 Eyes No eye discharge 10/20/2015 Eyes No eye erythema 10/20/2015 Ears/Nose/Throat/Neck No dizziness 2015 Cardiovascular No chest pain/pressure 09/2015 Cardiovascular No dyspnea 10/20/2015 Cardiovascular No edema 10/20/2015 Respiratory No productive sputum 2015 Respiratory No chest congestion 2015 Respiratory No cough 10/20/2015 Gastrointestinal No abdominal pain 2015 Gastrointestinal No diarrhea 10/20/2015 Genitourinary/Nephrology No dysuria 10/19 Genitourinary/Nephrology No urinary frequency 10/20/2015 Musculoskeletal joint complaint 2015 Dermatologic No rash 10/20/2015 Neurologic No alteration of consciousness 10/20/2015 Psychiatric anxiety 10/20/2015 Psychiatric depression 10/20/2015 Ears/Nose/Throat/Neck No headache 2015 Gastrointestinal No constipation 2015 Constitutional No night sweats 2014 Constitutional No chills 07/26/2015 Constitutional No diaphoresis 07/26/2015 Constitutional fatigue 07/26/2015 Constitutional No fever 07/26/2015 Constitutional No insomnia 07/26/2015 Constitutional No malaise 07/26/2015 Eyes No eye discharge 07/26/2015 Eyes No eye erythema 07/26/2015 Ears/Nose/Throat/Neck No dizziness 2014 Ears/Nose/Throat/Neck headache 2014 Cardiovascular No chest pain/pressure 02/2015 Cardiovascular No dyspnea 07/26/2015 Cardiovascular No edema 07/26/2015 Respiratory No productive sputum 2014 Respiratory No chest congestion 2014 Respiratory No cough 07/26/2015 Gastrointestinal No abdominal pain 2014 Gastrointestinal constipation 07/26/2015 Gastrointestinal No diarrhea 07/26/2015 Genitourinary/Nephrology No dysuria 07/26 Genitourinary/Nephrology No urinary frequency 07/26/2015 Musculoskeletal joint complaint 2014 Dermatologic No rash 07/26/2015 Neurologic No alteration of consciousness 07/26/2015 Psychiatric anxiety 07/26/2015 Psychiatric depression 07/26/2015 Endocrine No dry or coarse skin 2014 Hematologic/Lymphatic No abnormal bleeding and bruising 07/26/2015 Constitutional No night sweats 2014 Constitutional No chills 02/24/2015 Constitutional No diaphoresis 02/24/2015 Constitutional fatigue 02/24/2015 Constitutional No fever 02/24/2015 Constitutional No insomnia 02/24/2015 Constitutional No malaise 02/24/2015 Eyes No eye discharge 02/24/2015 Eyes No eye erythema 02/24/2015 Ears/Nose/Throat/Neck No dizziness 2014 Ears/Nose/Throat/Neck headache 2014 Cardiovascular No chest pain/pressure 03/2015 Cardiovascular No dyspnea 02/24/2015 Cardiovascular No edema 02/24/2015 Respiratory No productive sputum 2014 Respiratory No chest congestion 2014 Respiratory No cough 02/24/2015 Gastrointestinal No abdominal pain 2014 Gastrointestinal constipation 02/24/2015 Gastrointestinal No diarrhea 02/24/2015 Genitourinary/Nephrology No dysuria 02/24 Genitourinary/Nephrology No urinary frequency 02/24/2015 Musculoskeletal joint complaint 2014 Dermatologic No rash 02/24/2015 Neurologic No alteration of consciousness 02/24/2015 Psychiatric anxiety 02/24/2015 Psychiatric depression 02/24/2015 Endocrine No dry or coarse skin 2014 Hematologic/Lymphatic No abnormal bleeding and bruising 02/24/2015 Genitourinary/Nephrology No dysuria 02/08 Genitourinary/Nephrology No urinary frequency 02/08/2015 Constitutional No recent illness 2014 Constitutional No anorexia 02/08/2015 Constitutional No insomnia 02/08/2015 Constitutional No malaise 02/08/2015 Constitutional No fever 02/08/2015 Constitutional No night sweats 2014 Constitutional No chills 02/08/2015 Constitutional No diaphoresis 02/08/2015 Constitutional fatigue 02/08/2015 Constitutional No weight loss 02/08/2015 Constitutional No weight gain 02/08/2015 Eyes No eye discharge 02/08/2015 Eyes No eye erythema 02/08/2015 Ears/Nose/Throat/Neck No dizziness 2014 Ears/Nose/Throat/Neck headache 2014 Cardiovascular No chest pain/pressure Cardiovascular No edema 02/08/2015 Cardiovascular No dyspnea 02/08/2015 Respiratory No productive sputum 2014 Respiratory No chest congestion 2014 Respiratory No cough 02/08/2015 Gastrointestinal No abdominal pain 2014 Gastrointestinal constipation 02/08/2015 Gastrointestinal No diarrhea 02/08/2015 Musculoskeletal joint complaint 2014 Dermatologic No rash 02/08/2015 Neurologic No alteration of consciousness 02/08/2015 Psychiatric anxiety 02/08/2015 Psychiatric depression 02/08/2015 Endocrine No dry or coarse skin 2014 Hematologic/Lymphatic No abnormal bleeding and bruising 02/08/2015 Physical Exam Exam Name System Name Item Name Status Result Effective Dates Notes Full Exam - General 1994 Constitutional general appearance Overall: well developed 07/05/2017 None Full Exam - General 1994 Constitutional general appearance Overall: well nourished 07/05/2017 None Full Exam - General 1994 Ears/Nose/Throat otoscopic exam Overall: external auditory canals clear 07/05/2017 None Full Exam - General 1994 Ears/Nose/Throat otoscopic exam Overall: tympanic membranes clear 07/05/2017 None Full Exam - General 1994 Ears/Nose/Throat lips/teeth/gingiva Overall: benign lips 07/05/2017 None Full Exam - General 1994 Ears/Nose/Throat oral cavity/pharynx/larynx Overall: oral mucosa clear 07/05/2017 None Full Exam - General 1994 Ears/Nose/Throat oral cavity/pharynx/larynx Overall: oropharyngeal mucosa clear 07/05/2017 None Full Exam - General 1994 Ears/Nose/Throat oral cavity/pharynx/larynx Overall: no masses 07/05/2017 None Full Exam - General 1994 Respiratory auscultation Overall: breath sounds clear bilaterally 07/05/2017 None Full Exam - General 1994 Respiratory respiratory effort/rhythm Overall: no retractions 07/05/2017 None Full Exam - General 1994 Respiratory respiratory effort/rhythm Overall: normal rate 07/05/2017 None Full Exam - General 1994 Cardiovascular extremities Overall: no clubbing 07/05/2017 None Full Exam - General 1994 Cardiovascular auscultation of heart Overall: regular rate 07/05/2017 None Full Exam - General 1994 Cardiovascular auscultation of heart Overall: normal heart sounds 07/05/2017 None Full Exam - General 1994 Cardiovascular auscultation of heart Overall: no murmurs 07/05/2017 None Full Exam - General 1994 Abdomen abdominal exam Overall: no tenderness 07/05/2017 None Full Exam - General 1994 Abdomen abdominal exam Overall: normal bowel sounds 07/05/2017 None Full Exam - General 1994 Abdomen liver and spleen exam Overall: no hepatosplenomegaly 07/05/2017 None Full Exam - General 1994 Abdomen liver and spleen exam Overall: no stigmata of chronic liver disease 07/05/2017 None Full Exam - General 1994 Lymphatic neck nodes Overall: anterior cervical chain benign 07/05/2017 None Full Exam - General 1994 Lymphatic neck nodes Overall: posterior cervical chain benign 07/05/2017 None Full Exam - General 1994 Musculoskeletal spine, ribs and pelvis Posture: kyphosis 07/05/2017 None Full Exam - General 1994 Musculoskeletal spine, ribs and pelvis Spine: tender @ thoracic spine 07/05/2017 None Full Exam - General 1994 Psychiatric orientation/consciousness Overall: oriented to person, place and time 07/05/2017 None Full Exam - General 1994 Psychiatric mood and affect Overall: normal mood and affect 07/05/2017 None Full Exam - General 1994 Psychiatric mood and affect Mood: flat 07/05/2017 None Full Exam - General 1994 Eyes conjunctiva /eyelids Overall: conjunctiva clear 07/05/2017 None Full Exam - General 1994 Eyes conjunctiva /eyelids Overall: eyelids normal 07/05/2017 None Full Exam - General 1994 Eyes conjunctiva /eyelids Overall: cornea clear 07/05/2017 None Full Exam - General 1994 Constitutional general appearance Overall: well developed 06/21/2017 None Full Exam - General 1994 Constitutional general appearance Overall: well nourished 06/21/2017 None Full Exam - General 1994 Eyes conjunctiva /eyelids Overall: conjunctiva clear 06/21/2017 None Full Exam - General 1994 Eyes conjunctiva /eyelids Overall: cornea clear 06/21/2017 None Full Exam - General 1994 Eyes conjunctiva /eyelids Overall: eyelids normal 06/21/2017 None Full Exam - General 1994 Ears/Nose/Throat lips/teeth/gingiva Overall: benign lips 06/21/2017 None Full Exam - General 1994 Ears/Nose/Throat oral cavity/pharynx/larynx Overall: oral mucosa clear 06/21/2017 None Full Exam - General 1994 Ears/Nose/Throat oral cavity/pharynx/larynx Overall: oropharyngeal mucosa clear 06/21/2017 None Full Exam - General 1994 Respiratory auscultation Overall: breath sounds clear bilaterally 06/21/2017 None Full Exam - General 1994 Respiratory respiratory effort/rhythm Overall: no retractions 06/21/2017 None Full Exam - General 1994 Respiratory respiratory effort/rhythm Overall: normal rate 06/21/2017 None Full Exam - General 1994 Cardiovascular extremities Overall: no clubbing 06/21/2017 None Full Exam - General 1994 Cardiovascular auscultation of heart Overall: regular rate 06/21/2017 None Full Exam - General 1994 Cardiovascular auscultation of heart Overall: normal heart sounds 06/21/2017 None Full Exam - General 1994 Abdomen abdominal exam Overall: no tenderness 06/21/2017 None Full Exam - General 1994 Abdomen abdominal exam Overall: normal bowel sounds 06/21/2017 None Full Exam - General 1994 Lymphatic neck nodes Overall: anterior cervical chain benign 06/21/2017 None Full Exam - General 1994 Lymphatic neck nodes Overall: posterior cervical chain benign 06/21/2017 None Full Exam - General 1994 Musculoskeletal spine, ribs and pelvis Posture: kyphosis 06/21/2017 None Full Exam - General 1994 Musculoskeletal spine, ribs and pelvis Spine: tender @ thoracic spine 06/21/2017 None Full Exam - General 1994 Psychiatric orientation/consciousness Overall: oriented to person, place and time 06/21/2017 None Full Exam - General 1994 Psychiatric mood and affect Overall: normal mood and affect 06/21/2017 None Full Exam - General 1994 Psychiatric mood and affect Mood: flat 06/21/2017 None Full Exam - General 1994 Constitutional general appearance Overall: well developed 05/28/2017 None Full Exam - General 1994 Constitutional general appearance Overall: well nourished 05/28/2017 None Full Exam - General 1994 Ears/Nose/Throat otoscopic exam Overall: external auditory canals clear 05/28/2017 None Full Exam - General 1994 Ears/Nose/Throat otoscopic exam Overall: tympanic membranes clear 05/28/2017 None Full Exam - General 1994 Ears/Nose/Throat lips/teeth/gingiva Overall: benign lips 05/28/2017 None Full Exam - General 1994 Ears/Nose/Throat oral cavity/pharynx/larynx Overall: oral mucosa clear 05/28/2017 None Full Exam - General 1994 Ears/Nose/Throat oral cavity/pharynx/larynx Overall: oropharyngeal mucosa clear 05/28/2017 None Full Exam - General 1994 Ears/Nose/Throat oral cavity/pharynx/larynx Overall: no masses 05/28/2017 None Full Exam - General 1994 Respiratory auscultation Overall: breath sounds clear bilaterally 05/28/2017 None Full Exam - General 1994 Respiratory respiratory effort/rhythm Overall: no retractions 05/28/2017 None Full Exam - General 1994 Respiratory respiratory effort/rhythm Overall: normal rate 05/28/2017 None Full Exam - General 1994 Cardiovascular extremities Overall: no clubbing 05/28/2017 None Full Exam - General 1994 Cardiovascular auscultation of heart Overall: regular rate 05/28/2017 None Full Exam - General 1994 Cardiovascular auscultation of heart Overall: normal heart sounds 05/28/2017 None Full Exam - General 1994 Cardiovascular auscultation of heart Overall: no murmurs 05/28/2017 None Full Exam - General 1994 Abdomen abdominal exam Overall: no tenderness 05/28/2017 None Full Exam - General 1994 Abdomen abdominal exam Overall: normal bowel sounds 05/28/2017 None Full Exam - General 1994 Abdomen liver and spleen exam Overall: no hepatosplenomegaly 05/28/2017 None Full Exam - General 1994 Abdomen liver and spleen exam Overall: no stigmata of chronic liver disease 05/28/2017 None Full Exam - General 1994 Lymphatic neck nodes Overall: anterior cervical chain benign 05/28/2017 None Full Exam - General 1994 Lymphatic neck nodes Overall: posterior cervical chain benign 05/28/2017 None Full Exam - General 1994 Musculoskeletal spine, ribs and pelvis Posture: kyphosis 05/28/2017 None Full Exam - General 1994 Musculoskeletal spine, ribs and pelvis Spine: tender @ thoracic spine 05/28/2017 None Full Exam - General 1994 Psychiatric orientation/consciousness Overall: oriented to person, place and time 05/28/2017 None Full Exam - General 1994 Psychiatric mood and affect Overall: normal mood and affect 05/28/2017 None Full Exam - General 1994 Psychiatric mood and affect Mood: flat 05/28/2017 None Full Exam - General 1994 Constitutional general appearance Overall: well developed 05/11/2017 None Full Exam - General 1994 Constitutional general appearance Overall: well nourished 05/11/2017 None Full Exam - General 1994 Ears/Nose/Throat otoscopic exam Overall: external auditory canals clear 05/11/2017 None Full Exam - General 1994 Ears/Nose/Throat otoscopic exam Overall: tympanic membranes clear 05/11/2017 None Full Exam - General 1994 Ears/Nose/Throat lips/teeth/gingiva Overall: benign lips 05/11/2017 None Full Exam - General 1994 Ears/Nose/Throat oral cavity/pharynx/larynx Overall: oral mucosa clear 05/11/2017 None Full Exam - General 1994 Ears/Nose/Throat oral cavity/pharynx/larynx Overall: oropharyngeal mucosa clear 05/11/2017 None Full Exam - General 1994 Ears/Nose/Throat oral cavity/pharynx/larynx Overall: no masses 05/11/2017 None Full Exam - General 1994 Respiratory auscultation Overall: breath sounds clear bilaterally 05/11/2017 None Full Exam - General 1994 Respiratory respiratory effort/rhythm Overall: no retractions 05/11/2017 None Full Exam - General 1994 Respiratory respiratory effort/rhythm Overall: normal rate 05/11/2017 None Full Exam - General 1994 Cardiovascular extremities Overall: no clubbing 05/11/2017 None Full Exam - General 1994 Cardiovascular auscultation of heart Overall: regular rate 05/11/2017 None Full Exam - General 1994 Cardiovascular auscultation of heart Overall: normal heart sounds 05/11/2017 None Full Exam - General 1994 Cardiovascular auscultation of heart Overall: no murmurs 05/11/2017 None Full Exam - General 1994 Abdomen abdominal exam Overall: no tenderness 05/11/2017 None Full Exam - General 1994 Abdomen abdominal exam Overall: normal bowel sounds 05/11/2017 None Full Exam - General 1994 Abdomen liver and spleen exam Overall: no hepatosplenomegaly 05/11/2017 None Full Exam - General 1994 Abdomen liver and spleen exam Overall: no stigmata of chronic liver disease 05/11/2017 None Full Exam - General 1994 Lymphatic neck nodes Overall: anterior cervical chain benign 05/11/2017 None Full Exam - General 1994 Lymphatic neck nodes Overall: posterior cervical chain benign 05/11/2017 None Full Exam - General 1994 Musculoskeletal spine, ribs and pelvis Posture: kyphosis 05/11/2017 None Full Exam - General 1994 Psychiatric orientation/consciousness Overall: oriented to person, place and time 05/11/2017 None Full Exam - General 1994 Psychiatric mood and affect Overall: normal mood and affect 05/11/2017 None Full Exam - General 1994 Psychiatric mood and affect Mood: flat 05/11/2017 None Full Exam - General 1994 Musculoskeletal spine, ribs and pelvis Spine: tender @ thoracic spine 05/11/2017 None Full Exam - General 1994 Constitutional general appearance Overall: well nourished 05/02/2017 None Full Exam - General 1994 Constitutional general appearance Overall: well developed 05/02/2017 None Full Exam - General 1994 Ears/Nose/Throat oral cavity/pharynx/larynx Overall: oropharyngeal mucosa clear 05/02/2017 None Full Exam - General 1994 Ears/Nose/Throat oral cavity/pharynx/larynx Overall: no masses 05/02/2017 None Full Exam - General 1994 Ears/Nose/Throat oral cavity/pharynx/larynx Overall: oral mucosa clear 05/02/2017 None Full Exam - General 1994 Ears/Nose/Throat otoscopic exam Overall: tympanic membranes clear 05/02/2017 None Full Exam - General 1994 Ears/Nose/Throat otoscopic exam Overall: external auditory canals clear 05/02/2017 None Full Exam - General 1994 Ears/Nose/Throat lips/teeth/gingiva Overall: benign lips 05/02/2017 None Full Exam - General 1994 Respiratory respiratory effort/rhythm Overall: normal rate 05/02/2017 None Full Exam - General 1994 Respiratory respiratory effort/rhythm Overall: no retractions 05/02/2017 None Full Exam - General 1994 Respiratory auscultation Overall: breath sounds clear bilaterally 05/02/2017 None Full Exam - General 1994 Cardiovascular auscultation of heart Overall: regular rate 05/02/2017 None Full Exam - General 1994 Cardiovascular auscultation of heart Overall: normal heart sounds 05/02/2017 None Full Exam - General 1994 Cardiovascular auscultation of heart Overall: no murmurs 05/02/2017 None Full Exam - General 1994 Cardiovascular extremities Overall: no clubbing 05/02/2017 None Full Exam - General 1994 Abdomen abdominal exam Overall: no tenderness 05/02/2017 None Full Exam - General 1994 Abdomen abdominal exam Overall: normal bowel sounds 05/02/2017 None Full Exam - General 1994 Abdomen liver and spleen exam Overall: no hepatosplenomegaly 05/02/2017 None Full Exam - General 1994 Abdomen liver and spleen exam Overall: no stigmata of chronic liver disease 05/02/2017 None Full Exam - General 1994 Lymphatic neck nodes Overall: anterior cervical chain benign 05/02/2017 None Full Exam - General 1994 Lymphatic neck nodes Overall: posterior cervical chain benign 05/02/2017 None Full Exam - General 1994 Psychiatric orientation/consciousness Overall: oriented to person, place and time 05/02/2017 None Full Exam - General 1994 Psychiatric mood and affect Overall: normal mood and affect 05/02/2017 None Full Exam - General 1994 Psychiatric mood and affect Mood: flat 05/02/2017 None Full Exam - General 1994 Musculoskeletal spine, ribs and pelvis Posture: kyphosis 05/02/2017 None Full Exam - General 1994 Musculoskeletal spine, ribs and pelvis Sacroiliac joints: tender left sacroiliac joint 05/02/2017 None Full Exam - General 1994 Constitutional general appearance Development: well developed 03/27/2017 None Full Exam - General 1994 Constitutional general appearance Development: appears stated age 0803/27/2017 None Full Exam - General 1994 Constitutional general appearance Stature/Body Habitus: kyphosis 03/27/2017 None Full Exam - General 1994 Constitutional general appearance Nourishment: well nourished 03/27/2017 None Full Exam - General 1994 Constitutional general appearance Evidence of Distress: in no acute distress 03/27/2017 None Full Exam - General 1994 Constitutional general appearance Hygiene/Attention to Grooming: good hygiene 03/27/2017 None Full Exam - General 1994 Constitutional general appearance Assistive Device: walker 03/27/2017 None Full Exam - General 1994 Eyes conjunctiva /eyelids Overall: conjunctiva clear 03/27/2017 None Full Exam - General 1994 Eyes conjunctiva /eyelids Overall: cornea clear 03/27/2017 None Full Exam - General 1994 Eyes conjunctiva /eyelids Overall: eyelids normal 03/27/2017 None Full Exam - General 1994 Eyes pupils and irises Overall: pupils equal, round, reactive to light and accomodation 03/27/2017 None Full Exam - General 1994 Ears/Nose/Throat otoscopic exam Overall: external auditory canals clear 03/27/2017 None Full Exam - General 1994 Ears/Nose/Throat otoscopic exam Overall: tympanic membranes clear 03/27/2017 None Full Exam - General 1994 Ears/Nose/Throat oral cavity/pharynx/larynx Overall: oral mucosa clear 03/27/2017 None Full Exam - General 1994 Ears/Nose/Throat oral cavity/pharynx/larynx Overall: oropharyngeal mucosa clear 03/27/2017 None Full Exam - General 1994 Ears/Nose/Throat oral cavity/pharynx/larynx Overall: no masses 03/27/2017 None Full Exam - General 1994 Respiratory auscultation Overall: breath sounds clear bilaterally 03/27/2017 None Full Exam - General 1994 Respiratory respiratory effort/rhythm Overall: no retractions 03/27/2017 None Full Exam - General 1994 Respiratory respiratory effort/rhythm Overall: normal rate 03/27/2017 None Full Exam - General 1994 Cardiovascular auscultation of heart Overall: regular rate 03/27/2017 None Full Exam - General 1994 Cardiovascular auscultation of heart Overall: normal heart sounds 03/27/2017 None Full Exam - General 1994 Abdomen abdominal exam Overall: no tenderness 03/27/2017 None Full Exam - General 1994 Abdomen abdominal exam Overall: normal bowel sounds 03/27/2017 None Full Exam - General 1994 Musculoskeletal upper extremity ROM - shoulder: decreased abduction 03/27/2017 frozen shoulders bilaterally Full Exam - General 1994 Musculoskeletal spine, ribs and pelvis Posture: kyphoscoliosis 03/27/2017 None Full Exam - General 1994 Musculoskeletal spine, ribs and pelvis Sacroiliac joints: tender right sacroiliac joint 03/27/2017 None Full Exam - General 1994 Musculoskeletal spine, ribs and pelvis Sacroiliac joints: tender left sacroiliac joint 03/27/2017 None Full Exam - General 1994 Musculoskeletal spine, ribs and pelvis Palpation: tender at greater trochanter 03/27/2017 None Full Exam - General 1994 Musculoskeletal head and neck Cervical Spine: deformity 03/27/2017 None Full Exam - General 1994 Integument inspection of skin Overall: few scattered moles, no gross abnormalities 03/27/2017 None Full Exam - General 1994 Neurologic cranial nerves Overall: crainial nerves 2 - 12 grossly intact 03/27/2017 None Full Exam - General 1994 Psychiatric orientation/consciousness Overall: oriented to person, place and time 03/27/2017 None Full Exam - General 1994 Constitutional general appearance Development: well developed 02/26/2017 None Full Exam - General 1994 Constitutional general appearance Development: appears stated age 0702/26/2017 None Full Exam - General 1994 Constitutional general appearance Stature/Body Habitus: kyphosis 02/26/2017 None Full Exam - General 1994 Constitutional general appearance Nourishment: well nourished 02/26/2017 None Full Exam - General 1994 Constitutional general appearance Evidence of Distress: in no acute distress 02/26/2017 None Full Exam - General 1994 Constitutional general appearance Hygiene/Attention to Grooming: good hygiene 02/26/2017 None Full Exam - General 1994 Constitutional general appearance Assistive Device: walker 02/26/2017 None Full Exam - General 1994 Eyes conjunctiva /eyelids Overall: conjunctiva clear 02/26/2017 None Full Exam - General 1994 Eyes conjunctiva /eyelids Overall: cornea clear 02/26/2017 None Full Exam - General 1994 Eyes conjunctiva /eyelids Overall: eyelids normal 02/26/2017 None Full Exam - General 1994 Eyes pupils and irises Overall: pupils equal, round, reactive to light and accomodation 02/26/2017 None Full Exam - General 1994 Ears/Nose/Throat otoscopic exam Overall: external auditory canals clear 02/26/2017 None Full Exam - General 1994 Ears/Nose/Throat otoscopic exam Overall: tympanic membranes clear 02/26/2017 None Full Exam - General 1994 Ears/Nose/Throat oral cavity/pharynx/larynx Overall: oral mucosa clear 02/26/2017 None Full Exam - General 1994 Ears/Nose/Throat oral cavity/pharynx/larynx Overall: oropharyngeal mucosa clear 02/26/2017 None Full Exam - General 1994 Ears/Nose/Throat oral cavity/pharynx/larynx Overall: no masses 02/26/2017 None Full Exam - General 1994 Respiratory auscultation Overall: breath sounds clear bilaterally 02/26/2017 None Full Exam - General 1994 Respiratory respiratory effort/rhythm Overall: no retractions 02/26/2017 None Full Exam - General 1994 Respiratory respiratory effort/rhythm Overall: normal rate 02/26/2017 None Full Exam - General 1994 Cardiovascular auscultation of heart Overall: regular rate 02/26/2017 None Full Exam - General 1994 Cardiovascular auscultation of heart Overall: normal heart sounds 02/26/2017 None Full Exam - General 1994 Abdomen abdominal exam Overall: no tenderness 02/26/2017 None Full Exam - General 1994 Abdomen abdominal exam Overall: normal bowel sounds 02/26/2017 None Full Exam - General 1994 Musculoskeletal upper extremity ROM - shoulder: decreased abduction 02/26/2017 frozen shoulders bilaterally Full Exam - General 1994 Musculoskeletal spine, ribs and pelvis Posture: kyphoscoliosis 02/26/2017 None Full Exam - General 1994 Musculoskeletal head and neck Cervical Spine: deformity 02/26/2017 None Full Exam - General 1994 Neurologic cranial nerves Overall: crainial nerves 2 - 12 grossly intact 02/26/2017 None Full Exam - General 1994 Psychiatric orientation/consciousness Overall: oriented to person, place and time 02/26/2017 None Full Exam - General 1994 Integument inspection of skin Dermatitis: scaling 02/26/2017 mickey dermatitis scalp Full Exam - General 1994 Integument inspection of skin Dermatitis: erythema 02/26/2017 None Full Exam - General 1994 Constitutional general appearance Development: well developed 02/12/2017 None Full Exam - General 1994 Constitutional general appearance Development: appears stated age 0602/12/2017 None Full Exam - General 1994 Constitutional general appearance Stature/Body Habitus: kyphosis 02/12/2017 None Full Exam - General 1994 Constitutional general appearance Nourishment: well nourished 02/12/2017 None Full Exam - General 1994 Constitutional general appearance Evidence of Distress: in no acute distress 02/12/2017 None Full Exam - General 1994 Constitutional general appearance Hygiene/Attention to Grooming: good hygiene 02/12/2017 None Full Exam - General 1994 Constitutional general appearance Assistive Device: walker 02/12/2017 None Full Exam - General 1994 Eyes conjunctiva /eyelids Overall: conjunctiva clear 02/12/2017 None Full Exam - General 1994 Eyes conjunctiva /eyelids Overall: cornea clear 02/12/2017 None Full Exam - General 1994 Eyes conjunctiva /eyelids Overall: eyelids normal 02/12/2017 None Full Exam - General 1994 Eyes pupils and irises Overall: pupils equal, round, reactive to light and accomodation 02/12/2017 None Full Exam - General 1994 Ears/Nose/Throat otoscopic exam Overall: external auditory canals clear 02/12/2017 None Full Exam - General 1994 Ears/Nose/Throat otoscopic exam Overall: tympanic membranes clear 02/12/2017 None Full Exam - General 1994 Ears/Nose/Throat oral cavity/pharynx/larynx Overall: oral mucosa clear 02/12/2017 None Full Exam - General 1994 Ears/Nose/Throat oral cavity/pharynx/larynx Overall: oropharyngeal mucosa clear 02/12/2017 None Full Exam - General 1994 Ears/Nose/Throat oral cavity/pharynx/larynx Overall: no masses 02/12/2017 None Full Exam - General 1994 Respiratory auscultation Overall: breath sounds clear bilaterally 02/12/2017 None Full Exam - General 1994 Respiratory respiratory effort/rhythm Overall: no retractions 02/12/2017 None Full Exam - General 1994 Respiratory respiratory effort/rhythm Overall: normal rate 02/12/2017 None Full Exam - General 1994 Cardiovascular auscultation of heart Overall: regular rate 02/12/2017 None Full Exam - General 1994 Cardiovascular auscultation of heart Overall: normal heart sounds 02/12/2017 None Full Exam - General 1994 Abdomen abdominal exam Overall: no tenderness 02/12/2017 None Full Exam - General 1994 Abdomen abdominal exam Overall: normal bowel sounds 02/12/2017 None Full Exam - General 1994 Musculoskeletal upper extremity ROM - shoulder: decreased abduction 02/12/2017 frozen shoulders bilaterally Full Exam - General 1994 Musculoskeletal spine, ribs and pelvis Posture: kyphoscoliosis 02/12/2017 None Full Exam - General 1994 Musculoskeletal head and neck Cervical Spine: deformity 02/12/2017 None Full Exam - General 1994 Integument inspection of skin Overall: few scattered moles, no gross abnormalities 02/12/2017 None Full Exam - General 1994 Neurologic cranial nerves Overall: crainial nerves 2 - 12 grossly intact 02/12/2017 None Full Exam - General 1994 Psychiatric orientation/consciousness Overall: oriented to person, place and time 02/12/2017 None Full Exam - General 1994 Constitutional general appearance Development: well developed 11/23/2016 None Full Exam - General 1994 Constitutional general appearance Development: appears stated age 0411/23/2016 None Full Exam - General 1994 Constitutional general appearance Stature/Body Habitus: kyphosis 11/23/2016 None Full Exam - General 1994 Constitutional general appearance Nourishment: well nourished 11/23/2016 None Full Exam - General 1994 Constitutional general appearance Evidence of Distress: in no acute distress 11/23/2016 None Full Exam - General 1994 Constitutional general appearance Hygiene/Attention to Grooming: good hygiene 11/23/2016 None Full Exam - General 1994 Constitutional general appearance Assistive Device: walker 11/23/2016 None Full Exam - General 1994 Eyes conjunctiva /eyelids Overall: conjunctiva clear 11/23/2016 None Full Exam - General 1994 Eyes conjunctiva /eyelids Overall: cornea clear 11/23/2016 None Full Exam - General 1994 Eyes conjunctiva /eyelids Overall: eyelids normal 11/23/2016 None Full Exam - General 1994 Eyes pupils and irises Overall: pupils equal, round, reactive to light and accomodation 11/23/2016 None Full Exam - General 1994 Ears/Nose/Throat otoscopic exam Overall: external auditory canals clear 11/23/2016 None Full Exam - General 1994 Ears/Nose/Throat otoscopic exam Overall: tympanic membranes clear 11/23/2016 None Full Exam - General 1994 Ears/Nose/Throat oral cavity/pharynx/larynx Overall: oral mucosa clear 11/23/2016 None Full Exam - General 1994 Ears/Nose/Throat oral cavity/pharynx/larynx Overall: oropharyngeal mucosa clear 11/23/2016 None Full Exam - General 1994 Ears/Nose/Throat oral cavity/pharynx/larynx Overall: no masses 11/23/2016 None Full Exam - General 1994 Respiratory auscultation Overall: breath sounds clear bilaterally 11/23/2016 None Full Exam - General 1994 Respiratory respiratory effort/rhythm Overall: no retractions 11/23/2016 None Full Exam - General 1994 Respiratory respiratory effort/rhythm Overall: normal rate 11/23/2016 None Full Exam - General 1994 Cardiovascular auscultation of heart Overall: regular rate 11/23/2016 None Full Exam - General 1994 Cardiovascular auscultation of heart Overall: normal heart sounds 11/23/2016 None Full Exam - General 1994 Musculoskeletal upper extremity ROM - shoulder: decreased abduction 11/23/2016 frozen shoulders bilaterally Full Exam - General 1994 Musculoskeletal spine, ribs and pelvis Posture: kyphoscoliosis 11/23/2016 None Full Exam - General 1994 Musculoskeletal spine, ribs and pelvis Sacroiliac joints: tender right sacroiliac joint 11/23/2016 None Full Exam - General 1994 Musculoskeletal spine, ribs and pelvis Sacroiliac joints: tender left sacroiliac joint 11/23/2016 None Full Exam - General 1994 Musculoskeletal spine, ribs and pelvis Palpation: tender at greater trochanter 11/23/2016 None Full Exam - General 1994 Musculoskeletal head and neck Cervical Spine: deformity 11/23/2016 None Full Exam - General 1994 Integument inspection of skin Overall: few scattered moles, no gross abnormalities 11/23/2016 None Full Exam - General 1994 Neurologic cranial nerves Overall: crainial nerves 2 - 12 grossly intact 11/23/2016 None Full Exam - General 1994 Psychiatric orientation/consciousness Overall: oriented to person, place and time 11/23/2016 None Full Exam - General 1994 Abdomen abdominal exam Overall: no tenderness 11/23/2016 None Full Exam - General 1994 Abdomen abdominal exam Overall: normal bowel sounds 11/23/2016 None Full Exam - General 1994 Constitutional general appearance Overall: well developed 11/06/2016 None Full Exam - General 1994 Constitutional general appearance Overall: in no acute distress 11/06/2016 None Full Exam - General 1994 Constitutional general appearance Overall: well nourished 11/06/2016 None Full Exam - General 1994 Constitutional general appearance Stature/Body Habitus: kyphosis 11/06/2016 None Full Exam - General 1994 Constitutional general appearance Hygiene/Attention to Grooming: good hygiene 11/06/2016 None Full Exam - General 1994 Eyes conjunctiva /eyelids Overall: conjunctiva clear 11/06/2016 None Full Exam - General 1994 Eyes conjunctiva /eyelids Overall: eyelids normal 11/06/2016 None Full Exam - General 1994 Ears/Nose/Throat otoscopic exam Overall: external auditory canals clear 11/06/2016 None Full Exam - General 1994 Ears/Nose/Throat otoscopic exam Overall: tympanic membranes clear 11/06/2016 None Full Exam - General 1994 Ears/Nose/Throat lips/teeth/gingiva Overall: benign lips 11/06/2016 None Full Exam - General 1994 Ears/Nose/Throat oral cavity/pharynx/larynx Overall: oral mucosa clear 11/06/2016 None Full Exam - General 1994 Ears/Nose/Throat oral cavity/pharynx/larynx Overall: oropharyngeal mucosa clear 11/06/2016 None Full Exam - General 1994 Ears/Nose/Throat oral cavity/pharynx/larynx Overall: no masses 11/06/2016 None Full Exam - General 1994 Respiratory auscultation Overall: breath sounds clear bilaterally 11/06/2016 None Full Exam - General 1994 Respiratory auscultation Diffuse: diminished 11/06/2016 None Full Exam - General 1994 Respiratory respiratory effort/rhythm Overall: no retractions 11/06/2016 None Full Exam - General 1994 Respiratory respiratory effort/rhythm Overall: normal rate 11/06/2016 None Full Exam - General 1994 Cardiovascular auscultation of heart Overall: regular rate 11/06/2016 None Full Exam - General 1994 Cardiovascular auscultation of heart Overall: normal heart sounds 11/06/2016 None Full Exam - General 1994 Musculoskeletal spine, ribs and pelvis Posture: kyphoscoliosis 11/06/2016 None Full Exam - General 1994 Neurologic cranial nerves Overall: crainial nerves 2 - 12 grossly intact 11/06/2016 None Full Exam - General 1994 Psychiatric orientation/consciousness Overall: oriented to person, place and time 11/06/2016 None Full Exam - General 1994 Psychiatric mood and affect Overall: normal mood and affect 11/06/2016 None Full Exam - General 1994 Psychiatric appearance Overall: well-groomed, good eye contact 11/06/2016 None Full Exam - General 1994 Constitutional general appearance Assistive Device: wheelchair 11/06/2016 None Full Exam - General 1994 Integument inspection of skin Location: scalp 11/06/2016 None Full Exam - General 1994 Integument inspection of skin Dermatitis: scaling 11/06/2016 None Full Exam - General 1994 Integument inspection of skin Dermatitis: dryness/ flaking 11/06/2016 None Full Exam - General 1994 Constitutional general appearance Overall: well developed 10/05/2016 None Full Exam - General 1994 Constitutional general appearance Overall: in no acute distress 10/05/2016 None Full Exam - General 1994 Constitutional general appearance Overall: well nourished 10/05/2016 None Full Exam - General 1994 Constitutional general appearance Stature/Body Habitus: kyphosis 10/05/2016 None Full Exam - General 1994 Constitutional general appearance Hygiene/Attention to Grooming: good hygiene 10/05/2016 None Full Exam - General 1994 Constitutional general appearance Assistive Device: walker 10/05/2016 None Full Exam - General 1994 Eyes conjunctiva /eyelids Overall: conjunctiva clear 10/05/2016 None Full Exam - General 1994 Eyes conjunctiva /eyelids Overall: eyelids normal 10/05/2016 None Full Exam - General 1994 Ears/Nose/Throat otoscopic exam Overall: external auditory canals clear 10/05/2016 None Full Exam - General 1994 Ears/Nose/Throat otoscopic exam Overall: tympanic membranes clear 10/05/2016 None Full Exam - General 1994 Ears/Nose/Throat lips/teeth/gingiva Overall: benign lips 10/05/2016 None Full Exam - General 1994 Ears/Nose/Throat oral cavity/pharynx/larynx Overall: oral mucosa clear 10/05/2016 None Full Exam - General 1994 Ears/Nose/Throat oral cavity/pharynx/larynx Overall: oropharyngeal mucosa clear 10/05/2016 None Full Exam - General 1994 Ears/Nose/Throat oral cavity/pharynx/larynx Overall: no masses 10/05/2016 None Full Exam - General 1994 Respiratory auscultation Overall: breath sounds clear bilaterally 10/05/2016 None Full Exam - General 1994 Respiratory respiratory effort/rhythm Overall: no retractions 10/05/2016 None Full Exam - General 1994 Respiratory respiratory effort/rhythm Overall: normal rate 10/05/2016 None Full Exam - General 1994 Cardiovascular auscultation of heart Overall: regular rate 10/05/2016 None Full Exam - General 1994 Abdomen abdominal exam Overall: no tenderness 10/05/2016 None Full Exam - General 1994 Musculoskeletal spine, ribs and pelvis Posture: kyphoscoliosis 10/05/2016 None Full Exam - General 1994 Musculoskeletal head and neck Cervical Spine: deformity 10/05/2016 None Full Exam - General 1994 Neurologic cranial nerves Overall: crainial nerves 2 - 12 grossly intact 10/05/2016 None Full Exam - General 1994 Psychiatric orientation/consciousness Overall: oriented to person, place and time 10/05/2016 None Full Exam - General 1994 Psychiatric mood and affect Overall: normal mood and affect 10/05/2016 None Full Exam - General 1994 Psychiatric appearance Overall: well-groomed, good eye contact 10/05/2016 None Full Exam - General 1994 Abdomen abdominal exam Overall: normal bowel sounds 10/05/2016 None Full Exam - General 1994 Cardiovascular auscultation of heart Overall: normal heart sounds 10/05/2016 None Full Exam - General 1994 Respiratory auscultation Diffuse: diminished 10/05/2016 None Full Exam - General 1994 Constitutional general appearance Stature/Body Habitus: kyphosis 09/14/2016 None Full Exam - General 1994 Constitutional general appearance Hygiene/Attention to Grooming: good hygiene 09/14/2016 None Full Exam - General 1994 Eyes conjunctiva /eyelids Overall: conjunctiva clear 09/14/2016 None Full Exam - General 1994 Eyes conjunctiva /eyelids Overall: eyelids normal 09/14/2016 None Full Exam - General 1994 Eyes pupils and irises Overall: pupils equal, round, reactive to light and accomodation 09/14/2016 None Full Exam - General 1994 Ears/Nose/Throat otoscopic exam Overall: external auditory canals clear 09/14/2016 None Full Exam - General 1994 Ears/Nose/Throat otoscopic exam Overall: tympanic membranes clear 09/14/2016 None Full Exam - General 1994 Ears/Nose/Throat oral cavity/pharynx/larynx Overall: oral mucosa clear 09/14/2016 None Full Exam - General 1994 Ears/Nose/Throat oral cavity/pharynx/larynx Overall: oropharyngeal mucosa clear 09/14/2016 None Full Exam - General 1994 Ears/Nose/Throat oral cavity/pharynx/larynx Overall: no masses 09/14/2016 None Full Exam - General 1994 Respiratory auscultation Overall: breath sounds clear bilaterally 09/14/2016 None Full Exam - General 1994 Respiratory respiratory effort/rhythm Overall: no retractions 09/14/2016 None Full Exam - General 1994 Respiratory respiratory effort/rhythm Overall: normal rate 09/14/2016 None Full Exam - General 1994 Cardiovascular auscultation of heart Overall: regular rate 09/14/2016 None Full Exam - General 1994 Cardiovascular auscultation of heart Overall: normal heart sounds 09/14/2016 None Full Exam - General 1994 Abdomen abdominal exam Overall: no tenderness 09/14/2016 None Full Exam - General 1994 Abdomen abdominal exam Overall: normal bowel sounds 09/14/2016 None Full Exam - General 1994 Musculoskeletal spine, ribs and pelvis Posture: kyphoscoliosis 09/14/2016 None Full Exam - General 1994 Musculoskeletal head and neck Cervical Spine: deformity 09/14/2016 None Full Exam - General 1994 Neurologic cranial nerves Overall: crainial nerves 2 - 12 grossly intact 09/14/2016 None Full Exam - General 1994 Psychiatric orientation/consciousness Overall: oriented to person, place and time 09/14/2016 None Full Exam - General 1994 Constitutional general appearance Overall: well developed 09/14/2016 None Full Exam - General 1994 Constitutional general appearance Overall: in no acute distress 09/14/2016 None Full Exam - General 1994 Constitutional general appearance Overall: well nourished 09/14/2016 None Full Exam - General 1994 Constitutional general appearance Assistive Device: walker 09/14/2016 None Full Exam - General 1994 Ears/Nose/Throat lips/teeth/gingiva Overall: benign lips 09/14/2016 None Full Exam - General 1994 Psychiatric mood and affect Overall: normal mood and affect 09/14/2016 None Full Exam - General 1994 Psychiatric appearance Overall: well-groomed, good eye contact 09/14/2016 None Full Exam - General 1994 Constitutional general appearance Development: well developed 07/25/2016 None Full Exam - General 1994 Constitutional general appearance Development: appears stated age 1207/25/2016 None Full Exam - General 1994 Constitutional general appearance Stature/Body Habitus: kyphosis 07/25/2016 None Full Exam - General 1994 Constitutional general appearance Nourishment: well nourished 07/25/2016 None Full Exam - General 1994 Constitutional general appearance Evidence of Distress: in no acute distress 07/25/2016 None Full Exam - General 1994 Constitutional general appearance Hygiene/Attention to Grooming: good hygiene 07/25/2016 None Full Exam - General 1994 Constitutional general appearance Assistive Device: walker 07/25/2016 None Full Exam - General 1994 Eyes conjunctiva /eyelids Overall: conjunctiva clear 07/25/2016 None Full Exam - General 1994 Eyes conjunctiva /eyelids Overall: cornea clear 07/25/2016 None Full Exam - General 1994 Eyes conjunctiva /eyelids Overall: eyelids normal 07/25/2016 None Full Exam - General 1994 Eyes pupils and irises Overall: pupils equal, round, reactive to light and accomodation 07/25/2016 None Full Exam - General 1994 Ears/Nose/Throat otoscopic exam Overall: external auditory canals clear 07/25/2016 None Full Exam - General 1994 Ears/Nose/Throat otoscopic exam Overall: tympanic membranes clear 07/25/2016 None Full Exam - General 1994 Ears/Nose/Throat oral cavity/pharynx/larynx Overall: oral mucosa clear 07/25/2016 None Full Exam - General 1994 Ears/Nose/Throat oral cavity/pharynx/larynx Overall: oropharyngeal mucosa clear 07/25/2016 None Full Exam - General 1994 Ears/Nose/Throat oral cavity/pharynx/larynx Overall: no masses 07/25/2016 None Full Exam - General 1994 Respiratory auscultation Overall: breath sounds clear bilaterally 07/25/2016 None Full Exam - General 1994 Respiratory respiratory effort/rhythm Overall: no retractions 07/25/2016 None Full Exam - General 1994 Respiratory respiratory effort/rhythm Overall: normal rate 07/25/2016 None Full Exam - General 1994 Cardiovascular auscultation of heart Overall: regular rate 07/25/2016 None Full Exam - General 1994 Cardiovascular auscultation of heart Overall: normal heart sounds 07/25/2016 None Full Exam - General 1994 Abdomen abdominal exam Overall: no tenderness 07/25/2016 None Full Exam - General 1994 Abdomen abdominal exam Overall: normal bowel sounds 07/25/2016 None Full Exam - General 1994 Musculoskeletal spine, ribs and pelvis Posture: kyphoscoliosis 07/25/2016 None Full Exam - General 1994 Musculoskeletal head and neck Cervical Spine: deformity 07/25/2016 None Full Exam - General 1994 Neurologic cranial nerves Overall: crainial nerves 2 - 12 grossly intact 07/25/2016 None Full Exam - General 1994 Psychiatric orientation/consciousness Overall: oriented to person, place and time 07/25/2016 None Full Exam - General 1994 Integument inspection of skin Location: shoulder 07/25/2016 top of left and right shoulders Full Exam - General 1994 Integument inspection of skin Dermatitis: erythema 07/25/2016 None Full Exam - General 1994 Integument inspection of skin Rash/Lesions: patch 07/25/2016 None Full Exam - General 1994 Constitutional general appearance Development: well developed 06/13/2016 None Full Exam - General 1994 Constitutional general appearance Development: appears stated age 1006/13/2016 None Full Exam - General 1994 Constitutional general appearance Stature/Body Habitus: kyphosis 06/13/2016 None Full Exam - General 1994 Constitutional general appearance Nourishment: well nourished 06/13/2016 None Full Exam - General 1994 Constitutional general appearance Evidence of Distress: in no acute distress 06/13/2016 None Full Exam - General 1994 Constitutional general appearance Hygiene/Attention to Grooming: good hygiene 06/13/2016 None Full Exam - General 1994 Constitutional general appearance Assistive Device: walker 06/13/2016 None Full Exam - General 1994 Eyes conjunctiva /eyelids Overall: conjunctiva clear 06/13/2016 None Full Exam - General 1994 Eyes conjunctiva /eyelids Overall: cornea clear 06/13/2016 None Full Exam - General 1994 Eyes conjunctiva /eyelids Overall: eyelids normal 06/13/2016 None Full Exam - General 1994 Eyes pupils and irises Overall: pupils equal, round, reactive to light and accomodation 06/13/2016 None Full Exam - General 1994 Ears/Nose/Throat otoscopic exam Overall: external auditory canals clear 06/13/2016 None Full Exam - General 1994 Ears/Nose/Throat otoscopic exam Overall: tympanic membranes clear 06/13/2016 None Full Exam - General 1994 Ears/Nose/Throat oral cavity/pharynx/larynx Overall: oral mucosa clear 06/13/2016 None Full Exam - General 1994 Ears/Nose/Throat oral cavity/pharynx/larynx Overall: oropharyngeal mucosa clear 06/13/2016 None Full Exam - General 1994 Ears/Nose/Throat oral cavity/pharynx/larynx Overall: no masses 06/13/2016 None Full Exam - General 1994 Respiratory auscultation Overall: breath sounds clear bilaterally 06/13/2016 None Full Exam - General 1994 Respiratory respiratory effort/rhythm Overall: no retractions 06/13/2016 None Full Exam - General 1994 Respiratory respiratory effort/rhythm Overall: normal rate 06/13/2016 None Full Exam - General 1994 Cardiovascular auscultation of heart Overall: regular rate 06/13/2016 None Full Exam - General 1994 Cardiovascular auscultation of heart Overall: normal heart sounds 06/13/2016 None Full Exam - General 1994 Musculoskeletal spine, ribs and pelvis Posture: kyphoscoliosis 06/13/2016 None Full Exam - General 1994 Musculoskeletal head and neck Cervical Spine: deformity 06/13/2016 None Full Exam - General 1994 Integument inspection of skin Overall: few scattered moles, no gross abnormalities 06/13/2016 None Full Exam - General 1994 Neurologic cranial nerves Overall: crainial nerves 2 - 12 grossly intact 06/13/2016 None Full Exam - General 1994 Psychiatric orientation/consciousness Overall: oriented to person, place and time 06/13/2016 None Full Exam - General 1994 Abdomen abdominal exam Overall: no tenderness 06/13/2016 None Full Exam - General 1994 Abdomen abdominal exam Overall: normal bowel sounds 06/13/2016 None Full Exam - General 1994 Constitutional general appearance Development: well developed 04/26/2016 None Full Exam - General 1994 Constitutional general appearance Development: appears stated age 0904/26/2016 None Full Exam - General 1994 Constitutional general appearance Stature/Body Habitus: kyphosis 04/26/2016 None Full Exam - General 1994 Constitutional general appearance Nourishment: well nourished 04/26/2016 None Full Exam - General 1994 Constitutional general appearance Evidence of Distress: in no acute distress 04/26/2016 None Full Exam - General 1994 Constitutional general appearance Hygiene/Attention to Grooming: good hygiene 04/26/2016 None Full Exam - General 1994 Constitutional general appearance Assistive Device: walker 04/26/2016 None Full Exam - General 1994 Eyes conjunctiva /eyelids Overall: conjunctiva clear 04/26/2016 None Full Exam - General 1994 Eyes conjunctiva /eyelids Overall: cornea clear 04/26/2016 None Full Exam - General 1994 Eyes conjunctiva /eyelids Overall: eyelids normal 04/26/2016 None Full Exam - General 1994 Eyes pupils and irises Overall: pupils equal, round, reactive to light and accomodation 04/26/2016 None Full Exam - General 1994 Ears/Nose/Throat otoscopic exam Overall: external auditory canals clear 04/26/2016 None Full Exam - General 1994 Ears/Nose/Throat otoscopic exam Overall: tympanic membranes clear 04/26/2016 None Full Exam - General 1994 Ears/Nose/Throat oral cavity/pharynx/larynx Overall: oral mucosa clear 04/26/2016 None Full Exam - General 1994 Ears/Nose/Throat oral cavity/pharynx/larynx Overall: oropharyngeal mucosa clear 04/26/2016 None Full Exam - General 1994 Ears/Nose/Throat oral cavity/pharynx/larynx Overall: no masses 04/26/2016 None Full Exam - General 1994 Respiratory auscultation Overall: breath sounds clear bilaterally 04/26/2016 None Full Exam - General 1994 Respiratory respiratory effort/rhythm Overall: no retractions 04/26/2016 None Full Exam - General 1994 Respiratory respiratory effort/rhythm Overall: normal rate 04/26/2016 None Full Exam - General 1994 Cardiovascular auscultation of heart Overall: regular rate 04/26/2016 None Full Exam - General 1994 Cardiovascular auscultation of heart Overall: normal heart sounds 04/26/2016 None Full Exam - General 1994 Musculoskeletal upper extremity ROM - shoulder: decreased abduction 04/26/2016 frozen shoulders bilaterally Full Exam - General 1994 Musculoskeletal spine, ribs and pelvis Posture: kyphoscoliosis 04/26/2016 None Full Exam - General 1994 Musculoskeletal spine, ribs and pelvis Sacroiliac joints: tender right sacroiliac joint 04/26/2016 None Full Exam - General 1994 Musculoskeletal spine, ribs and pelvis Sacroiliac joints: tender left sacroiliac joint 04/26/2016 None Full Exam - General 1994 Musculoskeletal spine, ribs and pelvis Palpation: tender at greater trochanter 04/26/2016 None Full Exam - General 1994 Musculoskeletal head and neck Cervical Spine: deformity 04/26/2016 None Full Exam - General 1994 Integument inspection of skin Overall: few scattered moles, no gross abnormalities 04/26/2016 None Full Exam - General 1994 Neurologic cranial nerves Overall: crainial nerves 2 - 12 grossly intact 04/26/2016 None Full Exam - General 1994 Psychiatric orientation/consciousness Overall: oriented to person, place and time 04/26/2016 None Full Exam - General 1994 Abdomen abdominal exam Overall: no tenderness 04/26/2016 None Full Exam - General 1994 Abdomen abdominal exam Overall: normal bowel sounds 04/26/2016 None Full Exam - General 1994 Constitutional general appearance Development: well developed 04/17/2016 None Full Exam - General 1994 Constitutional general appearance Development: appears stated age 0804/17/2016 None Full Exam - General 1994 Constitutional general appearance Stature/Body Habitus: kyphosis 04/17/2016 None Full Exam - General 1994 Constitutional general appearance Hygiene/Attention to Grooming: good hygiene 04/17/2016 None Full Exam - General 1994 Eyes conjunctiva /eyelids Overall: conjunctiva clear 04/17/2016 None Full Exam - General 1994 Eyes conjunctiva /eyelids Overall: cornea clear 04/17/2016 None Full Exam - General 1994 Eyes conjunctiva /eyelids Overall: eyelids normal 04/17/2016 None Full Exam - General 1994 Eyes pupils and irises Overall: pupils equal, round, reactive to light and accomodation 04/17/2016 None Full Exam - General 1994 Ears/Nose/Throat oral cavity/pharynx/larynx Overall: oral mucosa clear 04/17/2016 None Full Exam - General 1994 Respiratory auscultation Overall: breath sounds clear bilaterally 04/17/2016 None Full Exam - General 1994 Respiratory respiratory effort/rhythm Overall: no retractions 04/17/2016 None Full Exam - General 1994 Respiratory respiratory effort/rhythm Overall: normal rate 04/17/2016 None Full Exam - General 1994 Cardiovascular auscultation of heart Overall: regular rate 04/17/2016 None Full Exam - General 1994 Cardiovascular auscultation of heart Overall: normal heart sounds 04/17/2016 None Full Exam - General 1994 Musculoskeletal spine, ribs and pelvis Posture: kyphoscoliosis 04/17/2016 None Full Exam - General 1994 Musculoskeletal spine, ribs and pelvis Sacroiliac joints: tender right sacroiliac joint 04/17/2016 None Full Exam - General 1994 Musculoskeletal spine, ribs and pelvis Sacroiliac joints: tender left sacroiliac joint 04/17/2016 None Full Exam - General 1994 Musculoskeletal spine, ribs and pelvis Palpation: tender at greater trochanter 04/17/2016 None Full Exam - General 1994 Neurologic cranial nerves Overall: crainial nerves 2 - 12 grossly intact 04/17/2016 None Full Exam - General 1994 Psychiatric orientation/consciousness Overall: oriented to person, place and time 04/17/2016 None Full Exam - General 1994 Constitutional general appearance Evidence of Distress: in no acute distress 04/17/2016 None Full Exam - General 1994 Ears/Nose/Throat lips/teeth/gingiva Overall: benign lips 04/17/2016 None Full Exam - General 1994 Psychiatric mood and affect Overall: normal mood and affect 04/17/2016 None Full Exam - General 1994 Constitutional general appearance Development: well developed 02/03/2016 None Full Exam - General 1994 Constitutional general appearance Development: appears stated age 0602/03/2016 None Full Exam - General 1994 Constitutional general appearance Stature/Body Habitus: kyphosis 02/03/2016 None Full Exam - General 1994 Constitutional general appearance Nourishment: well nourished 02/03/2016 None Full Exam - General 1994 Constitutional general appearance Evidence of Distress: in no acute distress 02/03/2016 None Full Exam - General 1994 Constitutional general appearance Hygiene/Attention to Grooming: good hygiene 02/03/2016 None Full Exam - General 1994 Constitutional general appearance Assistive Device: walker 02/03/2016 None Full Exam - General 1994 Eyes conjunctiva /eyelids Overall: conjunctiva clear 02/03/2016 None Full Exam - General 1994 Eyes conjunctiva /eyelids Overall: cornea clear 02/03/2016 None Full Exam - General 1994 Eyes conjunctiva /eyelids Overall: eyelids normal 02/03/2016 None Full Exam - General 1994 Eyes pupils and irises Overall: pupils equal, round, reactive to light and accomodation 02/03/2016 None Full Exam - General 1994 Ears/Nose/Throat otoscopic exam Overall: external auditory canals clear 02/03/2016 None Full Exam - General 1994 Ears/Nose/Throat otoscopic exam Overall: tympanic membranes clear 02/03/2016 None Full Exam - General 1994 Ears/Nose/Throat oral cavity/pharynx/larynx Overall: oral mucosa clear 02/03/2016 None Full Exam - General 1994 Ears/Nose/Throat oral cavity/pharynx/larynx Overall: oropharyngeal mucosa clear 02/03/2016 None Full Exam - General 1994 Ears/Nose/Throat oral cavity/pharynx/larynx Overall: no masses 02/03/2016 None Full Exam - General 1994 Respiratory auscultation Overall: breath sounds clear bilaterally 02/03/2016 None Full Exam - General 1994 Respiratory respiratory effort/rhythm Overall: no retractions 02/03/2016 None Full Exam - General 1994 Respiratory respiratory effort/rhythm Overall: normal rate 02/03/2016 None Full Exam - General 1994 Cardiovascular auscultation of heart Overall: regular rate 02/03/2016 None Full Exam - General 1994 Cardiovascular auscultation of heart Overall: normal heart sounds 02/03/2016 None Full Exam - General 1994 Musculoskeletal upper extremity ROM - shoulder: decreased abduction 02/03/2016 frozen shoulders bilaterally Full Exam - General 1994 Musculoskeletal spine, ribs and pelvis Posture: kyphoscoliosis 02/03/2016 None Full Exam - General 1994 Musculoskeletal head and neck Cervical Spine: deformity 02/03/2016 None Full Exam - General 1994 Integument inspection of skin Overall: few scattered moles, no gross abnormalities 02/03/2016 None Full Exam - General 1994 Neurologic cranial nerves Overall: crainial nerves 2 - 12 grossly intact 02/03/2016 None Full Exam - General 1994 Psychiatric orientation/consciousness Overall: oriented to person, place and time 02/03/2016 None Full Exam - General 1994 Musculoskeletal spine, ribs and pelvis Sacroiliac joints: tender left sacroiliac joint 02/03/2016 None Full Exam - General 1994 Musculoskeletal spine, ribs and pelvis Sacroiliac joints: tender right sacroiliac joint 02/03/2016 None Full Exam - General 1994 Musculoskeletal spine, ribs and pelvis Palpation: tender at greater trochanter 02/03/2016 None Full Exam - General 1994 Constitutional general appearance Development: well developed 01/19/2016 None Full Exam - General 1994 Constitutional general appearance Development: appears stated age 0601/19/2016 None Full Exam - General 1994 Constitutional general appearance Stature/Body Habitus: kyphosis 01/19/2016 None Full Exam - General 1994 Constitutional general appearance Nourishment: well nourished 01/19/2016 None Full Exam - General 1994 Constitutional general appearance Evidence of Distress: in no acute distress 01/19/2016 None Full Exam - General 1994 Constitutional general appearance Hygiene/Attention to Grooming: good hygiene 01/19/2016 None Full Exam - General 1994 Constitutional general appearance Assistive Device: walker 01/19/2016 None Full Exam - General 1994 Eyes conjunctiva /eyelids Overall: conjunctiva clear 01/19/2016 None Full Exam - General 1994 Eyes conjunctiva /eyelids Overall: cornea clear 01/19/2016 None Full Exam - General 1994 Eyes conjunctiva /eyelids Overall: eyelids normal 01/19/2016 None Full Exam - General 1994 Eyes pupils and irises Overall: pupils equal, round, reactive to light and accomodation 01/19/2016 None Full Exam - General 1994 Ears/Nose/Throat otoscopic exam Overall: external auditory canals clear 01/19/2016 None Full Exam - General 1994 Ears/Nose/Throat otoscopic exam Overall: tympanic membranes clear 01/19/2016 None Full Exam - General 1994 Ears/Nose/Throat oral cavity/pharynx/larynx Overall: oral mucosa clear 01/19/2016 None Full Exam - General 1994 Ears/Nose/Throat oral cavity/pharynx/larynx Overall: oropharyngeal mucosa clear 01/19/2016 None Full Exam - General 1994 Ears/Nose/Throat oral cavity/pharynx/larynx Overall: no masses 01/19/2016 None Full Exam - General 1994 Respiratory auscultation Overall: breath sounds clear bilaterally 01/19/2016 None Full Exam - General 1994 Respiratory respiratory effort/rhythm Overall: no retractions 01/19/2016 None Full Exam - General 1994 Respiratory respiratory effort/rhythm Overall: normal rate 01/19/2016 None Full Exam - General 1994 Cardiovascular auscultation of heart Overall: regular rate 01/19/2016 None Full Exam - General 1994 Cardiovascular auscultation of heart Overall: normal heart sounds 01/19/2016 None Full Exam - General 1994 Abdomen abdominal exam Overall: no tenderness 01/19/2016 None Full Exam - General 1994 Abdomen abdominal exam Overall: normal bowel sounds 01/19/2016 None Full Exam - General 1994 Lymphatic neck nodes Overall: anterior cervical chain benign 01/19/2016 None Full Exam - General 1994 Lymphatic neck nodes Overall: posterior cervical chain benign 01/19/2016 None Full Exam - General 1994 Musculoskeletal upper extremity ROM - shoulder: decreased abduction 01/19/2016 frozen shoulders bilaterally Full Exam - General 1994 Musculoskeletal spine, ribs and pelvis Posture: kyphoscoliosis 01/19/2016 None Full Exam - General 1994 Musculoskeletal head and neck Cervical Spine: deformity 01/19/2016 None Full Exam - General 1994 Integument inspection of skin Overall: few scattered moles, no gross abnormalities 01/19/2016 None Full Exam - General 1994 Neurologic cranial nerves Overall: crainial nerves 2 - 12 grossly intact 01/19/2016 None Full Exam - General 1994 Psychiatric orientation/consciousness Overall: oriented to person, place and time 01/19/2016 None Full Exam - General 1994 Constitutional general appearance Development: well developed 11/04/2015 None Full Exam - General 1994 Constitutional general appearance Development: appears stated age 0311/04/2015 None Full Exam - General 1994 Constitutional general appearance Stature/Body Habitus: kyphosis 11/04/2015 None Full Exam - General 1994 Constitutional general appearance Nourishment: well nourished 11/04/2015 None Full Exam - General 1994 Constitutional general appearance Evidence of Distress: in no acute distress 11/04/2015 None Full Exam - General 1994 Constitutional general appearance Hygiene/Attention to Grooming: good hygiene 11/04/2015 None Full Exam - General 1994 Eyes conjunctiva /eyelids Overall: conjunctiva clear 11/04/2015 None Full Exam - General 1994 Eyes conjunctiva /eyelids Overall: cornea clear 11/04/2015 None Full Exam - General 1994 Eyes conjunctiva /eyelids Overall: eyelids normal 11/04/2015 None Full Exam - General 1994 Ears/Nose/Throat otoscopic exam Overall: external auditory canals clear 11/04/2015 None Full Exam - General 1994 Ears/Nose/Throat otoscopic exam Overall: tympanic membranes clear 11/04/2015 None Full Exam - General 1994 Respiratory auscultation Overall: breath sounds clear bilaterally 11/04/2015 None Full Exam - General 1994 Respiratory respiratory effort/rhythm Overall: no retractions 11/04/2015 None Full Exam - General 1994 Respiratory respiratory effort/rhythm Overall: normal rate 11/04/2015 None Full Exam - General 1994 Cardiovascular auscultation of heart Overall: regular rate 11/04/2015 None Full Exam - General 1994 Cardiovascular auscultation of heart Overall: normal heart sounds 11/04/2015 None Full Exam - General 1994 Abdomen abdominal exam Overall: no tenderness 11/04/2015 None Full Exam - General 1994 Abdomen abdominal exam Overall: normal bowel sounds 11/04/2015 None Full Exam - General 1994 Musculoskeletal spine, ribs and pelvis Posture: kyphoscoliosis 11/04/2015 None Full Exam - General 1994 Musculoskeletal head and neck Cervical Spine: deformity 11/04/2015 None Full Exam - General 1994 Integument inspection of skin Overall: few scattered moles, no gross abnormalities 11/04/2015 None Full Exam - General 1994 Neurologic cranial nerves Overall: crainial nerves 2 - 12 grossly intact 11/04/2015 None Full Exam - General 1994 Psychiatric orientation/consciousness Overall: oriented to person, place and time 11/04/2015 None Full Exam - General 1994 Constitutional general appearance Assistive Device: wheelchair 11/04/2015 None Full Exam - General 1994 Ears/Nose/Throat lips/teeth/gingiva Overall: benign lips 11/04/2015 None Full Exam - General 1994 Musculoskeletal upper extremity Overall: normal shoulder 11/04/2015 Left shoulder/arm with sling in place. Full Exam - General 1994 Constitutional general appearance Development: well developed 10/20/2015 None Full Exam - General 1994 Constitutional general appearance Development: appears stated age 0310/20/2015 None Full Exam - General 1994 Constitutional general appearance Stature/Body Habitus: kyphosis 10/20/2015 None Full Exam - General 1994 Constitutional general appearance Nourishment: well nourished 10/20/2015 None Full Exam - General 1994 Constitutional general appearance Evidence of Distress: in no acute distress 10/20/2015 None Full Exam - General 1994 Constitutional general appearance Hygiene/Attention to Grooming: good hygiene 10/20/2015 None Full Exam - General 1994 Constitutional general appearance Assistive Device: walker 10/20/2015 None Full Exam - General 1994 Eyes conjunctiva /eyelids Overall: conjunctiva clear 10/20/2015 None Full Exam - General 1994 Eyes conjunctiva /eyelids Overall: cornea clear 10/20/2015 None Full Exam - General 1994 Eyes conjunctiva /eyelids Overall: eyelids normal 10/20/2015 None Full Exam - General 1994 Eyes pupils and irises Overall: pupils equal, round, reactive to light and accomodation 10/20/2015 None Full Exam - General 1994 Ears/Nose/Throat otoscopic exam Overall: external auditory canals clear 10/20/2015 None Full Exam - General 1994 Ears/Nose/Throat otoscopic exam Overall: tympanic membranes clear 10/20/2015 None Full Exam - General 1994 Ears/Nose/Throat oral cavity/pharynx/larynx Overall: oral mucosa clear 10/20/2015 None Full Exam - General 1994 Ears/Nose/Throat oral cavity/pharynx/larynx Overall: oropharyngeal mucosa clear 10/20/2015 None Full Exam - General 1994 Ears/Nose/Throat oral cavity/pharynx/larynx Overall: no masses 10/20/2015 None Full Exam - General 1994 Respiratory auscultation Overall: breath sounds clear bilaterally 10/20/2015 None Full Exam - General 1994 Respiratory respiratory effort/rhythm Overall: no retractions 10/20/2015 None Full Exam - General 1994 Respiratory respiratory effort/rhythm Overall: normal rate 10/20/2015 None Full Exam - General 1994 Cardiovascular auscultation of heart Overall: regular rate 10/20/2015 None Full Exam - General 1994 Cardiovascular auscultation of heart Overall: normal heart sounds 10/20/2015 None Full Exam - General 1994 Abdomen abdominal exam Overall: no tenderness 10/20/2015 None Full Exam - General 1994 Abdomen abdominal exam Overall: normal bowel sounds 10/20/2015 None Full Exam - General 1994 Lymphatic neck nodes Overall: anterior cervical chain benign 10/20/2015 None Full Exam - General 1994 Lymphatic neck nodes Overall: posterior cervical chain benign 10/20/2015 None Full Exam - General 1994 Musculoskeletal upper extremity ROM - shoulder: decreased abduction 10/20/2015 frozen shoulders bilaterally Full Exam - General 1994 Musculoskeletal spine, ribs and pelvis Posture: kyphoscoliosis 10/20/2015 None Full Exam - General 1994 Musculoskeletal head and neck Cervical Spine: deformity 10/20/2015 None Full Exam - General 1994 Integument inspection of skin Overall: few scattered moles, no gross abnormalities 10/20/2015 None Full Exam - General 1994 Neurologic cranial nerves Overall: crainial nerves 2 - 12 grossly intact 10/20/2015 None Full Exam - General 1994 Psychiatric orientation/consciousness Overall: oriented to person, place and time 10/20/2015 None Full Exam - General 1994 Musculoskeletal upper extremity ROM - shoulder: pain with abduction 10/20/2015 None Full Exam - General 1994 Musculoskeletal upper extremity ROM - shoulder: crepitus 10/20/2015 None Full Exam - General 1994 Constitutional general appearance Development: well developed 07/26/2015 None Full Exam - General 1994 Constitutional general appearance Development: appears stated age 1207/26/2015 None Full Exam - General 1994 Constitutional general appearance Stature/Body Habitus: kyphosis 07/26/2015 None Full Exam - General 1994 Constitutional general appearance Nourishment: well nourished 07/26/2015 None Full Exam - General 1994 Constitutional general appearance Evidence of Distress: in no acute distress 07/26/2015 None Full Exam - General 1994 Constitutional general appearance Hygiene/Attention to Grooming: good hygiene 07/26/2015 None Full Exam - General 1994 Constitutional general appearance Assistive Device: walker 07/26/2015 None Full Exam - General 1994 Eyes conjunctiva /eyelids Overall: conjunctiva clear 07/26/2015 None Full Exam - General 1994 Eyes conjunctiva /eyelids Overall: cornea clear 07/26/2015 None Full Exam - General 1994 Eyes conjunctiva /eyelids Overall: eyelids normal 07/26/2015 None Full Exam - General 1994 Eyes pupils and irises Overall: pupils equal, round, reactive to light and accomodation 07/26/2015 None Full Exam - General 1994 Ears/Nose/Throat otoscopic exam Overall: external auditory canals clear 07/26/2015 None Full Exam - General 1994 Ears/Nose/Throat otoscopic exam Overall: tympanic membranes clear 07/26/2015 None Full Exam - General 1994 Ears/Nose/Throat oral cavity/pharynx/larynx Overall: oral mucosa clear 07/26/2015 None Full Exam - General 1994 Ears/Nose/Throat oral cavity/pharynx/larynx Overall: oropharyngeal mucosa clear 07/26/2015 None Full Exam - General 1994 Ears/Nose/Throat oral cavity/pharynx/larynx Overall: no masses 07/26/2015 None Full Exam - General 1994 Respiratory auscultation Overall: breath sounds clear bilaterally 07/26/2015 None Full Exam - General 1994 Respiratory respiratory effort/rhythm Overall: no retractions 07/26/2015 None Full Exam - General 1994 Respiratory respiratory effort/rhythm Overall: normal rate 07/26/2015 None Full Exam - General 1994 Cardiovascular auscultation of heart Overall: regular rate 07/26/2015 None Full Exam - General 1994 Cardiovascular auscultation of heart Overall: normal heart sounds 07/26/2015 None Full Exam - General 1994 Abdomen abdominal exam Overall: no tenderness 07/26/2015 None Full Exam - General 1994 Abdomen abdominal exam Overall: normal bowel sounds 07/26/2015 None Full Exam - General 1994 Lymphatic neck nodes Overall: anterior cervical chain benign 07/26/2015 None Full Exam - General 1994 Lymphatic neck nodes Overall: posterior cervical chain benign 07/26/2015 None Full Exam - General 1994 Musculoskeletal upper extremity ROM - shoulder: decreased abduction 07/26/2015 frozen shoulders bilaterally Full Exam - General 1994 Musculoskeletal spine, ribs and pelvis Posture: kyphoscoliosis 07/26/2015 None Full Exam - General 1994 Musculoskeletal head and neck Cervical Spine: deformity 07/26/2015 None Full Exam - General 1994 Integument inspection of skin Overall: few scattered moles, no gross abnormalities 07/26/2015 None Full Exam - General 1994 Neurologic cranial nerves Overall: crainial nerves 2 - 12 grossly intact 07/26/2015 None Full Exam - General 1994 Psychiatric orientation/consciousness Overall: oriented to person, place and time 07/26/2015 None Full Exam - General 1994 Constitutional general appearance Development: well developed 02/24/2015 None Full Exam - General 1994 Constitutional general appearance Development: appears stated age 0702/24/2015 None Full Exam - General 1994 Constitutional general appearance Stature/Body Habitus: kyphosis 02/24/2015 None Full Exam - General 1994 Constitutional general appearance Nourishment: well nourished 02/24/2015 None Full Exam - General 1994 Constitutional general appearance Evidence of Distress: in no acute distress 02/24/2015 None Full Exam - General 1994 Constitutional general appearance Hygiene/Attention to Grooming: good hygiene 02/24/2015 None Full Exam - General 1994 Constitutional general appearance Assistive Device: walker 02/24/2015 None Full Exam - General 1994 Eyes conjunctiva /eyelids Overall: conjunctiva clear 02/24/2015 None Full Exam - General 1994 Eyes conjunctiva /eyelids Overall: cornea clear 02/24/2015 None Full Exam - General 1994 Eyes conjunctiva /eyelids Overall: eyelids normal 02/24/2015 None Full Exam - General 1994 Eyes pupils and irises Overall: pupils equal, round, reactive to light and accomodation 02/24/2015 None Full Exam - General 1994 Ears/Nose/Throat otoscopic exam Overall: external auditory canals clear 02/24/2015 None Full Exam - General 1994 Ears/Nose/Throat otoscopic exam Overall: tympanic membranes clear 02/24/2015 None Full Exam - General 1994 Ears/Nose/Throat oral cavity/pharynx/larynx Overall: oral mucosa clear 02/24/2015 None Full Exam - General 1994 Ears/Nose/Throat oral cavity/pharynx/larynx Overall: oropharyngeal mucosa clear 02/24/2015 None Full Exam - General 1994 Ears/Nose/Throat oral cavity/pharynx/larynx Overall: no masses 02/24/2015 None Full Exam - General 1994 Respiratory auscultation Overall: breath sounds clear bilaterally 02/24/2015 None Full Exam - General 1994 Respiratory respiratory effort/rhythm Overall: no retractions 02/24/2015 None Full Exam - General 1994 Respiratory respiratory effort/rhythm Overall: normal rate 02/24/2015 None Full Exam - General 1994 Cardiovascular auscultation of heart Overall: regular rate 02/24/2015 None Full Exam - General 1994 Cardiovascular auscultation of heart Overall: normal heart sounds 02/24/2015 None Full Exam - General 1994 Abdomen abdominal exam Overall: no tenderness 02/24/2015 None Full Exam - General 1994 Abdomen abdominal exam Overall: normal bowel sounds 02/24/2015 None Full Exam - General 1994 Lymphatic neck nodes Overall: anterior cervical chain benign 02/24/2015 None Full Exam - General 1994 Lymphatic neck nodes Overall: posterior cervical chain benign 02/24/2015 None Full Exam - General 1994 Musculoskeletal upper extremity ROM - shoulder: decreased abduction 02/24/2015 frozen shoulders bilaterally Full Exam - General 1994 Musculoskeletal spine, ribs and pelvis Posture: kyphoscoliosis 02/24/2015 None Full Exam - General 1994 Musculoskeletal head and neck Cervical Spine: deformity 02/24/2015 None Full Exam - General 1994 Integument inspection of skin Overall: few scattered moles, no gross abnormalities 02/24/2015 None Full Exam - General 1994 Neurologic cranial nerves Overall: crainial nerves 2 - 12 grossly intact 02/24/2015 None Full Exam - General 1994 Psychiatric orientation/consciousness Overall: oriented to person, place and time 02/24/2015 None Full Exam - General 1994 Constitutional general appearance Development: well developed 02/08/2015 None Full Exam - General 1994 Constitutional general appearance Development: appears stated age 0602/08/2015 None Full Exam - General 1994 Constitutional general appearance Stature/Body Habitus: kyphosis 02/08/2015 None Full Exam - General 1994 Constitutional general appearance Nourishment: well nourished 02/08/2015 None Full Exam - General 1994 Constitutional general appearance Evidence of Distress: in no acute distress 02/08/2015 None Full Exam - General 1994 Constitutional general appearance Hygiene/Attention to Grooming: good hygiene 02/08/2015 None Full Exam - General 1994 Constitutional general appearance Assistive Device: walker 02/08/2015 None Full Exam - General 1994 Psychiatric orientation/consciousness Overall: oriented to person, place and time 02/08/2015 None Full Exam - General 1994 Neurologic cranial nerves Overall: crainial nerves 2 - 12 grossly intact 02/08/2015 None Full Exam - General 1994 Integument inspection of skin Overall: few scattered moles, no gross abnormalities 02/08/2015 None Full Exam - General 1994 Musculoskeletal head and neck Cervical Spine: deformity 02/08/2015 None Full Exam - General 1994 Musculoskeletal upper extremity ROM - shoulder: decreased abduction 02/08/2015 frozen shoulders bilaterally Full Exam - General 1994 Lymphatic neck nodes Overall: anterior cervical chain benign 02/08/2015 None Full Exam - General 1994 Lymphatic neck nodes Overall: posterior cervical chain benign 02/08/2015 None Full Exam - General 1994 Abdomen abdominal exam Overall: no tenderness 02/08/2015 None Full Exam - General 1994 Abdomen abdominal exam Overall: normal bowel sounds 02/08/2015 None Full Exam - General 1994 Cardiovascular auscultation of heart Overall: regular rate 02/08/2015 None Full Exam - General 1994 Cardiovascular auscultation of heart Overall: normal heart sounds 02/08/2015 None Full Exam - General 1994 Respiratory auscultation Overall: breath sounds clear bilaterally 02/08/2015 None Full Exam - General 1994 Respiratory respiratory effort/rhythm Overall: normal rate 02/08/2015 None Full Exam - General 1994 Respiratory respiratory effort/rhythm Overall: no retractions 02/08/2015 None Full Exam - General 1994 Ears/Nose/Throat otoscopic exam Overall: tympanic membranes clear 02/08/2015 None Full Exam - General 1994 Ears/Nose/Throat otoscopic exam Overall: external auditory canals clear 02/08/2015 None Full Exam - General 1994 Ears/Nose/Throat oral cavity/pharynx/larynx Overall: oropharyngeal mucosa clear 02/08/2015 None Full Exam - General 1994 Ears/Nose/Throat oral cavity/pharynx/larynx Overall: no masses 02/08/2015 None Full Exam - General 1994 Ears/Nose/Throat oral cavity/pharynx/larynx Overall: oral mucosa clear 02/08/2015 None Full Exam - General 1994 Eyes conjunctiva /eyelids Overall: conjunctiva clear 02/08/2015 None Full Exam - General 1994 Eyes conjunctiva /eyelids Overall: eyelids normal 02/08/2015 None Full Exam - General 1994 Eyes conjunctiva /eyelids Overall: cornea clear 02/08/2015 None Full Exam - General 1994 Eyes pupils and irises Overall: pupils equal, round, reactive to light and accomodation 02/08/2015 None Full Exam - General 1994 Musculoskeletal spine, ribs and pelvis Posture: kyphoscoliosis 02/08/2015 None Procedures Procedure Codes Date KETOROLAC TROMETHAMINE INJ CPT-4: J1885 02/03/2016 THER/PROPH/DIAG INJ SC/IM CPT-4: 55448 02/03/2016 Vital Signs Date Vital 07/05/2017 Blood Pressure 1: 136/78 Code : 8480-6 Heart Rate 1: 106 bpm Height: SpO2: 96% Weight: 06/21/2017 Blood Pressure 1: 100/64 Code : 8480-6 Heart Rate 1: 105 bpm Height: SpO2: 92% Weight: 05/28/2017 Blood Pressure 1: 138/70 Code : 8480-6 Heart Rate 1: 87 bpm Height: 4'10" SpO2: 91% Weight: 05/11/2017 Blood Pressure 1: 106/56 Code : 8480-6 Heart Rate 1: 64 bpm Height: SpO2: 99% Weight: 05/02/2017 Blood Pressure 1: 122/70 Code : 8480-6 Heart Rate 1: 110 bpm Height: 4'10" SpO2: 94% Temperature: 37.3 (C) / 99.2 (F) Weight: 03/27/2017 Blood Pressure 1: 118/80 Code : 8480-6 BMI: 25.3 Code : 82096-0 Heart Rate 1 : 70 bpm Height: 4'10" SpO2: 92% Weight: 121 lbs 02/26/2017 Blood Pressure 1: 126/70 Code : 8480-6 BMI: 24.2 Code : 61721-6 Heart Rate 1 : 101 bpm Height: 4'10 " SpO2: 92% Weight: 116 lbs 02/12/2017 Blood Pressure 1: 116/70 Code : 8480-6 BMI: 25.0 Code : 98129-1 Heart Rate 1 : 91 bpm Height: 4'10" SpO2: 92% Weight: 119 lbs 8 oz 11/23/2016 Blood Pressure 1: 112/82 Code : 8480-6 Heart Rate 1: 102 bpm Height: 4'10" SpO2: 93% Weight: 11/06/2016 Blood Pressure 1: 110/64 Code : 8480-6 Heart Rate 1: 97 bpm Height: 4'10" SpO2: 99% Weight: 10/05/2016 Blood Pressure 1: 134/76 Code : 8480-6 BMI: 23.6 Code : 87460-4 Heart Rate 1 : 96 bpm Height: 4'10" SpO2: 95% Weight: 113 lbs 09/14/2016 Blood Pressure 1: 130/72 Code : 8480-6 BMI: 23.6 Code : 24792-6 Heart Rate 1 : 90 bpm Height: 4'10" SpO2: 97% Weight: 113 lbs 07/25/2016 Blood Pressure 1: 120/68 Code : 8480-6 BMI: 23.4 Code : 28107-4 Heart Rate 1 : 82 bpm Height: 4'11" SpO2: 96% Weight: 115 lbs 06/13/2016 Blood Pressure 1: 118/78 Code : 8480-6 BMI: 23.8 Code : 57265-1 Heart Rate 1 : 98 bpm Height: 4'11" SpO2: 97% Weight: 117 lbs 04/26/2016 Blood Pressure 1: 112/68 Code : 8480-6 Heart Rate 1: 68 bpm Height: SpO2: 96% Weight: 04/17/2016 Blood Pressure 1: 110/60 Code : 8480-6 Heart Rate 1: 85 bpm Height: 4'11" SpO2: 93% Weight: 02/03/2016 Blood Pressure 1: 116/64 Code : 8480-6 Heart Rate 1: 99 bpm Height: 4'11" SpO2: 93% 01/19/2016 Blood Pressure 1: 110/60 Code : 8480-6 BMI: 24.8 Code : 22378-0 Heart Rate 1 : 87 bpm Height: 4'11" SpO2: 93% Weight: 122 lbs 11/04/2015 Blood Pressure 1: 120/58 Code : 8480-6 Heart Rate 1: 87 bpm Height: SpO2: 97% Weight: 10/20/2015 Blood Pressure 1: 136/74 Code : 8480-6 Heart Rate 1: 98 bpm Height: SpO2: 94% Weight: 07/26/2015 Blood Pressure 1: 118/68 Code : 8480-6 Heart Rate 1: 92 bpm SpO2: 93% Weight: 121 lbs 02/24/2015 Blood Pressure 1: 120/62 Code : 8480-6 Heart Rate 1: 96 bpm Height: Weight: 02/08/2015 Blood Pressure 1: 138/64 Code : 8480-6 Heart Rate 1: 80 bpm Weight: 118 lbs Functional Status No Functional Status data History of Present Illness Symptom Name Status Result Effective Date Notes pain Quality chronic 07/05/2017 None pain Onset and Resolution ongoing 07/05/2017 None pain Location-Major in a generalized area 07/05/2017 None pain Pertinent Findings Denies dizziness 07/05/2017 None pain Pertinent Findings Denies fever 07/05/2017 None pain Pertinent Findings Denies itching 07/05/2017 None pain Pertinent Findings Denies muscle pain 07/05/2017 None pain Pertinent Findings Denies tenderness 07/05/2017 None pain Pertinent Findings pain 07/05/2017 None pain Alleviating Factors no alleviating factors 07/05/2017 None pain Triggers no known triggers 07/05/2017 None pain Location-Major on the lower body 06/21/2017 None pain Location-Major on the upper body 06/21/2017 None pain Quality chronic 06/21/2017 None pain Onset and Resolution ongoing 06/21/2017 None Hospital Follow Up _ Other: confusion, elevated liver enzymes, uncontrolled pain, nausea 2016 None Hospital Follow Up Quality acute 05/28/2017 None Hospital Follow Up Onset of Symptom 11 days ago 05/28/2017 None Hospital Follow Up Pertinent Findings pain 05/28/2017 None Hospital Follow Up Severity mild 05/28/2017 None Hospital Follow Up _ pain 05/11/2017 None back pain Location thoracic spine 05/11/2017 None back pain Quality acute 05/11/2017 None back pain Onset and Resolution ongoing 05/11/2017 None back pain Onset of Symptom 1 weeks ago 05/11/2017 None back pain Limitation on Activities does not limit activities 05/11/2017 None back pain Frequency of Episodes increasing 05/11/2017 None back pain Triggers no known associated factors 05/11/2017 None back pain Sports Participation not significant 05/11/2017 None pain, generalized Location diffusely 05/02/2017 None pain, generalized Onset and Resolution ongoing 05/02/2017 None pain, generalized Onset and Resolution sudden in onset 05/02/2017 None pain, generalized Quality sharp 05/02/2017 None pain, generalized Quality acute 05/02/2017 None pain, generalized Triggers exertion 05/02/2017 fall pain, generalized Alleviating Factors medication 05/02/2017 None pain, generalized Alleviating Factors rest 05/02/2017 None dyspnea on exertion Quality intermittent 03/27/2017 None dyspnea on exertion Onset and Resolution ongoing 03/27/2017 None dyspnea on exertion Frequency of Episodes daily 03/27/2017 None dyspnea on exertion Pertinent Findings Denies cough 03/27/2017 None dyspnea on exertion Pertinent Findings decreased energy level 03/27/2017 None nausea Onset and Resolution ongoing 03/27/2017 None nausea Frequency of Episodes daily 03/27/2017 None nausea Pertinent Findings dyspnea 03/27/2017 None nausea Pertinent Findings Denies gastroenteritis 03/27/2017 None nausea Pertinent Findings Denies melena 03/27/2017 None nausea Timing of Episodes in the morning 02/26/2017 None nausea Quality intermittent 02/26/2017 None nausea Onset and Resolution ongoing 02/26/2017 None pruritus Quality chronic 02/26/2017 None pruritus Quality intermittent 02/26/2017 None pruritus Onset and Resolution ongoing 02/26/2017 None pruritus Onset of Symptom years ago 02/26/2017 None pruritus Triggers no known triggers 02/26/2017 None dysphagia Location in the esophageal area 02/26/2017 None dysphagia Quality acute 02/26/2017 None dysphagia Quality difficulty with solids 02/26/2017 None dysphagia Onset and Resolution ongoing 02/26/2017 None dysphagia Pertinent Findings Denies no oral intake 02/26/2017 None dysphagia Pertinent Findings Denies weight loss 02/26/2017 None finger pain Exacerbating Factors finger extension 02/26/2017 None finger pain Exacerbating Factors finger flexion 02/26/2017 None finger pain Limitation on Activities does not limit activities 02/26/2017 None finger pain Location in the right middle finger 02/26/2017 None finger pain Mechanism of injury unknown 02/26/2017 None finger pain Pertinent Findings Denies nail abnormality 02/26/2017 None finger pain Pertinent Findings pain with movement 02/26/2017 in the AM finger pain Pertinent Findings redness 02/26/2017 None nausea Onset and Resolution ongoing 02/12/2017 None nausea Timing of Episodes in the morning 02/12/2017 None nausea Quality intermittent 02/12/2017 None pruritus Onset and Resolution ongoing 02/12/2017 None pruritus Onset of Symptom years ago 02/12/2017 None pruritus Location-Head/Neck on the scalp 02/12/2017 None pruritus Quality chronic 02/12/2017 None pruritus Quality intermittent 02/12/2017 None pruritus Triggers no known triggers 02/12/2017 None pruritus Location-Major on the head 11/23/2016 None pruritus Location-Head/Neck on the scalp 11/23/2016 None pruritus Onset and Resolution ongoing 11/23/2016 None pruritus Onset of Symptom years ago 11/23/2016 None nausea Onset and Resolution ongoing 11/23/2016 None nausea Timing of Episodes in the morning 11/23/2016 None nausea Quality intermittent 11/23/2016 None constipation Quality chronic 11/23/2016 None constipation Onset and Resolution ongoing 11/23/2016 None constipation Severity moderate 11/23/2016 - wondering about amitiza depression Quality constant 11/06/2016 None depression Pertinent Findings depressed mood 11/06/2016 None weight loss Quality intermittent 11/06/2016 None constipation Quality constant 10/05/2016 None constipation Onset and Resolution ongoing 10/05/2016 None constipation Onset of Symptom 5 days ago 10/05/2016 None shortness of breath Quality breathlessness 10/05/2016 None shortness of breath Onset and Resolution sudden in onset 10/05/2016 None shortness of breath Onset of Symptom 2 months ago 10/05/2016 None shortness of breath Frequency of Episodes daily 10/05/2016 None shortness of breath Triggers exertion 10/05/2016 None dysphagia Location in the esophageal area 09/14/2016 None dysphagia Quality chronic 09/14/2016 None dysphagia Onset and Resolution ongoing 09/14/2016 None dysphagia Pertinent Findings Denies fever 09/14/2016 None dysphagia Pertinent Findings esophageal spasm 09/14/2016 None dysphagia Pertinent Findings nausea 09/14/2016 None anxiety Quality acute 09/14/2016 None anxiety Quality intermittent 09/14/2016 None anxiety Quality panic attacks 09/14/2016 None anxiety Onset and Resolution ongoing 09/14/2016 None anxiety Timing of Episodes at night 09/14/2016 None anxiety Timing of Episodes in the evening 09/14/2016 None anxiety Timing of Episodes upon awakening 09/14/2016 None anxiety Pertinent Findings dyspnea 09/14/2016 None anxiety Pertinent Findings restlessness 09/14/2016 None rash Color red 2015 None rash Onset of Symptom 2-3 weeks ago 07/25/2016 None rash Pertinent Findings itching 07/25/2016 None rash Quality acute 01/2016 None rash Onset and Resolution ongoing 07/25/2016 None rash Location-Major on the upper body 07/25/2016 bilateral shoulders rash Limitation on Activities moderately limits activities 07/25/2016 None rash Severity worsening 07/25/2016 None rash Prior Treatments unresponsive to treatment 07/25/2016 None rash Triggers no known triggers 07/25/2016 None dysphagia Location diffusely 06/13/2016 None dysphagia Location in the throat 06/13/2016 None dysphagia Quality difficulty with all liquids and solids 06/13/2016 None dysphagia Onset and Resolution ongoing 06/13/2016 None dysphagia Onset of Symptom _ months ago 06/13/2016 None dysphagia Limitation on Activities limits oral intake 06/13/2016 None dysphagia Frequency of Episodes daily 06/13/2016 None dysphagia Pertinent Findings Denies cough 06/13/2016 None dysphagia Pertinent Findings Denies dyspnea 06/13/2016 None dysphagia Pertinent Findings Denies emesis 06/13/2016 None dysphagia Pertinent Findings Denies nausea 06/13/2016 None joint complaint Location in both hips 04/26/2016 None joint complaint Location on both knees 04/26/2016 None joint complaint Quality aching 04/26/2016 None joint complaint Onset and Resolution gradual in onset 04/26/2016 None joint complaint Onset and Resolution ongoing 04/26/2016 None joint complaint Exacerbating Factors activity 04/26/2016 None hip pain Location on the right 04/26/2016 None hip pain Quality constant 04/26/2016 None hip pain Onset and Resolution ongoing 04/26/2016 None hip pain Limitation on Activities moderately limits activities 04/26/2016 None hip pain Limitation on Activities significant activity modification 04/26/2016 None hip pain Limitation on Activities limits quality of life 04/26/2016 None hip pain Limitation on Activities limits dressing activity 04/26/2016 None hip pain Severity severe 04/26/2016 None hip pain Alleviating Factors rest 04/26/2016 None hip pain Exacerbating Factors activity 04/26/2016 None hip pain Exacerbating Factors weight bearing 04/26/2016 None joint complaint Pertinent Findings Denies trauma 04/26/2016 None hip pain Pertinent Findings instability 04/26/2016 None hip pain Pertinent Findings pain at rest 04/26/2016 None hip pain Location on the right 04/17/2016 None hip pain Quality burning sensation 04/17/2016 None hip pain Quality stable 04/17/2016 None hip pain Mechanism of injury unknown 04/17/2016 None joint complaint Location in both hips 02/03/2016 None joint complaint Location on both knees 02/03/2016 None joint complaint Location on the left shoulder 02/03/2016 None joint complaint Quality aching 02/03/2016 None joint complaint Onset and Resolution gradual in onset 02/03/2016 None joint complaint Onset and Resolution ongoing 02/03/2016 None joint complaint Exacerbating Factors activity 02/03/2016 None hip pain Location on the right 02/03/2016 None hip pain Quality constant 02/03/2016 None hip pain Limitation on Activities limits quality of life 02/03/2016 None hip pain Limitation on Activities limits dressing activity 02/03/2016 None hip pain Limitation on Activities significant activity modification 02/03/2016 None hip pain Limitation on Activities moderately limits activities 02/03/2016 None hip pain Severity severe 02/03/2016 None hip pain Alleviating Factors rest 02/03/2016 None hip pain Exacerbating Factors weight bearing 02/03/2016 None hip pain Exacerbating Factors activity 02/03/2016 None hip pain Onset and Resolution ongoing 02/03/2016 None joint complaint Location in both hips 01/19/2016 None joint complaint Location on both knees 01/19/2016 None joint complaint Location on the left shoulder 01/19/2016 None joint complaint Quality aching 01/19/2016 None joint complaint Onset and Resolution ongoing 01/19/2016 None joint complaint Onset and Resolution gradual in onset 01/19/2016 None joint complaint Exacerbating Factors activity 01/19/2016 None hypothyroid Onset and Resolution ongoing 01/19/2016 None hypothyroid Alleviating Factors medication 01/19/2016 None dysphagia Onset and Resolution ongoing 01/19/2016 None depression Onset and Resolution sudden in onset 11/04/2015 None depression Onset of Symptom 1 months ago 11/04/2015 None psoriasis Frequency of Episodes daily 11/04/2015 None psoriasis Location on the scalp 11/04/2015 None psoriasis Onset and Resolution gradual in onset 11/04/2015 None psoriasis Onset of Symptom 3 months ago 11/04/2015 None nausea Onset of Symptom 3 weeks ago 11/04/2015 None nausea Frequency of Episodes daily 11/04/2015 None nausea Onset and Resolution sudden in onset 11/04/2015 None headache Location diffusely 11/04/2015 None headache Quality dull 11/04/2015 None headache Quality pressure 11/04/2015 None headache Quality constant 11/04/2015 None headache Onset and Resolution sudden in onset 11/04/2015 None headache Onset of Symptom 3 days ago 11/04/2015 None headache Frequency of Episodes daily 11/04/2015 None shoulder pain Location diffusely 10/20/2015 None shoulder pain Quality constant 10/20/2015 None shoulder pain Quality sharp 10/20/2015 None shoulder pain Quality tenderness 10/20/2015 None shoulder pain Quality worsening 10/20/2015 None shoulder pain Onset and Resolution sudden in onset 10/20/2015 None shoulder pain Frequency of Episodes daily 10/20/2015 None shoulder pain Onset of Symptom 1 weeks ago 10/20/2015 None hip pain Location on the right 07/26/2015 None hip pain Severity moderate 07/26/2015 None hip pain Significant Medical Conditions advancing age 1207/26/2015 None hip pain Pertinent Findings pain at rest 07/26/2015 None hip pain Pertinent Findings pain with movement 07/26/2015 using ice nocturia Quality chronic 07/26/2015 None nocturia Onset and Resolution ongoing 07/26/2015 "Doesn't bother her as much" nocturia Severity moderate 07/26/2015 None nocturia Frequency of Episodes 3-4 times a night 07/26/2015 feels like she has to go, but then she doesnt- sometimes hard to urinate but if she drinks enough she is ok hip pain Location on the left 07/26/2015 None hip pain Quality stable 07/26/2015 None pain Location-Major in a generalized area 07/26/2015 None pain Location-Extremities on the left wrist 07/26/2015 None pain Location-Extremities on both knees 07/26/2015 None pain Location-Extremities on the left upper arm 07/26/2015 None pain Quality chronic 07/26/2015 None pain Onset and Resolution ongoing 07/26/2015 None pain Pertinent Findings pain 07/26/2015 None constipation Quality chronic 07/26/2015 None constipation Onset and Resolution ongoing 07/26/2015 None arrhythmia Quality chronic 07/26/2015 None arrhythmia Quality intermittent 07/26/2015 None hip pain Location on the right 02/24/2015 None hip pain Onset of Symptom 2-3 weeks ago 02/24/2015 None hip pain Pertinent Findings pain at rest 02/24/2015 None hip pain Pertinent Findings pain with movement 02/24/2015 using ice nocturia Onset and Resolution ongoing 02/24/2015 wondering about doxepin at bedtime nocturia Frequency of Episodes 3-4 times a night 02/24/2015 feels like she has to go, but then she doesnt- sometimes hard to urinate but if she drinks enough she is ok hip pain Quality dull ache 02/24/2015 None hip pain Severity moderate 02/24/2015 None hip pain Significant Medical Conditions advancing age 0702/24/2015 None nocturia Severity moderate 02/24/2015 None nocturia Quality chronic 02/24/2015 None nocturia Quality worsening 02/24/2015 None arrhythmia Onset and Resolution ongoing 02/08/2015 hasnt seen tugger operator in a while- atrial fib arrhythmia Pertinent Findings Denies dyspnea 02/08/2015 uses O2 at night arrhythmia Pertinent Findings dizziness 02/08/2015 None urinary retention/hesitancy Onset and Resolution ongoing 02/08/2015 None urinary retention/hesitancy Pertinent Findings back pain 02/08/2015 intermittent- drinks water and is better. Daughter reports that she drinks quite a bit urinary retention/hesitancy Pertinent Findings Denies bladder pain 02/08/2015 None wrist pain Location on the left 02/08/2015 None osteoporosis Previous/Recent Fractures Other: _ 02/08/2015 history- wondering is she needs to be taking anything for this osteoporosis Pertinent Findings fractures 02/08/2015 None wrist pain Onset of Symptom 7 weeks ago 02/08/2015 fell in June- hurts to touch wrist pain Pertinent Findings pain with movement 02/08/2015 None arrhythmia Onset of Symptom during adulthood 02/08/2015 None urinary retention/hesitancy Quality acute 02/08/2015 None Advance Directives No Advance Directive data Encounters Encounter Performer Location Codes Date ([id number]) 27556 EST. PATIENT, LEVEL IV Diagnosis: Chronic pain syndrome[ICD10: G89.4] Diagnosis: Generalized anxiety disorder[ICD10: F41.1] Diagnosis: Chronic atrial fibrillation[ICD10: I48.2] Keri Lemus MD, [facility] CPT-4: 92137 07/05/2017 62845 EST. PATIENT, LEVEL III Diagnosis: Chronic pain syndrome[ICD10: G89.4] Diagnosis: Generalized anxiety disorder[ICD10: F41.1] Vernell Lemus MD, [facility] CPT-4: 98374 06/21/2017 ([id number]) 39114 EST. PATIENT, LEVEL IV Diagnosis: Chronic pain syndrome[ICD10: G89.4] Diagnosis: Low back pain[ICD10: M54.5] Diagnosis: Slow transit constipation[ICD10: K59.01] Diagnosis: Gastro-esophageal reflux disease without esophagitis[ICD10: K21.9] Keri Lemus MD, [facility] CPT-4: 82695 05/28/2017 ([id number]) 73647 EST. PATIENT, LEVEL III Diagnosis: Pain in thoracic spine[ICD10: M54.6] Diagnosis: Chronic pain syndrome[ICD10: G89.4] Antonette Lemus MD, [facility] CPT-4: 19832 05/11/2017 ([id number]) Patient admitted to the hospital from clinic (NO CHARGE) Diagnosis: Low back pain[ICD10: M54.5] Diagnosis: Other chronic pain[ICD10: G89.29] Keri Lemus MD, [facility] CPT-4: 01397S 05/02/2017 ([id number]) 68775 EST. 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 PATIENT, LEVEL IV Diagnosis: Dysphagia, pharyngoesophageal phase[ICD10: R13.14] Diagnosis: Seborrheic dermatitis, unspecified[ICD10: L21.9] Diagnosis: Primary osteoarthritis, unspecified site[ICD10: M19.91] Diagnosis: Generalized anxiety disorder[ICD10: F41.1] Diagnosis: Abnormal weight loss[ICD10: R63.4] Antonette Lemus MD, [facility] CPT-4: 33680 02/26/2017 ([id number]) 15946 EST. PATIENT, LEVEL IV Diagnosis: Postnasal drip[ICD10: R09.82] Diagnosis: Tinea barbae and tinea capitis[ICD10: B35.0] Diagnosis: Generalized anxiety disorder[ICD10: F41.1] Antonette Lemus MD, [facility] CPT-4: 81848 02/12/2017 ([id number]) 12550 EST. PATIENT, LEVEL IV Diagnosis: Chronic atrial fibrillation[ICD10: I48.2] Diagnosis: Chronic idiopathic constipation[ICD10: K59.04] Diagnosis: Low back pain[ICD10: M54.5] Diagnosis: Generalized anxiety disorder[ICD10: F41.1] Keri Lemus MD, [facility] CPT-4: 77193 11/23/2016 41513 EST. 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 PATIENT, LEVEL IV Diagnosis: Other malaise[ICD10: R53.81] Diagnosis: Slow transit constipation[ICD10: K59.01] Diagnosis: Shortness of breath[ICD10: R06.02] Diagnosis: Other fatigue[ICD10: R53.83] Vernell Lemus MD, [facility] CPT-4 : 93983 10/05/2016 18149 EST. PATIENT, LEVEL IV Diagnosis: Dysphagia, pharyngoesophageal phase[ICD10: R13.14] Diagnosis: Generalized anxiety disorder[ICD10: F41.1] Vernell Lemus MD, [facility] CPT-4: 98745 09/14/2016 ([id number]) 04584 EST. PATIENT, LEVEL III Diagnosis: Pain in left shoulder[ICD10: M25.512] Diagnosis: Rash and other nonspecific skin eruption[ICD10: R21] Antonette Lemus MD, [facility] CPT-4: 18383 07/25/2016 ([id number]) 26064 EST. PATIENT, LEVEL IV Diagnosis: Dysphagia, pharyngoesophageal phase[ICD10: R13.14] Diagnosis: Chronic idiopathic constipation[ICD10: K59.04] Diagnosis: Gastro-esophageal reflux disease without esophagitis[ICD10: K21.9] Antonette Lemus MD, [facility] CPT-4: 74454 06/13/2016 ([id number]) 47445 EST. PATIENT, LEVEL IV Diagnosis: Pain in right hip[ICD10: M25.551] Diagnosis: Low back pain[ICD10: M54.5] Diagnosis: Hypothyroidism, unspecified[ICD10: E03.9] Keri Lemus MD, [facility] CPT-4: 97947 04/26/2016 73627 EST. PATIENT, LEVEL III Diagnosis: Pain in right hip[ICD10: M25.551] Vernell Lemus MD, [facility] CPT -4: 14203 04/17/2016 ([id number]) 96957 EST. PATIENT, LEVEL IV Diagnosis: Low back pain[ICD10: M54.5] Diagnosis: Pain in right hip[ICD10: M25.551] Diagnosis: Unspecified fall, sequela[ICD10: W19.XXXS] Diagnosis: Pain, unspecified[ICD10: R52] Keri Lemus MD, [facility] CPT- 4: 73548 02/03/2016 ([id number]) 41152 EST. PATIENT, LEVEL III Diagnosis: Dysphagia, pharyngoesophageal phase[ICD10: R13.14] Diagnosis: Hypothyroidism, unspecified[ICD10: E03.9] Diagnosis: Pain in left shoulder[ICD10: M25.512] Keri Lemus MD, [facility] CPT-4: 21281 01/19/2016 77106 EST. PATIENT, LEVEL IV Diagnosis: Pain in left shoulder[ICD10: M25.512] Diagnosis: Chronic atrial fibrillation[ICD10: I48.2] Vernell Lemus MD, [facility] CPT-4: 07218 11/04/2015 18615 EST. PATIENT, LEVEL IV Diagnosis: Pain in left shoulder[ICD10: M25.512] Diagnosis: Chronic atrial fibrillation[ICD10: I48.2] Diagnosis: Primary osteoarthritis, unspecified site[ICD10: M19.91] Vernell Lemus MD, [facility] CPT-4: 39505 10/20/2015 ([id number]) 44042 EST. PATIENT, LEVEL IV Diagnosis: Dysphagia, pharyngoesophageal phase[ICD10: R13.14] Diagnosis: Hypothyroidism, unspecified[ICD10: E03.9] Diagnosis: Primary osteoarthritis, unspecified site[ICD10: M19.91] Diagnosis: Chronic atrial fibrillation[ICD10: I48.2] [facility] CPT-4: 00288 07/26/2015 ([id number]) 34048 EST. PATIENT, LEVEL IV Diagnosis: Dysphagia[ICD9: 787.20] Diagnosis: DYSPHAGIA, OROPHARYNGEAL[ICD9: 787.22] Diagnosis: Left wrist pain[ICD9: 719.43] Keri Lemus MD, [facility] CPT- 4: 36128 02/24/2015 ([id number]) OFFICE VISIT, NEW - LEVEL 4 Diagnosis: Left wrist pain[ICD9: 719.43] Diagnosis: A-fib[ICD9: 427.31] Diagnosis: Hypothyroidism[ICD9: 244.9] Diagnosis: Osteoarthritis[ICD9: 715.90] Diagnosis: URINARY FREQUENCY[ICD9: 788.41] Keri Lemus MD, [facility] CPT- 4: 78914 02/08/2015 Plan of Care Planned Activity Notes Codes Status Date Referral: Ketan Healy [facility] nurse informed. Referral info faxed. Completed 08/16/2017 Appointment: Keri Lemus WPtel: [address] [place], [place] [id number] (30 min) Complex 08/06/2017 Visit Plan: Chronic pain - low back pain - hx of lumbar compression fractures - Referral to Dr. Healy for pain injections. Pt has a conflicting reports compared to the nursing staff. She reports that she never asks for her pain medication early. However per nursing staff, pt often asks for her pain medication within 1-2 hours of getting her medications administered. I have tried to discuss this with the patient, but she is not willing to talk about the medication, just keeps stating that she is in pain and asking if I have any medication available to give her today. I asked Aarti to wait for me while I went into my office to talk to the nurses at the detention about her pain and the pain medication regimen. They reported that they have extensive documentation of Aarti asking for pain medication early and they also have documentation of Aarti being excessively groggy while still asking for pain medication. I went back to the room to talk to Aarti and she had decided that she was done waiting for me to talk to the nursing staff and wheeled herself out of the room and asked my staff to help her to the waiting room. She was not interested in coming back to the room to talk, she just wanted to go back to the detention and receive her pain medication. Anxiety - pt has prn xanax. Atrial Fibrillation - pt on chronic anticoagulation and is currently rate controlled. The pt is to have labs done as appropriate to monitor medication levels and is to report if they start to feel as if their heart rate is becoming uncontrolled. 07/05/2017 App[facility]ment[facility] [phone] [id number] [facility] 07/05/2017 Patient Education: Patient Medication Summary Completed 07/05/2017 Care Plan: Referral Order SNOMED-CT : [id number] Pending 07/05/2017 Visit Plan: Chronic Pain Syndrome - pt has chronic pain - pt and family denies that she is asking for pain medication early or misusing pain medication, they are upset that the nursing staff is reporting this - Discussed with Dr. Lemus - the pt and family are to consider a referral to a aircraft painter apprentice. Chronic Depression and anxiety - the pt has symptoms of chronic anxiety and depression that have been fairly well controlled since the last office visit. The pt has expected periods of exacerbation with abatement of the symptoms with change in situational exposure. No change in current medications. 06/21/2017 App[facility]ment: [facility] [phone] [id number] [place] ([facility] Complex 06/21/2017 Patient Education: Patient Medication Summary Completed 06/21/2017 Appointment: [facility] [place] (15 min) Moderate 05/29/2017 Visit Plan: Chronic pain - ucontrolled - recommeded the following: increased fentanyl to 150mcg - pt requested that her oxycodone dose be increased, but that is not appropriate at this time. Esophageal Reflux - the patient has been counseled against excessive intake of caffeine, spicy foods, peppermint, and cinnamon - all of which can exacerbate esophageal reflux. The patient is to take medications as prescribed and call the office if the symptoms are not improving. constipation- chronic - refilled miralax. 05/28/2017 Appointment: Keri Lemus [facility] [facility] [place] (30 min) Complex 05/28/2017 Patient Education: Patient Medication Summary Completed 05/28/2017 Visit Plan: Chronic pain-sacral fx-hospital follow up-pain improving-no changes Thoracic back [id number] xray thoracic spine to evaluate for compression fracture-instructed [place] to give patient a pain pill for pain if due and to call the office if not due yet 05/11/2017 Appointment: Antonette Baumann WPtel[phone] [place] (30 min) Complex 05/11/2017 Patient Education: Patient Medication Summary Completed 05/11/2017 Visit Plan: Admit for pain control and imaging - discussed with patient - this is an observation admission - cost will be directed to her from medicare since they do not pay for medications during an observation admission. 05/02/2017 Appointment: Keri Lemus [facility]el[facility] [facility] [place] (15 min) Moderate 05/02/2017 Patient Education: Patient Medication Summary Completed 05/02/2017 Visit Plan: Atrial Fibrillation - pt on chronic anticoagulation and is currently rate controlled. The pt is to have labs done as appropriate to monitor medication levels and is to report if they start to feel as if their heart rate is becoming uncontrolled. Diverticulum of esophagus - achalasia - continue with supportive care - pt to have follow up appt with Dr. Shukla - he did botox injections into esophagus, needs to have an appointment for possible repeat injections. Pt to continue with boost for weight gain. Pt wanted to consider periactin or seroquel to help her gain weight - however, that is not appropriate - specifically the seroquel. She has gained weight since her last appointment. Chronic Depression and anxiety - the pt has symptoms of chronic anxiety and depression that have been fairly well controlled since the last office visit. The pt has expected periods of exacerbation with abatement of the symptoms with change in situational exposure. No change in current medications. 03/27/2017 Appointment: Keri Lemus WPtel: [facility] (15 min) Moderate 03/27/2017 Patient Education: Patient Medication Summary Completed 03/27/2017 Visit Plan: Dysphagia-recommend patient f/u with Dr Shukla Seborrheic dermatitis-mix ketoconazole and triamcinolone cream and apply BID OA- hands, shoulders, hips-RX for voltaren gel Weight loss-increase ensure to BID-f/ u weight in 1 month 02/26/2017 Appointment: Antonette Baumann WPtel: [facility]4 [phone] (30 min) Complex 02/26/2017 Patient Education: Patient Medication Summary Completed 02/26/2017 Visit Plan: Allergies - chronic - recommended pt to use allergy medication as prescribed. Pt has been counseled as to the appropriate use of the medication. Pt to call if allergy symptoms are not controlled with the medication. If using nasal spray, instructions as follows: Nasal spray- use twice daily, one spray per nostril twice daily, after 30 minutes, rinse out nose with saline spray.. Use opposite hand per nostril to spray in the nasal steroid allergy spray. Tinea-RX for ketoconazole cream -patient does not want the shampoo Wzxflhq-euqepnh-hjuotv well controlled-no change in medications 02/12/2017 Appointment: Antonette Baumann WPtel: [address] [phone] (30 min) Complex 02/12/2017 Patient Education: Patient Medication Summary Completed 02/12/2017 Appointment: Vernell Holden WPtel: [address] [facility] [place] (30 min) Complex 02/08/2017 Appointment: [place] WPtel: [address] [facility] [place] (15 min) Moderate 12/14/2016 Visit Plan: Chronic constipation - start amitiza 24mg daily Chronic pain syndrome - continue with chronic pain medication - start physical therapy for back pain. Generalized Anxiety - continue with chronic medications. 11/23/2016 Appointment: [place] Keri WPtel: [facility]5 [facility] [place] (30 min) Complex 11/23/2016 Patient Education: Patient Medication Summary Completed 11/23/2016 Visit Plan: Decreased appetite, increased depression - will start remeron, pt and detention staff to monitor symptoms - notify clinic if symptoms do not improve, if they worsen, or with any questions or concerns. Tinea - will send RX for ketoconazole shampoo - pt is to notify clinic if symptoms do not improve, if they worsen, or with any questions or concerns. shortness of breath - will check x-ray if symptoms do not improve. 11/06/2016 Appointment: Vernell Holden WPtel: [facility]1 [facility] (30 min) Complex 11/06/2016 Patient Education: Patient Medication Summary Completed 11/06/2016 Visit Plan: Constipation - uncontrolled - I have discussed with the patient the need for adequate fiber and water intake to facilitate soft , easily passed stools. The pt noted understanding of our conversation. I have given the patient a recipe for "power pudding" - equal parts, bran flakes, prune juice, and apple sauce. The pt is to call if symptoms not improved on this regimen. Malaise, fatigue, intermittent shortness of breath - will check labs, pt is to notify clinic if symptoms do not improve, if they worsen, or with any questions or concerns. 10/05/2016 Appointment: Vernell Holden WPtel: [address] [facility] (15 min) Moderate 10/05/2016 Patient Education: Patient Medication Summary Completed 10/05/2016 Visit Plan: Anxiety - the patient has uncontrolled anxiety and will benefit from a very low dose of prn benzodiazepine to attempt control of the symptoms of anxiety (tachycardia, overwhelming sensations, stress, insomnia, etc). . Pt is aware of the risks and benefits of treatment with the above medications. Esophageal Reflux/spasms - pt is to reschedule procedure with Dr. Shukla - the patient has been counseled against excessive intake of caffeine, spicy foods, peppermint, and cinnamon - all of which can exacerbate esophageal reflux. The patient is to take medications as prescribed and call the office if the symptoms are not improving. 09/14/2016 Appointment: Vernell Holden WPtel: [facility]2 [facility] (30 min) Complex 09/14/2016 Patient Education: Patient Medication Summary Completed 09/14/2016 Appointment: Vernell Holden WPtel: [facility]7 [facility] [place] [address] - Annual Wellness Visit 08/03/2016 Visit Plan: Left shoulder pain-history of fracture- recommend PT-patient will consider Rash--hold voltaren gel-use nystatin/ triamcinolone cream as directed-follow up in 2 weeks if rash not resolved 07/25/2016 Appointment: Antonette Baumann WPtel: [address] [phone] (30 min) Complex 07/25/2016 Patient Education: Patient Medication Summary Completed 07/25/2016 Visit Plan: Dysphagia-refer to Dr Bae for evaluation- EGD by Dr Nascimento was negative-continues to have trouble swallowing and wants to see Dr Bae-will send referral Esophageal Reflux - the patient has been counseled against excessive intake of caffeine, spicy foods, peppermint, and cinnamon - all of which can exacerbate esophageal reflux. The patient is to take medications as prescribed and call the office if the symptoms are not improving. Constipation-add miralax scheduled-milk of magnesia today 06/13/2016 Patient Education: Patient Medication Summary Completed 06/13/2016 Appointment: Antonette Baumann WPtel: [address] [phone] (30 min) Complex 06/06/2016 Visit Plan: Hypothyroidism - pt with chronic hypothyroidism , continue with current medication, will monitor pt to signs or symptoms of lack of adequate supplementation. Pt is to continue with current dose of medication unless directed otherwise. Check labs at regular intervals wither q 3 months or q 6 months based on previous levels of control. Chronic Pain Syndrome - pt has chronic pain - has been maintained on current medications, has not sought out other medications, only uses PRN pain medications as directed , and understands the consequences of over-medication. 04/26/2016 Appointment: Keri Lemus WPtel: [facility]7 [facility] (15 min) Moderate 04/26/2016 Patient Education: Patient Medication Summary Completed 04/26/2016 Appointment: Keri Lemus WPtel: [facility]1 [facility] (15 min) Moderate 04/25/2016 Appointment: Antonette Baumann WPtel: [facility]4 [phone] [place] (30 min) Complex 04/18/2016 Visit Plan: Acute on Chronic pain syndrome - pt reports uncontrolled symptoms, hip and back pain - will order x-ray, will increase pain medication, pt is to notify clinic if pain is being uncontrolled. 04/17/2016 Patient Education: Patient Medication Summary Completed 04/17/2016 Visit Plan: Acute on Chronic pain syndrome - pt reports uncontrolled symptoms, hip and back pain - recommended pt to have further imaging as she may have a sub-acute fracture that was not seen on previous imaging. 02/03/2016 Appointment: Keri Lemus WPtel: [facility]1 [facility] (15 min) Moderate 02/03/2016 Patient Education: Patient Medication Summary Completed 02/03/2016 Care Plan: CT LUMBAR SPINE W/O DYE LOINC : 57572-1 Pending 02/03/2016 Care Plan: CT LOWER EXTREMITY W/O DYE LOINC : 93385-2 Pending 02/03/2016 Referral: Berto Nascimento WPtel:[phone] Called to [facility] at [facility] Completed 02/02/2016 Visit Plan: Dysphagia - monitor symptoms - dc premarin due to pt's insurance not paying. Hypothyroidism - pt with chronic hypothyroidism, continue with current medication, will monitor pt to signs or symptoms of lack of adequate supplementation. Pt is to continue with current dose of medication unless directed otherwise. Check labs at regular intervals wither q 3 months or q 6 months based on previous levels of control. Pain in shoulder - continue with voltaren. 01/19/2016 Appointment: Keri Lemus WPtel: [facility]5 [facility]66[facility] (15 min) Moderate 01/19/2016 Patient Education: Patient Medication Summary Completed 01/19/2016 Care Plan: Referral Order SNOMED-CT : [id number] Pending 01/19/2016 Appointment: Keri Lemus WPtel: [facility]5 [facility] (15 min) Moderate 01/13/2016 Appointment: Keri Lemus WPtel: [address] [place] [address] (15 min) Moderate 12/06/2015 Appointment: (15 min) Moderate 11/19/2015 Visit Plan: Left shoulder pain - pt has humerus fx, is seeing Dr. Gayle. Atrial Fibrillation - pt on chronic anticoagulation and is currently rate controlled. The pt is to have labs done as appropriate to monitor medication levels and is to report if they start to feel as if their heart rate is becoming uncontrolled. Chronic Depression and anxiety - the pt has symptoms of chronic anxiety and depression that have been fairly well controlled since the last office visit. The pt has expected periods of exacerbation with abatement of the symptoms with change in situational exposure. No change in current medications. Continue Citalopram DC lexapro 11/04/2015 Appointment: (15 min) Moderate 11/04/2015 Patient Education: Patient Medication Summary Completed 11/04/2015 Appointment: Keri Lemus WPtel: [facility]1 [facility] [place] (15 min) Moderate 10/26/2015 Care Plan: X-RAY EXAM OF SHOULDER LOINC : 06059-3 Ordered 10/21/2015 Visit Plan: Left shoulder/Chronic Pain Syndrome - pt recently requested a decrease in pain medication, but states that she has since hurt her shoulder and would like to go back to her previous schedule of pain medication. Will resume previous pain medication schedule. Pt has chronic pain - has been maintained on current medications, has not sought out other medications, only uses PRN pain medications as directed, and understands the consequences of over-medication. Atrial Fibrillation - pt on chronic anticoagulation and is currently rate controlled. The pt is to have labs done as appropriate to monitor medication levels and is to report if they start to feel as if their heart rate is becoming uncontrolled. 10/20/2015 Appointment: (30 min) Complex 10/20/2015 Patient Education: Patient Medication Summary Completed 10/20/2015 Appointment: (30 min) Complex 10/13/2015 Referral: Berto Nascimento WPtel:[phone] Referral Completed 08/11/2015 Visit Plan: Esophageal dysmotility - pt worried about a stricture - recommended that the patient needs to have an EGD - we will refer Mrs. Prescott to Dr. Nascimento for scope. OA - of hips - continue with Voltaren gel to knees and hips and arm. Constipation - recommend that the patient start on PAB - power pudding. 07/26/2015 Patient Education: Patient Medication Summary Completed 07/26/2015 Care Plan: Referral Order SNOMED-CT : [id number] Ordered 07/26/2015 Care Plan: ASSAY OF DIGOXIN Ordered 07/26/2015 Appointment: Keri Lemus WPtel: [facility]5 [facility] (15 min) Moderate 04/21/2015 Appointment: (30 min) Complex 04/16/2015 Visit Plan: Dysphagia - we will order a Barium Swallow study to see if there is a stricture or some other problem causing Mrs. Prescott to have trouble swallowing. Left Wrist pain - brace to be ordered for her wrist and we will also recommend pt to have voltaren gel used on that wrist three times daily. 02/24/2015 Appointment: Keri Lemus WPtel: [facility] (15 min) Moderate 02/24/2015 Patient Education: Patient Medication Summary Completed 02/24/2015 Visit Plan: Left wrist pain-xray left wrist-recent fall Arthritis- occasionally uncontrolled symptoms- recommend pt to take antiinflammatory as directed for pain control. Use tylenol for break through pain symptoms. Atrial Fibrillation - pt on chronic anticoagulation and is currently rate controlled. The pt is to have labs done as appropriate to monitor medication levels and is to report if they start to feel as if their heart rate is becoming uncontrolled. Hypothyroidism - pt with chronic hypothyroidism, continue with current medication, will monitor pt to signs or symptoms of lack of adequate supplementation. Pt is to continue with current dose of medication unless directed otherwise. Check labs at regular intervals wither q 3 months or q 6 months based on previous levels of control. Urinary frequency-but patient isn't able to void with each attempt-plan to check UA with C&S if indicated 02/08/2015 Appointment: Antonette Baumann WPtel: [phone] [place] ([place]) New Patient 02/08/2015 Patient Education: Patient Medication Summary Completed 02/08/2015 Referral: Ketan Healy Referral Appointment Requested Referral: Berto Nascimento WPtel:[phone] Referral Completed Instructions Comment . Left shoulder pain - pt has humerus fx, is seeing Dr. Gayle. Atrial Fibrillation - pt on chronic anticoagulation and is currently rate controlled. The pt is to have labs done as appropriate to monitor medication levels and is to report if they start to feel as if their heart rate is becoming uncontrolled. Chronic Depression and anxiety - the pt has symptoms of chronic anxiety and depression that have been fairly well controlled since the last office visit. The pt has expected periods of exacerbation with abatement of the symptoms with change in situational exposure. No change in current medications. Continue Citalopram; DC lexapro . Left shoulder/Chronic Pain Syndrome - pt recently requested a decrease in pain medication, but states that she has since hurt her shoulder and would like to go back to her previous schedule of pain medication. Will resume previous pain medication schedule. Pt has chronic pain - has been maintained on current medications, has not sought out other medications, only uses PRN pain medications as directed, and understands the consequences of over- medication. Atrial Fibrillation - pt on chronic anticoagulation and is currently rate controlled. The pt is to have labs done as appropriate to monitor medication levels and is to report if they start to feel as if their heart rate is becoming uncontrolled. . Dysphagia - we will order a Barium Swallow study to see if there is a stricture or some other problem causing Mrs. Prescott to have trouble swallowing. Left Wrist pain - brace to be ordered for her wrist and we will also recommend pt to have voltaren gel used on that wrist three times daily. . Esophageal dysmotility - pt worried about a stricture - recommended that the patient needs to have an EGD - we will refer Mrs. Prescott to Dr. Nascimento for scope. OA - of hips - continue with Voltaren gel to knees and hips and arm. Constipation - recommend that the patient start on PAB - power pudding. . Atrial Fibrillation - pt on chronic anticoagulation and is currently rate controlled. The pt is to have labs done as appropriate to monitor medication levels and is to report if they start to feel as if their heart rate is becoming uncontrolled. Diverticulum of esophagus - achalasia - continue with supportive care - pt to have follow up appt with Dr. Shukla - he did botox injections into esophagus, needs to have an appointment for possible repeat injections. Pt to continue with boost for weight gain. Pt wanted to consider periactin or seroquel to help her gain weight - however, that is not appropriate - specifically the seroquel. She has gained weight since her last appointment. Chronic Depression and anxiety - the pt has symptoms of chronic anxiety and depression that have been fairly well controlled since the last office visit. The pt has expected periods of exacerbation with abatement of the symptoms with change in situational exposure. No change in current medications. REFER TO DR BAE INCREASE NEXIUM TO BID MILK OF MAG TODAY MIRALAX Q 3 DAYS . Dysphagia-refer to Dr Bae for evaluation-EGD by Dr Nascimento was negative- continues to have trouble swallowing and wants to see Dr Bae-will send referral Esophageal Reflux - the patient has been counseled against excessive intake of caffeine, spicy foods, peppermint, and cinnamon - all of which can exacerbate esophageal reflux. The patient is to take medications as prescribed and call the office if the symptoms are not improving. Constipation-add miralax scheduled-milk of magnesia today . Admit for pain control and imaging - discussed with patient - this is an observation admission - cost will be directed to her from medicare since they do not pay for medications during an observation admission. ensure twice daily voltaren gel to hands, hips qid mix ketoconazole/triamcinolone cream and apply to rash bid x 10 days then as needed . Dysphagia-recommend patient f/u with Dr Shukla Seborrheic dermatitis-mix ketoconazole and triamcinolone cream and apply BID OA-hands, shoulders, hips-RX for voltaren gel Weight loss-increase ensure to BID-f/u weight in 1 month . Chronic pain-sacral fx-hospital follow up-pain improving- no changes Thoracic back nvzl-bhh-fhjv xray thoracic spine to evaluate for compression fracture-instructed [facility] to give patient a pain pill for pain if due and to call the office if not due yet . Left wrist pain-xray left wrist-recent fall Arthritis- occasionally uncontrolled symptoms- recommend pt to take antiinflammatory as directed for pain control. Use tylenol for break through pain symptoms. Atrial Fibrillation - pt on chronic anticoagulation and is currently rate controlled. The pt is to have labs done as appropriate to monitor medication levels and is to report if they start to feel as if their heart rate is becoming uncontrolled. Hypothyroidism - pt with chronic hypothyroidism, continue with current medication, will monitor pt to signs or symptoms of lack of adequate supplementation. Pt is to continue with current dose of medication unless directed otherwise. Check labs at regular intervals wither q 3 months or q 6 months based on previous levels of control. Urinary frequency-but patient isn't able to void with each attempt-plan to check UA with C&S if indicated . Acute on Chronic pain syndrome - pt reports uncontrolled symptoms, hip and back pain - will order x-ray, will increase pain medication, pt is to notify clinic if pain is being uncontrolled. . Chronic pain - ucontrolled - recommeded the following: increased fentanyl to 150mcg - pt requested that her oxycodone dose be increased , but that is not appropriate at this time. Esophageal Reflux - the patient has been counseled against excessive intake of caffeine, spicy foods, peppermint, and cinnamon - all of which can exacerbate esophageal reflux. The patient is to take medications as prescribed and call the office if the symptoms are not improving. constipation- chronic - refilled miralax. . Acute on Chronic pain syndrome - pt reports uncontrolled symptoms, hip and back pain - recommended pt to have further imaging as she may have a sub-acute fracture that was not seen on previous imaging. . Hypothyroidism - pt with chronic hypothyroidism, continue with current medication, will monitor pt to signs or symptoms of lack of adequate supplementation. Pt is to continue with current dose of medication unless directed otherwise. Check labs at regular intervals wither q 3 months or q 6 months based on previous levels of control. Chronic Pain Syndrome - pt has chronic pain - has been maintained on current medications, has not sought out other medications, only uses PRN pain medications as directed, and understands the consequences of over-medication. . Constipation - uncontrolled - I have discussed with the patient the need for adequate fiber and water intake to facilitate soft, easily passed stools. The pt noted understanding of our conversation. I have given the patient a recipe for "power pudding" - equal parts, bran flakes, prune juice , and apple sauce. The pt is to call if symptoms not improved on this regimen. Malaise, fatigue, intermittent shortness of breath - will check labs, pt is to notify clinic if symptoms do not improve, if they worsen, or with any questions or concerns. . Decreased appetite, increased depression - will start remeron, pt and detention staff to monitor symptoms - notify clinic if symptoms do not improve, if they worsen, or with any questions or concerns. Tinea - will send RX for ketoconazole shampoo - pt is to notify clinic if symptoms do not improve, if they worsen, or with any questions or concerns. shortness of breath - will check x-ray if symptoms do not improve. . Left shoulder pain-history of fracture-recommend PT- patient will consider Rash--hold voltaren gel-use nystatin/triamcinolone cream as directed-follow up in 2 weeks if rash not resolved . Dysphagia - monitor symptoms - dc premarin due to pt's insurance not paying. Hypothyroidism - pt with chronic hypothyroidism, continue with current medication, will monitor pt to signs or symptoms of lack of adequate supplementation. Pt is to continue with current dose of medication unless directed otherwise. Check labs at regular intervals wither q 3 months or q 6 months based on previous levels of control. Pain in shoulder - continue with voltaren. . Chronic constipation - start amitiza 24mg daily Chronic pain syndrome - continue with chronic pain medication - start physical therapy for back pain. Generalized Anxiety - continue with chronic medications. CLARITIN 10MG DAILY . Allergies - chronic - recommended pt to use allergy medication as prescribed. Pt has been counseled as to the appropriate use of the medication. Pt to call if allergy symptoms are not controlled with the medication. If using nasal spray, instructions as follows: Nasal spray- use twice daily, one spray per nostril twice daily, after 30 minutes, rinse out nose with saline spray.. Use opposite hand per nostril to spray in the nasal steroid allergy spray. Tinea-RX for ketoconazole cream -patient does not want the shampoo [id number] well controlled-no change in medications . Chronic pain - low back pain - hx of lumbar compression fractures - Referral to Dr. Healy for pain injections. Pt has a conflicting reports compared to the nursing staff. She reports that she never asks for her pain medication early. However per nursing staff, pt often asks for her pain medication within 1-2 hours of getting her medications administered. I have tried to discuss this with the patient, but she is not willing to talk about the medication, just keeps stating that she is in pain and asking if I have any medication available to give her today. I asked Aarti to wait for me while I went into my office to talk to the nurses at the detention about her pain and the pain medication regimen. They reported that they have extensive documentation of Aarti asking for pain medication early and they also have documentation of Aarti being excessively groggy while still asking for pain medication. I went back to the room to talk to Aarti and she had decided that she was done waiting for me to talk to the nursing staff and wheeled herself out of the room and asked my staff to help her to the waiting room. She was not interested in coming back to the room to talk, she just wanted to go back to the detention and receive her pain medication. Anxiety - pt has prn xanax. Atrial Fibrillation - pt on chronic anticoagulation and is currently rate controlled. The pt is to have labs done as appropriate to monitor medication levels and is to report if they start to feel as if their heart rate is becoming uncontrolled. . Chronic Pain Syndrome - pt has chronic pain - pt and family denies that she is asking for pain medication early or misusing pain medication, they are upset that the nursing staff is reporting this - Discussed with Dr. Lemus - the pt and family are to consider a referral to a aircraft painter apprentice. Chronic Depression and anxiety - the pt has symptoms of chronic anxiety and depression that have been fairly well controlled since the last office visit. The pt has expected periods of exacerbation with abatement of the symptoms with change in situational exposure. No change in current medications. . Anxiety - the patient has uncontrolled anxiety and will benefit from a very low dose of prn benzodiazepine to attempt control of the symptoms of anxiety (tachycardia, overwhelming sensations, stress, insomnia, etc ). . Pt is aware of the risks and benefits of treatment with the above medications. Esophageal Reflux/spasms - pt is to reschedule procedure with Dr. Shukla - the patient has been counseled against excessive intake of caffeine, spicy foods, peppermint, and cinnamon - all of which can exacerbate esophageal reflux. The patient is to take medications as prescribed and call the office if the symptoms are not improving.
--- OUTSIDE RECORDS SUMMARY | 2017-11-16 09:25 | XMS REPORT | CCD ---
Author Author [facility] Organization [facility] Address [address] [place] [address] Phone Care Team Providers Care Bull Fiddle Player Name Role Phone PP Unavailable CCM Unavailable Summary Purpose Interface Exchange Insurance Providers Payer name Policy type / Coverage type Covered democrat ID Effective Begin Date Effective End Date WPS Medicare Part B Medicare Part B [id number] Unknown Unknown [facility] Medicare Part B [id number] Unknown Unknown [employer] - Medicare Part B [id number] Unknown Unknown Family history Father Diagnosis Age At Onset Depression Unknown Runs in the family Diagnosis Age At Onset Atrial fibrillation Unknown Brother Diagnosis Age At Onset Atrial fibrillation Unknown Social History Social History Element Codes Description Effective Dates Living arrangements Unknown Detention VCV 01/19/2016 Employment Unknown Retired worked at the [employer] 07/26/[address]: 615916483 Never smoker but was exposed to smoke at work 07/26/2015 Marital status Unknown 02/08/2015 Number of children Unknown 6 02/08/2015 Allergies, Adverse Reactions, Alerts Allergies, Adverse Reactions, Alerts data not found Past Medical History Illness Codes Condition Status Onset Date Resolved Date Chronic pain syndrome ICD-9: 338.4 ICD-10: G89.4 Active 05/11/2017 Unknown Contact with and (suspected) exposure to other viral communicable diseases ICD-9: V01.79 ICD-10: Z20.828 Active 09/06/2017 Unknown Cough ICD-9: 786.2 ICD-10: R05 Active 09/06/2017 Unknown Other general symptoms and signs ICD-9: 780.99 ICD-10: R68.89 Active 09/06/2017 Unknown Chronic atrial fibrillation ICD-9: 427.31 ICD-10: I48.2 Active 11/03/2015 Unknown Generalized anxiety disorder ICD-9: 300.00 ICD-10: [...] Condition Codes Effective Dates Condition Status Chronic pain syndrome ICD-9: 338.4 ICD-10: G89.4 05/11/2017 Active Contact with and (suspected) exposure to other viral communicable diseases ICD-9: V01.79 ICD-10: Z20.828 09/06/2017 Active Cough ICD-9: 786.2 ICD-10: R05 09/06/2017 Active Other general symptoms and signs ICD-9: 780.99 ICD-10: R68.89 09/06/2017 Active Chronic atrial fibrillation ICD-9: 427.31 ICD-10: I48.2 11/03/2015 Active Generalized anxiety disorder ICD-9: 300.00 ICD-10: [...] Start Date Stop Date Status Fill Instructions Duragesic 100 mcg/hr transdermal patch RxNorm: 846460 1 Patch TD Q72H 09/06/2017 10/05/2017 Active oxycodone 15 mg tablet RxNorm: 3754699 1-2 Tablet(s) PO Q4H as needed moderate or severe pain 09/06/2017 09/21/2017 Active Duragesic 50 mcg/hr transdermal patch RxNorm: 857710 1 Patch TD Q72H in addition to the 100mcg patch 09/06/2017 10/05/2017 Active Duragesic 50 mcg/hr transdermal patch RxNorm: 274831 1 Patch TD Q72H in addition to the 100mcg patch 08/15/2017 09/05/2017 Inactive Xanax 0.25 mg tablet RxNorm: 740324 1 Tablet(s) PO QHS 201612/07/2017 Active oxycodone 15 mg tablet RxNorm: 4674103 1-2 Tablet(s) PO Q4H as needed moderate or severe pain 08/08/2017 08/23/2017 Inactive Duragesic 50 mcg/hr transdermal patch RxNorm: 824081 1 Patch TD Q72H in addition to the 100mcg patch 07/31/2017 08/14/2017 Inactive Duragesic 100 mcg/hr transdermal patch RxNorm: 186784 1 Patch TD Q72H 07/16/2017 08/14/2017 Inactive oxycodone 15 mg tablet RxNorm: 9965922 1-2 Tablet(s) PO Q4H as needed moderate or severe pain 06/26/2017 07/11/2017 Inactive Xanax 0.25 mg tablet RxNorm: 755367 1 Tablet(s) PO BID 201608/09/2017 Inactive Miralax 17 gram oral powder packet RxNorm: 821354 17 Gram(s) PO every other day as needed constipation 05/28/2017 No Stop Date Active Nexium 20 mg capsule,delayed release RxNorm: 840998 1 Capsule(s) PO daily 05/28/2017 No Stop Date Active Duragesic 50 mcg/hr transdermal patch RxNorm: 978413 1 Patch TD Q72H in addition to the 100mcg patch 05/28/2017 06/26/2017 Inactive Duragesic 25 mcg/hr transdermal patch RxNorm: 761176 1 Patch TD Q72H . Use with 100 mcg patch 05/22/2017 05/27/2017 Inactive oxycodone 15 mg tablet RxNorm: 2087644 1-2 Tablet(s) PO Q4H as needed moderate or severe pain 05/22/2017 06/06/2017 Inactive Duragesic 100 mcg/hr transdermal patch RxNorm: 852764 1 Patch TD Q72H 05/22/2017 06/20/2017 Inactive Xanax 0.25 mg tablet RxNorm: 519310 1 Tablet(s) PO TID as needed anxiety 05/21/2017 06/25/2017 Inactive Duragesic 100 mcg/hr transdermal patch RxNorm: 632147 1 Patch TD Q72H 05/09/2017 05/21/2017 Inactive oxycodone 15 mg tablet RxNorm: 4830038 1 Tablet(s) PO Q6 201605/21/2017 Inactive Xanax 0.25 mg tablet RxNorm: 388367 1 Tablet(s) PO TID as needed 04/09/2017 No Stop Date Active Duragesic 100 mcg/hr transdermal patch RxNorm: 226139 1 Patch TD Q72H 04/03/2017 05/02/2017 Inactive oxycodone 15 mg tablet RxNorm: 0754084 1 Tablet(s) PO Q6 201604/24/2017 Inactive Duragesic 100 mcg/hr transdermal patch RxNorm: 828260 1 Patch TD Q72H 03/01/2017 03/30/2017 Inactive Voltaren 1 % topical gel RxNorm: 290265 4 Gram(s) TOP QID 02/2605/27/2017 Inactive oxycodone 15 mg tablet RxNorm: 0431130 1 Tablet(s) PO Q6 201603/23/2017 Inactive Duragesic 100 mcg/hr transdermal patch RxNorm: 191986 1 Patch TD Q72H 01/30/2017 02/28/2017 Inactive oxycodone 15 mg tablet RxNorm: 5207658 1 Tablet(s) PO Q6 201602/21/2017 Inactive oxycodone 15 mg tablet RxNorm: 7019628 1 Tablet(s) PO Q6 201601/23/2017 Inactive Duragesic 100 mcg/hr transdermal patch RxNorm: 821358 1 Patch TD Q72H 01/01/2017 01/29/2017 Inactive lubiprostone 24 mcg capsule RxNorm: 013786 1 Capsule(s) PO daily 12/22/2016 05/27/2017 Inactive Duragesic 100 mcg/hr transdermal patch RxNorm: 579508 1 Patch TD Q72H 12/08/2016 12/31/2016 Inactive oxycodone 15 mg tablet RxNorm: 1201164 1 Tablet(s) PO Q6 201612/26/2016 Inactive Nexium 20 mg capsule,delayed release RxNorm: 808454 1 Capsule(s) PO BID 11/23/2016 05/27/2017 Inactive Miralax 17 gram oral powder packet RxNorm: 754954 17 Gram(s) PO Q72H 11/23/2016 05/27/2017 Inactive Duragesic 100 mcg/hr transdermal patch RxNorm: 896922 1 Patch TD Q72H 11/16/2016 12/07/2016 Inactive ketoconazole 1 % shampoo RxNorm: 657142 1 Application TOP daily 11/15/2016 11/19/2016 Inactive Duragesic 100 mcg/hr transdermal patch RxNorm: 622359 1 Patch TD Q72H 10/16/2016 11/14/2016 Inactive oxycodone 15 mg tablet RxNorm: 3010742 1 Tablet(s) PO Q6 201611/01/2016 Inactive Xanax 0.25 mg tablet RxNorm: 989587 1 Tablet(s) PO TID as needed 09/21/2016 04/08/2017 Inactive Xanax 0.25 mg tablet RxNorm: 207253 1 Tablet(s) PO TID as needed anxiety 09/15/2016 10/14/2016 Inactive Xanax 0.25 mg tablet RxNorm: 746076 1 Tablet(s) PO TID as needed anxiety 09/15/2016 09/14/2016 Inactive Duragesic 100 mcg/hr transdermal patch RxNorm: 997321 1 Patch TD Q72H 09/13/2016 10/12/2016 Inactive oxycodone 15 mg tablet RxNorm: 8337828 1 Tablet(s) PO Q6 201508/30/2016 Inactive Duragesic 100 mcg/hr transdermal patch RxNorm: 227354 1 Patch TD Q72H 08/10/2016 09/08/2016 Inactive oxycodone 15 mg tablet RxNorm: 0520933 1 Tablet(s) PO Q6 201508/15/2016 Inactive oxycodone 15 mg tablet RxNorm: 4235549 1 Tablet(s) PO Q6 201508/06/2016 Inactive Duragesic 100 mcg/hr transdermal patch RxNorm: 447215 1 Patch TD Q72H 07/27/2016 08/09/2016 Inactive oxycodone 15 mg tablet RxNorm: 7769081 1 Tablet(s) PO Q6 201507/30/2016 Inactive Duragesic 100 mcg/hr transdermal patch RxNorm: 549321 1 Patch TD Q72H 06/29/2016 07/26/2016 Inactive oxycodone 15 mg tablet RxNorm: 1444277 1 Tablet(s) PO Q6 201507/13/2016 Inactive Duragesic 100 mcg/hr transdermal patch RxNorm: 427099 1 Patch TD Q72H 05/31/2016 06/28/2016 Inactive oxycodone 15 mg tablet RxNorm: 2469656 1 Tablet(s) PO Q6 201506/28/2016 Inactive Duragesic 100 mcg/hr transdermal patch RxNorm: 519162 1 Patch TD Q72H 05/01/2016 05/30/2016 Inactive oxycodone 15 mg tablet RxNorm: 3704329 1 Tablet(s) PO Q6 201505/27/2016 Inactive oxycodone 15 mg tablet RxNorm: 4399067 1 Tablet(s) PO QID 04/1704/27/2016 Inactive oxycodone 10 mg tablet RxNorm: 3761592 1 Tablet(s) PO Q4H 04/1404/16/2016 Inactive oxycodone 10 mg tablet RxNorm: 0443784 1 Tablet(s) PO Q4H 03/3004/13/2016 Inactive Duragesic 100 mcg/hr transdermal patch RxNorm: 053211 1 Patch TD Q72H 03/21/2016 04/19/2016 Inactive Duragesic 100 mcg/hr transdermal patch RxNorm: 562350 1 Patch TD Q72H 03/01/2016 03/20/2016 Inactive oxycodone 10 mg tablet RxNorm: 0270088 1 Tablet(s) PO Q4H 02/1403/15/2016 Inactive ketorolac 30 mg/mL injection solution RxNorm: 273951 2 Milliliter(s) Inj 02/03/2016 02/03/2016 Inactive Duragesic 100 mcg/hr transdermal patch RxNorm: 933681 1 Patch TD Q72H 02/03/2016 02/29/2016 Inactive fentanyl 75 mcg/hr transdermal patch RxNorm: 656516 1 TD Q72H 01/31/2016 02/02/2016 Inactive [SAVINGS FOR NON-COVERED DRUGS -- BIN:[id number], PCN: ASPROD1, Group: XXXXX, ID# [id number], Questions: . THIS IS NOT INSURANCE.] fentanyl 75 mcg/hr transdermal patch RxNorm: 548415 1 TD Q72H 01/27/2016 01/30/2016 Inactive [SAVINGS FOR NON-COVERED DRUGS -- BIN:[id number], PCN: ASPROD1, Group: XXXXX, ID# XXXXXXX, Questions: . THIS IS NOT INSURANCE.] Voltaren 1 % topical gel RxNorm: 526761 4 Gram(s) TOP R hip and 1 Gram TOP L wrist QID 01/19/2016 05/27/2017 Inactive Voltaren 1 % topical gel RxNorm: 859090 2 Gram(s) TOP R hip and 1 Gram TOP L wrist QID as needed 01/19/2016 05/27/2017 Inactive oxycodone 10 mg tablet RxNorm: 9895987 1 Tablet(s) PO Q4H 01/0202/01/2016 Inactive fentanyl 75 mcg/hr transdermal patch RxNorm: 014478 1 TD Q72H 01/03/2016 01/26/2016 Inactive [SAVINGS FOR NON-COVERED DRUGS -- BIN:704650, PCN: ASPROD1, Group: XXXXX, ID# XXXXXXX, Questions: . THIS IS NOT INSURANCE.] Biotene mouthwash RxNorm: 1 Tablespoon(s) MM BID 201501/18/2016 Inactive Biotene mouthwash RxNorm: 1 Tablespoon(s) MM BID 201512/01/2015 Inactive oxycodone 10 mg tablet RxNorm: 6029319 1 Tablet(s) PO Q4H 12/0112/31/2015 Inactive fentanyl 75 mcg/hr transdermal patch RxNorm: 889548 1 TD Q72H 11/29/2015 01/02/2016 Inactive [SAVINGS FOR NON-COVERED DRUGS -- BIN:[id number], PCN: ASPROD1, Group: XXXXX, ID# XXXXXXX, Questions: . THIS IS NOT INSURANCE.] oxycodone 10 mg tablet RxNorm: 6640028 1 Tablet(s) PO Q4H 10/3111/30/2015 Inactive fentanyl 75 mcg/hr transdermal patch RxNorm: 567532 1 TD q 3 days 11/01/2015 11/28/2015 Inactive [SAVINGS FOR NON-COVERED DRUGS -- BIN:443249, PCN: ASPROD1, Group: XXXXX, ID# XXXXXXX, Questions: . THIS IS NOT INSURANCE.] oxycodone 10 mg tablet RxNorm: 8386674 1 Tablet(s) PO Q4H 09/2810/27/2015 Inactive fentanyl 75 mcg/hr transdermal patch RxNorm: 517366 1 TD q 3 days 09/28/2015 10/31/2015 Inactive [SAVINGS FOR NON-COVERED DRUGS -- BIN:[id number], PCN: ASPROD1, Group: XXXXX, ID# XXXXXXX, Questions: . THIS IS NOT INSURANCE.] fentanyl 75 mcg/hr transdermal patch RxNorm: 366724 1 TD q 3 days 08/26/2015 09/27/2015 Inactive [SAVINGS FOR NON-COVERED DRUGS -- BIN:713543, PCN: ASPROD1, Group: XXXXX, ID# XXXXXXX, Questions: . THIS IS NOT INSURANCE.] fentanyl 75 mcg/hr transdermal patch RxNorm: 997407 1 TD q 3 days 08/02/2015 08/25/2015 Inactive [SAVINGS FOR NON-COVERED DRUGS -- BIN:625639, PCN: ASPROD1, Group: XXXXX, ID# XXXXXXX, Questions: . THIS IS NOT INSURANCE.] oxycodone 10 mg tablet RxNorm: 2045523 1 Tablet(s) PO Q4H 07/1908/17/2015 Inactive fentanyl 75 mcg/hr transdermal patch RxNorm: 200225 1 TD q 3 days 07/01/2015 08/01/2015 Inactive [SAVINGS FOR NON-COVERED DRUGS -- BIN:105312, PCN: ASPROD1, Group: XXXXX, ID# XXXXXXX, Questions: . THIS IS NOT INSURANCE.] oxycodone 10 mg tablet RxNorm: 3888843 1 Tablet(s) PO Q4H 06/0807/07/2015 Inactive fentanyl 75 mcg/hr transdermal patch RxNorm: 946111 1 TD q 3 days 06/02/2015 06/30/2015 Inactive [SAVINGS FOR NON-COVERED DRUGS -- BIN:536516, PCN: ASPROD1, Group: XXXXX, ID# XXXXXXX, Questions: . THIS IS NOT INSURANCE.] oxycodone 10 mg tablet RxNorm: 6641650 1 Tablet(s) PO Q4H 06/0206/07/2015 Inactive oxycodone 10 mg tablet RxNorm: 9845102 1 Tablet(s) PO Q4H 05/3106/01/2015 Inactive fentanyl 75 mcg/hr transdermal patch RxNorm: 465009 1 TD q 3 days 05/03/2015 06/01/2015 Inactive [SAVINGS FOR NON-COVERED DRUGS -- BIN:652561, PCN: ASPROD1, Group: XXXXX, ID# XXXXXXX, Questions: . THIS IS NOT INSURANCE.] oxycodone 10 mg tablet RxNorm: 2036958 1 Tablet(s) PO Q4H 05/0305/30/2015 Inactive oxycodone 10 mg tablet RxNorm: 5880187 1 Tablet(s) PO Q4H 03/2904/27/2015 Inactive fentanyl 75 mcg/hr transdermal patch RxNorm: 051230 1 TD q 3 days 03/16/2015 05/02/2015 Inactive [SAVINGS FOR NON-COVERED DRUGS -- BIN:[id number], PCN: ASPROD1, Group: XXXXX, ID# XXXXXXX, Questions: . THIS IS NOT INSURANCE.] oxycodone 10 mg tablet RxNorm: 1861144 1 Tablet(s) PO Q4H as needed 03/04/2015 03/28/2015 Inactive fentanyl 75 mcg/hr transdermal patch RxNorm: 140534 1 TD q 3 days 02/02/2015 03/15/2015 Inactive [SAVINGS FOR NON-COVERED DRUGS -- BIN:831455, PCN: ASPROD1, Group: XXXXX, ID# XXXXXXX, Questions: . THIS IS NOT INSURANCE.] oxycodone 10 mg tablet RxNorm: 4175671 1 Tablet(s) PO Q4H as needed 01/28/2015 02/26/2015 Inactive fentanyl 75 mcg/hr transdermal patch RxNorm: 229197 1 TD q 3 days 01/04/2015 02/01/2015 Inactive [SAVINGS FOR NON-COVERED DRUGS -- BIN:[id number], PCN: ASPROD1, Group: XXXXX, ID# XXXXXXX, Questions: . THIS IS NOT INSURANCE.] oxycodone 10 mg tablet RxNorm: 0328457 1 Tablet(s) PO Q4H as needed 12/28/2014 01/26/2015 Inactive aspirin 81 mg tablet RxNorm: 738330 1 Tablet(s) PO daily No Start Date Active Culturelle 10 billion cell capsule RxNorm: 566212 1 Capsule(s) PO BID No Start Date Active citalopram 20 mg tablet RxNorm: 729867 1 Tablet(s) PO daily No Start Date Active bisacodyl 10 mg rectal suppository RxNorm: 972696 1 Suppository RTL PRN No Start Date Active levothyroxine 50 mcg tablet RxNorm: 725484 1 Tablet(s) PO daily No Start Date Active digoxin 125 mcg tablet RxNorm: 183227 1 Tablet(s) PO daily No Start Date Active multivitamin capsule RxNorm: 1 Capsule(s) PO daily No Start Date Active Mylanta oral RxNorm: 653014 oral No Start Date Active Tylenol 325 mg tablet RxNorm: 147756 2 Tablet(s) PO as needed No Start Date Active Estrace 0.01% (0.1 mg/gram) vaginal cream RxNorm: 446400 1 Gram(s) VAG QW No Start Date Active doxepin 10 mg capsule RxNorm: 4673375 1 Capsule(s) PO daily No Start Date Active loperamide 2 mg tablet RxNorm: 836429 1 Tablet(s) PO Q2H as needed 1 cap after each loose stool, not to exceed 4/24 hours No Start Date Active Zofran 4 mg tablet RxNorm: 466328 1 Tablet(s) PO Q6 as needed No Start Date Active loratadine 10 mg tablet RxNorm: 577545 1 Tablet(s) PO daily No Start Date Active Vitamin D3 2,000 unit tablet RxNorm: 584203 1 Tablet(s) PO daily No Start Date Active Xarelto 15 mg tablet RxNorm: 1238518 1 Tablet(s) PO daily No Start Date Active Gas-X Extra Strength 125 mg chewable tablet RxNorm: 211590 1 Tablet(s) PO TID as needed gas pain No Start Date Active Milk of Magnesia oral RxNorm: 6581 oral No Start Date Active calcium 500 mg tablet RxNorm: 2 Tablet(s) PO daily No Start Date Active Colace 100 mg capsule RxNorm: 5008793 1 Capsule(s) PO daily No Start Date Active triamcinolone acetonide 0.1 % topical ointment RxNorm: 9302568 TOP daily as needed seborrheic dermatitis No Start Date Active Movantik 25 mg tablet RxNorm: 2035356 1 Tablet(s) PO daily No Start Date Active Vitamin B12 500 mcg RxNorm: 1 Tablet(s) PO daily No Start Date 05/27/2017 Inactive Voltaren 1 % topical gel RxNorm: 462202 4 Gram(s) TOP to shoulders, R hip QID as needed No Start Date 01/18/2016 Inactive Vitamin D2 1,000 unit capsule RxNorm: 804087 2 Capsule(s) PO No Start Date 01/19/2016 Inactive Xanax 0.5 mg tablet RxNorm: 664977 1 Tablet(s) PO Q6 as needed No Start Date 01/18/2016 Inactive calcitonin (salmon) 200 unit/actuation nasal spray RxNorm: 786444 1 [place] NASAL daily No Start Date 05/27/2017 Inactive Miralax 17 gram oral powder packet RxNorm: 120932 PO as needed No Start Date 11/22/2016 Inactive Premarin 0.625 mg/gram vaginal cream RxNorm: 285024 1 Gram(s) VAG one time per week No Start Date 01/13/2016 Inactive Xarelto 20 mg tablet RxNorm: 0037928 1 Tablet(s) PO daily No Start Date 05/27/2017 Inactive Vitamin B-12 1,000 mcg tablet RxNorm: 841101 2 Tablet(s) PO daily No Start Date 05/27/2017 Inactive mirtazapine 7.5 mg tablet RxNorm: 847820 1 Tablet(s) PO QHS No Start Date 05/27/2017 Inactive Nexium 40 mg capsule,delayed release RxNorm: 685317 1 Capsule(s) PO daily No Start Date 11/22/2016 Inactive fentanyl 75 mcg/hr transdermal patch RxNorm: 283884 1 TD q 3 days No Start Date 01/03/2015 Inactive Voltaren 1 % topical gel RxNorm: 299739 1 Gram(s) TOP QID Left wrist No Start Date 01/18/2016 Inactive Medication Administered Medication Codes Instructions Start Date Status ketorolac 30 mg/mL injection solution RxNorm: 810499 2Milliliter 02/03/2016 No longer Active Immunizations No Immunization data Assessments Condition Codes Effective Dates Contact with and (suspected) exposure to other viral communicable diseases ICD-10: Z20.828 ICD-9: V01.79 09/06/2017 Chronic pain syndrome ICD-10: G89.4 ICD-9: 338.4 09/06/2017 Cough ICD-10: R05 ICD-9: 786.2 09/06/2017 Other general symptoms and signs ICD-10: R68.89 ICD-9: 780.99 09/06/2017 Chronic atrial fibrillation ICD-10: I48.2 ICD-9: 427.31 07/05/2017 Generalized anxiety disorder ICD-10: F41.1 ICD-9: [...] Visit Reason For Visit Effective Dates Notes dyspnea 09/06/2017 pain 07/05/2017 pain 06/21/2017 Hospital Follow Up [...] Item Item Code Result Date Comp Metabolic Jls361 NA 132 mEq/L 10/05/2016 Comp Metabolic Xri239 K 4.1 mEq/L 10/05/2016 Comp Metabolic Osd457 CL 96 mEq/L 10/05/2016 Comp Metabolic Agt034 CO2 27.0 mEq/L 10/05/2016 Comp Metabolic Enh773 ANION GAP 13 10/05/2016 Comp Metabolic Bsb689 GLUCOSE 93 mg/dL 10/05/2016 Comp Metabolic Rlb174 Creat 0.6 mg/dL 10/05/2016 Comp Metabolic Amx574 eGFR 104 ml/min/1.73m2 10/05/2016 Comp Metabolic Wem288 BUN 13 mg/dL 10/05/2016 Comp Metabolic Wwn455 B/C Ratio 22.4 Ratio 10/05/2016 Comp Metabolic Chr894 CALCIUM 9.5 mg/dL 10/05/2016 Comp Metabolic Ucj608 ALK PHOS 46 U/L 10/05/2016 Comp Metabolic Dis512 AST(SGOT) 15 U/L 10/05/2016 Comp Metabolic Buf082 ALT(SGPT) 8 U/L 10/05/2016 Comp Metabolic Fkd418 BILI T 0.5 mg/dL 10/05/2016 Comp Metabolic Vhe043 ALBUMIN 4.0 g/dL 10/05/2016 Comp Metabolic Prn020 TPRO 7.3 g/dL 10/05/2016 Comp Metabolic Rvl838 GLOB 3.3 g/dL 10/05/2016 Comp Metabolic Fwd077 A/G Ratio 1.2 Ratio 10/05/2016 Comp Metabolic Anx454 Osmo 264 mOsmo 10/05/2016 Cbc With Differential Ord2 WBC 6.16 K/ul 10/05/2016 Cbc With Differential Ord2 RBC 3.98 M/ul 10/05/2016 Cbc With Differential Ord2 HGB 12.1 g/dl 10/05/2016 Cbc With Differential Ord2 Neut% 73.8 % 10/05/2016 Cbc With Differential Ord2 HCT 37.6 % 10/05/2016 Cbc With Differential Ord2 Lymph% 18.7 % 10/05/2016 Cbc With Differential Ord2 MCV 94.5 fl 10/05/2016 Cbc With Differential Ord2 Kings% 6.0 % 10/05/2016 Cbc With Differential Ord2 MCH 30.4 pg 10/05/2016 Cbc With Differential Ord2 Eos% 1.3 % 10/05/2016 Cbc With Differential Ord2 MCHC 32.2 pg 10/05/2016 Cbc With Differential Ord2 PLT 279 K/ul 10/05/2016 Cbc With Differential Ord2 Baso% 0.2 % 10/05/2016 Cbc With Differential Ord2 Neut ABS# 4.55 K/ul 10/05/2016 Cbc With Differential Ord2 RDW 14.2 % 10/05/2016 Cbc With Differential Ord2 Lymph ABS# 1.15 K/ul 10/05/2016 Cbc With Differential Ord2 Kings ABS# 0.4 K/ul 10/05/2016 Cbc With Differential Ord2 Eos ABS# 0.1 K/ul 10/05/2016 Cbc With Differential Ord2 Baso ABS# 0.0 K/ul 10/05/2016 Review of Systems System Result Effective Dates Constitutional recent illness 09/06/2017 Constitutional No chills 09/06/2017 Constitutional No diaphoresis 09/06/2017 Constitutional fatigue 09/06/2017 Constitutional fever 09/06/2017 Constitutional No insomnia 09/06/2017 Constitutional malaise 09/06/2017 Eyes No eye discharge 09/06/2017 Eyes No eye erythema 09/06/2017 Ears/Nose/Throat/Neck No dental pain Cardiovascular No chest pain/pressure Respiratory cough 09/06/2017 Gastrointestinal No abdominal pain 2017 Gastrointestinal constipation 09/06/2017 Gastrointestinal gastroesophageal reflux 09/06/2017 Musculoskeletal back pain 09/06/2017 Musculoskeletal joint complaint 2017 Dermatologic No rash 09/06/2017 Neurologic No alteration of consciousness 09/06/2017 Psychiatric anxiety 09/06/2017 Respiratory chest tightness 09/06/2017 Respiratory productive sputum 09/06/2017 Respiratory No foul smelling sputum 09/06 Constitutional No recent illness 2016 Constitutional No [...] 1994 Constitutional general appearance Overall: well developed 09/06/2017 None Full Exam - General 1994 Constitutional general appearance Overall: well nourished 09/06/2017 None Full Exam - General 1994 Ears/Nose/Throat otoscopic exam Overall: external auditory canals clear 09/06/2017 None Full Exam - General 1994 Ears/Nose/Throat otoscopic exam Overall: tympanic membranes clear 09/06/2017 None Full Exam - General 1994 Ears/Nose/Throat lips/teeth/gingiva Overall: benign lips 09/06/2017 None Full Exam - General 1994 Ears/Nose/Throat oral cavity/pharynx/larynx Overall: oral mucosa clear 09/06/2017 None Full Exam - General 1994 Ears/Nose/Throat oral cavity/pharynx/larynx Overall: oropharyngeal mucosa clear 09/06/2017 None Full Exam - General 1994 Ears/Nose/Throat oral cavity/pharynx/larynx Overall: no masses 09/06/2017 None Full Exam - General 1994 Respiratory auscultation Overall: breath sounds clear bilaterally 09/06/2017 None Full Exam - General 1994 Respiratory respiratory effort/rhythm Overall: no retractions 09/06/2017 None Full Exam - General 1994 Respiratory respiratory effort/rhythm Overall: normal rate 09/06/2017 None Full Exam - General 1994 Cardiovascular extremities Overall: no clubbing 09/06/2017 None Full Exam - General 1994 Cardiovascular auscultation of heart Overall: regular rate 09/06/2017 None Full Exam - General 1994 Cardiovascular auscultation of heart Overall: normal heart sounds 09/06/2017 None Full Exam - General 1994 Cardiovascular auscultation of heart Overall: no murmurs 09/06/2017 None Full Exam - General 1994 Abdomen abdominal exam Overall: no tenderness 09/06/2017 None Full Exam - General 1994 Abdomen abdominal exam Overall: normal bowel sounds 09/06/2017 None Full Exam - General 1994 Abdomen liver and spleen exam Overall: no hepatosplenomegaly 09/06/2017 None Full Exam - General 1994 Abdomen liver and spleen exam Overall: no stigmata of chronic liver disease 09/06/2017 None Full Exam - General 1994 Lymphatic neck nodes Overall: anterior cervical chain benign 09/06/2017 None Full Exam - General 1994 Lymphatic neck nodes Overall: posterior cervical chain benign 09/06/2017 None Full Exam - General 1994 Musculoskeletal spine, ribs and pelvis Posture: kyphosis 09/06/2017 None Full Exam - General 1994 Musculoskeletal spine, ribs and pelvis Spine: tender @ thoracic spine 09/06/2017 None Full Exam - General 1994 Psychiatric orientation/consciousness Overall: oriented to person, place and time 09/06/2017 None Full Exam - General 1994 Psychiatric mood and affect Overall: normal mood and affect 09/06/2017 None Full Exam - General 1994 Psychiatric mood and affect Mood: flat 09/06/2017 None Full Exam - General 1994 Eyes pupils and irises Overall: pupils equal, round, reactive to light and accomodation 09/06/2017 None Full Exam - General 1994 Constitutional [...] CPT-4: J1885 02/03/2016 THER/PROPH/DIAG INJ SC/IM CPT-4: 83697 02/03/2016 Vital Signs Date Vital 09/06/2017 Blood Pressure 1: 136/80 Code : 8480-6 Heart Rate 1: 108 bpm Height: SpO2: 99% Temperature: 37.3 (C) / 99.2 (F) Weight: 07/05/2017 Blood Pressure 1: 136/78 Code : [...] Code : 8480-6 BMI: 25.3 Code : 30125-6 Heart Rate 1 : 70 bpm Height: 4'10" SpO2: 92% Weight: 121 lbs 02/26/2017 Blood Pressure 1: 126/70 Code : 8480-6 BMI: 24.2 Code : 51763-3 Heart Rate 1 : 101 bpm Height: 4'10 " SpO2: 92% Weight: 116 lbs 02/12/2017 Blood Pressure 1: 116/70 Code : 8480-6 BMI: 25.0 Code : 72629-3 Heart Rate 1 : 91 bpm Height: 4'10" SpO2: 92% Weight: 119 lbs 8 oz 11/23/2016 Blood Pressure 1: 112/82 Code : 8480-6 Heart Rate 1: 102 bpm Height: 4'10" SpO2: 93% Weight: 11/06/2016 Blood Pressure 1: 110/64 Code : 8480-6 Heart Rate 1: 97 bpm Height: 4'10" SpO2: 99% Weight: 10/05/2016 Blood Pressure 1: 134/76 Code : 8480-6 BMI: 23.6 Code : 69772-6 Heart Rate 1 : 96 bpm Height: 4'10" SpO2: 95% Weight: 113 lbs 09/14/2016 Blood Pressure 1: 130/72 Code : 8480-6 BMI: 23.6 Code : 49881-6 Heart Rate 1 : 90 bpm Height: 4'10" SpO2: 97% Weight: 113 lbs 07/25/2016 Blood Pressure 1: 120/68 Code : 8480-6 BMI: 23.4 Code : 18542-3 Heart Rate 1 : 82 bpm Height: 4'11" SpO2: 96% Weight: 115 lbs 06/13/2016 Blood Pressure 1: 118/78 Code : 8480-6 BMI: 23.8 Code : 12106-1 Heart Rate 1 : 98 bpm Height: [...] Code : 8480-6 BMI: 24.8 Code : 35568-4 Heart Rate 1 : 87 bpm Height: [...] Symptom Name Status Result Effective Date Notes dyspnea Quality acute 09/06/2017 None dyspnea Onset and Resolution sudden in onset 09/06/2017 None dyspnea Onset of Symptom _ days ago 09/06/2017 None dyspnea Pertinent Findings Denies chest discomfort 09/06/2017 None dyspnea Pertinent Findings cough 09/06/2017 None dyspnea Pertinent Findings tachycardia 09/06/2017 None dyspnea Pertinent Findings sputum production 09/06/2017 None dyspnea Pertinent Findings weakness 09/06/2017 None pain Quality chronic 07/05/2017 None pain Onset [...] Onset and Resolution ongoing 02/08/2015 hasnt seen credit underwriter in a while- atrial fib arrhythmia Pertinent [...] data Encounters Encounter Performer Location Codes Date ([id number]) 65834 EST. PATIENT, LEVEL IV Diagnosis: Cough[ICD10: R05] Diagnosis: Contact with and (suspected) exposure to other viral communicable diseases[ICD10: Z20.828] Diagnosis: Other general symptoms and signs[ICD10: R68.89] Diagnosis: Chronic pain syndrome[ICD10: G89.4] Keri Lemus MD, [facility] CPT-4: 16091 09/06/2017 ([id number]) 16438 EST. PATIENT, LEVEL IV Diagnosis: Chronic pain syndrome[ICD10: G89.4] Diagnosis: Generalized anxiety disorder[ICD10: F41.1] Diagnosis: Chronic atrial fibrillation[ICD10: I48.2] Keri Lemus MD, [facility] CPT-4: 85024 07/05/2017 [id number] EST. PATIENT, LEVEL III Diagnosis: Chronic pain syndrome[ICD10: G89.4] Diagnosis: Generalized anxiety disorder[ICD10: F41.1] Vernell Lemus MD, [facility] CPT-4: 24113 06/21/2017 ([id number]) 12473 EST. PATIENT, LEVEL IV Diagnosis: Chronic pain syndrome[ICD10: G89.4] Diagnosis: Low back pain[ICD10: M54.5] Diagnosis: Slow transit constipation[ICD10: K59.01] Diagnosis: Gastro-esophageal reflux disease without esophagitis[ICD10: K21.9] Keri Lemus MD, [facility] CPT-4: 96365 05/28/2017 ([id number] 06016 EST. PATIENT, LEVEL III Diagnosis: Pain in thoracic spine[ICD10: M54.6] Diagnosis: Chronic pain syndrome[ICD10: G89.4] Antonette Lemus MD, [facility] CPT-4: 04643 05/11/2017 ([id number]) Patient admitted to the hospital from clinic (NO CHARGE) Diagnosis: Low back pain[ICD10: M54.5] Diagnosis: Other chronic pain[ICD10: G89.29] Keri Lemus MD, [facility] CPT-4: 84019V 05/02/2017 ([id number]) 52192 EST. 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 PATIENT, LEVEL IV Diagnosis: Dysphagia, pharyngoesophageal phase[ICD10: R13.14] Diagnosis: Seborrheic dermatitis, unspecified[ICD10: L21.9] Diagnosis: Primary osteoarthritis, unspecified site[ICD10: M19.91] Diagnosis: Generalized anxiety disorder[ICD10: F41.1] Diagnosis: Abnormal weight loss[ICD10: R63.4] Antonette Lemus MD, [facility] CPT-4: 04243 02/26/2017 ([id number]) 10688 EST. PATIENT, LEVEL IV Diagnosis: Postnasal drip[ICD10: R09.82] Diagnosis: Tinea barbae and tinea capitis[ICD10: B35.0] Diagnosis: Generalized anxiety disorder[ICD10: F41.1] Antonette Lemus MD, [facility] CPT-4: 12676 02/12/2017 ([id number]) 58740 EST. PATIENT, LEVEL IV Diagnosis: Chronic atrial fibrillation[ICD10: I48.2] Diagnosis: Chronic idiopathic constipation[ICD10: K59.04] Diagnosis: Low back pain[ICD10: M54.5] Diagnosis: Generalized anxiety disorder[ICD10: F41.1] Keri Leums MD, [facility] CPT-4: 88878 11/23/2016 67378 EST. 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 PATIENT, LEVEL IV Diagnosis: Other malaise[ICD10: R53.81] Diagnosis: Slow transit constipation[ICD10: K59.01] Diagnosis: Shortness of breath[ICD10: R06.02] Diagnosis: Other fatigue[ICD10: R53.83] Vernell Lemus MD, [facility] CPT-4 : 13862 10/05/2016 95790 EST. PATIENT, LEVEL IV Diagnosis: Dysphagia, pharyngoesophageal phase[ICD10: R13.14] Diagnosis: Generalized anxiety disorder[ICD10: F41.1] Vernell Lemus MD, [facility] CPT-4: 10006 09/14/2016 ([id number]) 69232 EST. PATIENT, LEVEL III Diagnosis: Pain in left shoulder[ICD10: M25.512] Diagnosis: Rash and other nonspecific skin eruption[ICD10: R21] Antonette Lemus MD, [facility] CPT-4: 60329 07/25/2016 ([id number]) 32805 EST. PATIENT, LEVEL IV Diagnosis: Dysphagia, pharyngoesophageal phase[ICD10: R13.14] Diagnosis: Chronic idiopathic constipation[ICD10: K59.04] Diagnosis: Gastro-esophageal reflux disease without esophagitis[ICD10: K21.9] Antonette Lemus MD, [facility] CPT-4: 10695 06/13/2016 ([id number]) 71956 EST. PATIENT, LEVEL IV Diagnosis: Pain in right hip[ICD10: M25.551] Diagnosis: Low back pain[ICD10: M54.5] Diagnosis: Hypothyroidism, unspecified[ICD10: E03.9] Keri Lemus MD, [facility] CPT-4: 36057 04/26/2016 62137 EST. PATIENT, LEVEL III Diagnosis: Pain in right hip[ICD10: M25.551] Vernell Lemus MD, [facility] CPT -4: 81630 04/17/2016 ([id number]) 36754 EST. PATIENT, LEVEL IV Diagnosis: Low back pain[ICD10: M54.5] Diagnosis: Pain in right hip[ICD10: M25.551] Diagnosis: Unspecified fall, sequela[ICD10: W19.XXXS] Diagnosis: Pain, unspecified[ICD10: R52] Keri Lemus MD, [facility] CPT- 4: 83870 02/03/2016 ([id number]) 98461 EST. PATIENT, LEVEL III Diagnosis: Dysphagia, pharyngoesophageal phase[ICD10: R13.14] Diagnosis: Hypothyroidism, unspecified[ICD10: E03.9] Diagnosis: Pain in left shoulder[ICD10: M25.512] Keri Lemus MD, [facility] CPT-4: 96322 01/19/2016 16045 EST. PATIENT, LEVEL IV Diagnosis: Pain in left shoulder[ICD10: M25.512] Diagnosis: Chronic atrial fibrillation[ICD10: I48.2] Vernell Lemus MD, [facility] CPT-4: 94873 11/04/2015 05380 EST. PATIENT, LEVEL IV Diagnosis: Pain in left shoulder[ICD10: M25.512] Diagnosis: Chronic atrial fibrillation[ICD10: I48.2] Diagnosis: Primary osteoarthritis, unspecified site[ICD10: M19.91] Vernell Lemus MD, [facility] CPT-4: 57946 10/20/2015 ([id number]) 95620 EST. PATIENT, LEVEL IV Diagnosis: Dysphagia, pharyngoesophageal phase[ICD10: R13.14] Diagnosis: Hypothyroidism, unspecified[ICD10: E03.9] Diagnosis: Primary osteoarthritis, unspecified site[ICD10: M19.91] Diagnosis: Chronic atrial fibrillation[ICD10: I48.2] Keri Lemus MD, [facility] CPT-4: 70050 07/26/2015 ([id number]) 53409 EST. PATIENT, LEVEL IV Diagnosis: Dysphagia[ICD9: 787.20] Diagnosis: DYSPHAGIA, OROPHARYNGEAL[ICD9: 787.22] Diagnosis: Left wrist pain[ICD9: 719.43] Keri Lemus MD, [facility] CPT- 4: 37914 02/24/2015 ([id number]) OFFICE VISIT, NEW - LEVEL 4 Diagnosis: Left wrist pain[ICD9: 719.43] Diagnosis: A-fib[ICD9: 427.31] Diagnosis: Hypothyroidism[ICD9: 244.9] Diagnosis: Osteoarthritis[ICD9: 715.90] Diagnosis: URINARY FREQUENCY[ICD9: 788.41] Keri Lemus MD, [facility] CPT- 4: 49917 02/08/2015 Plan of Care Planned Activity Notes Codes Status Date Visit Plan: Influenza exposure with current increasing symptoms of the flu - RX for tamiflu and mucinex rx - continue with oxygen as needed. Staff at the long term to call if her symptoms do not improve or if they acutely worsen. Chronic pain syndrome - symptoms stable, pt did not complain about uncontrolled symptoms. Per staff she continues to ask about getting her pain medication every 4 hours on schedule. She continues to use her duragesic patches at 150mcg changed every 72 hours. 09/06/2017 Patient Education: Patient Medication Summary Completed 09/06/2017 Referral: Ketan Healy [facility] nurse informed. Referral info faxed. Completed 08/16/2017 Appointment: Keri Lemus WPtel: [address] [place], [place] [id number] (30 min) Complex 08/06/2017 Visit Plan: Chronic [...] to talk to the nurses at the long term about her pain and the pain medication [...] just wanted to go back to the long term and receive her pain medication. Anxiety - pt has prn xanax. Atrial Fibrillation - pt on chronic anticoagulation and is currently rate controlled. The pt is to have labs done as appropriate to monitor medication levels and is to report if they start to feel as if their heart rate is becoming uncontrolled. 07/05/2017 Appointment: Keri Lemus [facility]el[phone] (30 min) Complex 07/05/2017 Patient Education: Patient Medication Summary Completed 07/05/2017 Care Plan: Referral Order SNOMED-CT : [id number] Pending 07/05/2017 Visit Plan: Chronic Pain Syndrome - pt has chronic pain - pt and family denies that she is asking for pain medication early or misusing pain medication, they are upset that the nursing staff is reporting this - Discussed with Dr. Lemus - the pt and family are to consider a referral to a silo painter. Chronic Depression and anxiety - the pt has symptoms of chronic anxiety and depression that have been fairly well controlled since the last office visit. The pt has expected periods of exacerbation with abatement of the symptoms with change in situational exposure. No change in current medications. 06/21/2017 App[facility]ment: [phone] ([facility] 06/21/2017 Patient Education: Patient Medication Summary Completed 06/21/2017 Appointment: Keri Lemus [facility]el: [phone] [place] (15 min) Moderate 05/29/2017 Visit Plan: [...] refilled miralax. 05/28/2017 Appointment: Keri Lemus WPtel: [facility] [place] (30 min) Complex 05/28/2017 Patient Education: Patient Medication Summary Completed 05/28/2017 Visit Plan: Chronic pain-sacral fx-hospital follow up-pain improving-no changes Thoracic back chnc-xgz-mafr xray thoracic spine to evaluate for compression fracture-instructed [place] to give patient a pain pill for pain if due and to call the office if not due yet 05/11/2017 Appointment: Antonette Baumann WPtel: [phone] [place] (30 min) Complex 05/11/2017 Patient Education: Patient Medication Summary Completed 05/11/2017 Visit Plan: Admit for pain control and imaging - discussed with patient - this is an observation admission - cost will be directed to her from medicare since they do not pay for medications during an observation admission. 05/02/2017 Appointment: Keri Lemus WPtel: [facility] [place] (15 min) Moderate 05/02/2017 Patient Education: [...] current medications. 03/27/2017 Appointment: Keri Lemus WPtel: [facility]1 [facility] (15 min) Moderate 03/27/2017 Patient Education: Patient Medication Summary Completed 03/27/2017 Visit Plan: Dysphagia-recommend patient f/u with Dr Shukla Seborrheic dermatitis-mix ketoconazole and triamcinolone cream and apply BID OA- hands, shoulders, hips-RX for voltaren gel Weight loss-increase ensure to BID-f/ u weight in 1 month 02/26/2017 Appointment: Antonette Baumann WPtel: [facility]1 [phone] (30 min) Complex 02/26/2017 Patient Education: [...] cream -patient does not want the shampoo Tumeaug-hzxrvyn-jqzptl well controlled-no change in medications 02/12/2017 Appointment: Antonette Baumann WPtel: [phone] [phone] (30 min) Complex 02/12/2017 Patient Education: Patient Medication Summary Completed 02/12/2017 Appointment: Vernell Holden WPtel: [phone] [facility] [place] (30 min) Complex 02/08/2017 Appointment: Mariah Keri WPtel: [facility]5 [facility] (15 min) Moderate 12/14/2016 Visit Plan: Chronic constipation - start amitiza 24mg daily Chronic pain syndrome - continue with chronic pain medication - start physical therapy for back pain. Generalized Anxiety - continue with chronic medications. 11/23/2016 Appointment: Keri Lemus WPtel: [facility]5 [facility] (30 min) Complex 11/23/2016 Patient Education: Patient Medication Summary Completed 11/23/2016 Visit Plan: Decreased appetite, increased depression - will start remeron, pt and long term staff to monitor symptoms - notify clinic [...] not improve. 11/06/2016 Appointment: Vernell Holden WPtel: [facility]3 [facility] (30 min) Complex 11/06/2016 Patient Education: Patient [...] or concerns. 10/05/2016 Appointment: Vernell Holden WPtel: [facility]2 [facility] (15 min) Moderate 10/05/2016 Patient Education: [...] not improving. 09/14/2016 Appointment: Vernell Holden WPtel: [phone] [facility] (30 min) Complex 09/14/2016 Patient Education: Patient Medication Summary Completed 09/14/2016 Appointment: Vernell Holden WPtel: [phone] [facility] [place] [address] - Annual Wellness Visit 08/03/2016 Visit Plan: Left shoulder pain-history of fracture- recommend PT-patient will consider Rash--hold voltaren gel-use nystatin/ triamcinolone cream as directed-follow up in 2 weeks if rash not resolved 07/25/2016 Appointment: Antonette Baumann WPtel: [phone] [phone] (30 min) Complex 07/25/2016 Patient Education: [...] Completed 06/13/2016 Appointment: Antonette Baumann WPtel: [phone] [phone] (30 min) Complex 06/06/2016 Visit Plan: [...] of over-medication. 04/26/2016 Appointment: Keri Lemus WPtel: [facility]6 [facility] (15 min) Moderate 04/26/2016 Patient Education: Patient Medication Summary Completed 04/26/2016 Appointment: Keri Lemus WPtel: [facility] (15 min) Moderate 04/25/2016 Appointment: Antonette Baumann WPtel: [facility]9 [phone] [place] (30 min) Complex 04/18/2016 Visit [...] previous imaging. 02/03/2016 Appointment: Keri Lemus WPtel: [facility] (15 min) Moderate 02/03/2016 Patient Education: Patient Medication Summary Completed 02/03/2016 Care Plan: CT LUMBAR SPINE W/O DYE LOINC : 28183-2 Pending 02/03/2016 Care Plan: CT LOWER EXTREMITY W/O DYE LOINC : 80947-9 Pending 02/03/2016 Referral: Berto Nascimento WPtel:[phone] Called to Alexa at [facility] Completed 02/02/2016 Visit Plan: Dysphagia - monitor [...] with voltaren. 01/19/2016 Appointment: Keri Lemus WPtel: [facility]5 [facility] (15 min) Moderate 01/19/2016 Patient Education: Patient Medication Summary Completed 01/19/2016 Care Plan: Referral Order SNOMED-CT : [id number] Pending 01/19/2016 Appointment: Keri Lemus WPtel: [facility]5 [facility] (15 min) Moderate 01/13/2016 Appointment: Keri Lemus WPtel: [address] [place], [place] [id number] (15 min) Moderate 12/06/2015 Appointment: (15 min) [...] Summary Completed 11/04/2015 Appointment: Keri Lemus WPtel: [address] [place], [place] [phone] [place] (15 min) Moderate 10/26/2015 Care Plan: X-RAY EXAM OF SHOULDER LOINC : 51088-4 Ordered 10/21/2015 Visit Plan: Left shoulder/Chronic Pain [...] (30 min) Complex 10/13/2015 Referral: Berto Nascimento WPtel:[phone] Referral Completed 08/11/2015 Visit Plan: Esophageal dysmotility [...] 07/26/2015 Care Plan: Referral Order SNOMED-CT : [id number] Ordered 07/26/2015 Care Plan: ASSAY OF DIGOXIN Ordered 07/26/2015 Appointment: Keri Lemus WPtel: [facility] (15 min) Moderate 04/21/2015 Appointment: (30 min) [...] times daily. 02/24/2015 Appointment: Keri Lemus WPtel: [facility] (15 min) Moderate 02/24/2015 Patient Education: Patient [...] if indicated 02/08/2015 Appointment: [facility] Baumann [facility]el[phone] [place] ([place]) New Patient 02/08/2015 Patient Education: Patient Medication Summary Completed 02/08/2015 Referral: Ketan Healy Referral Appointment Requested Referral: Berto Nascimento WPtel:[phone] Referral Completed Instructions Comment . Left shoulder [...] follow up-pain improving- no changes Thoracic back vxcs-vax-nkvo xray thoracic spine to evaluate for compression [...] or with any questions or concerns. . Influenza exposure with current increasing symptoms of the flu - RX for tamiflu and mucinex rx - continue with oxygen as needed. Staff at the long term to call if her symptoms do not improve or if they acutely worsen. Chronic pain syndrome - symptoms stable, pt did not complain about uncontrolled symptoms. Per staff she continues to ask about getting her pain medication every 4 hours on schedule. She continues to use her duragesic patches at 150mcg changed every 72 hours. . Decreased appetite, increased depression - will start remeron, pt and long term staff to monitor symptoms - notify clinic [...] cream -patient does not want the shampoo Qtzbitj-glliipb-mmdrno well controlled-no change in medications . Chronic [...] to talk to the nurses at the long term about her pain and the pain medication [...] just wanted to go back to the long term and receive her pain medication. Anxiety - [...] are to consider a referral to a silo painter. Chronic Depression and anxiety - the pt [...]
[2017-11-16 10:03] LABS: BASOPHILS % (AUTO) 0 % (0-10); EOSINOPHILS % (AUTO) 0 % (0-10); HEMATOCRIT 39 % (35-52); HEMOGLOBIN 12.8 G/DL (11.5-16.0); LYMPHOCYTES # (AUTO) 1.2 X 10^3 (1.0-4.0); LYMPHOCYTES % (AUTO) 14 % (12-44); MEAN CORPUSCULAR HEMOGLOBIN 31 PG (25-34); MEAN CORPUSCULAR HGB CONC 33 G/DL (32-36); MEAN CORPUSCULAR VOLUME 94 FL (80-99); MONOCYTES # (AUTO) 0.4 X 10^3 (0.0-1.0); MONOCYTES % (AUTO) 5 % (0-12); NEUTROPHILS # (AUTO) 7.5 X 10^3 (1.8-7.8); NEUTROPHILS % (AUTO) 81 % (42-75); PLATELET COUNT 228 10^3/uL (130-400); RED BLOOD COUNT 4.13 10^6/uL (4.35-5.85); RED CELL DISTRIBUTION WIDTH 14.5 % (10.0-14.5); WHITE BLOOD COUNT 9.2 10^3/uL (4.3-11.0)
[2017-11-16 10:20] LABS: ALANINE AMINOTRANSFERASE 11 U/L (0-55); ALBUMIN 3.8 GM/DL (3.2-4.5); ALKALINE PHOSPHATASE 55 U/L (40-136); BILIRUBIN,TOTAL 0.6 MG/DL (0.1-1.0); BUN/CREATININE RATIO 20; CALCIUM 9.4 MG/DL (8.5-10.1); CARBON DIOXIDE 29 MMOL/L (21-32); CHLORIDE 98 MMOL/L (98-107); GFR ESTIMATED > 60; GLUCOSE 110 MG/DL (70-105); POTASSIUM 4.2 MMOL/L (3.6-5.0); SODIUM 137 MMOL/L (135-145); TOTAL PROTEIN 7.5 GM/DL (6.4-8.2)
--- NOTE | 2017-11-16 10:31 | Diagnostic Imaging Report ---
Indication: Increasing shortness of air. Time of exam: 10:18 AM Comparison is made with prior study from 05/16/2017. Findings: Heart size stable. Mild chronic interstitial changes are again noted. No parenchymal consolidation is seen. No effusion or pneumothorax is identified. Multilevel kyphoplasty changes in the thoracic and lumbar spine are noted. Impression: Stable chest since prior exam. No acute feature is detected. Dictated by: Dictated on workstation # [id number]
--- NOTE | 2017-11-16 10:51 | ED Respiratory ---
General Chief Complaint: Respiratory Problems Stated Complaint: SOB Nursing Triage Note: PT ROOM 6 PER W/C PT CO OF SOME SOA AT TX, PT STATES RN AT [place] STATES HAS ABNORMAL LUNG SOUNDS TODAY AND OCC LOWER O2 SAT Source: patient Exam Limitations: no limitations History of Present Illness Date Seen by Provider: Nov 16, 2017 Time Seen by Provider: 10:46 Initial Comments The patient is an 87-year-old white female resident of [facility]. She came here after being advised by Dr. Lemus's office to do so. Her complaint was increasing shortness of breath. She states that she has been experiencing this for the past month or so. She denies fever chills or unusual sputum. She uses oxygen at the [facility]. 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 Timing/Duration: changing over time Prior Episodes/Possible Cause: occasional episodes Allergies and Home Medications Allergies Coded Allergies: penicillin G (Verified Allergy, Severe, THROAT SWELLED, COULDN'T BREATHE, 03/18/07) Sulfa (Sulfonamide Antibiotics) (Verified Allergy, Unknown, 04/16/07) hydrocodone bit (Verified Allergy, Unknown, 07/14/14) morphine (Verified Allergy, Unknown, 09/17/06) Home Medications Acetaminophen 325 Mg Tablet, 650 MG PO Q4H PRN for PAIN-MILD, (Reported) TAKES 2 (325 MG) TABLETS / MAY ALSO TAKE FOR ELEVATED TEMPERATURE Alprazolam 0.25 Mg Tablet, 0.25 MG PO TID PRN for ANXIETY, (Reported) Aspirin 81 Mg Tablet.dr, 81 MG PO DAILY, (Reported) Bisacodyl 10 Mg Supp.rect, 10 MG RC DAILY PRN for CONSTIPATION-4TH LINE, ( Reported) Calcium Carbonate 500 Mg Tablet, 1,000 MG PO DAILY, (Reported) Cholecalciferol (Vitamin D3) 1,000 Unit Tablet, 1,000 UNIT PO DAILY, (Reported) Citalopram Hydrobromide 20 Mg Tablet, 20 MG PO DAILY, (Reported) Clindamycin HCl 150 Mg Capsule, 600 MG PO UD, (Reported) TAKES 4 (150 MG) CAPSULES 1 HOUR PRIOR TO DENTAL APPOINTMENTS Digoxin 125 Mcg Tablet, 125 MCG PO DAILY, (Reported) Docusate Sodium 100 Mg Capsule, 100 MG PO DAILY, (Reported) Docusate Sodium 100 Mg Capsule, 100 MG PO DAILY PRN for CONSTIPATION-1ST LINE, ( Reported) Doxepin HCl 10 Mg Capsule, 10 MG PO 1800, (Reported) Esomeprazole Magnesium 20 Mg Capsule.dr, 20 MG PO DAILY, (Reported) Estradiol 42.5 Gm Cream.appl, 1 GM VG Sa, (Reported) Fentanyl 1 Each Patch.td72, 100 MCG TD Q72H, (Reported) USES WITH 25MCG PATCH Fentanyl 1 Each Patch.td72, 25 MCG TD Q72H, (Reported) USES WITH 100MCG PATCH Lactobacillus Rhamnosus GG 1 Each Capsule, 1 CAP PO BID, (Reported) Lactose-Reduced Food 237 Ml Liquid, 237 ML PO BID, (Reported) Lactose-Reduced Food 237 Ml Liquid, 237 ML PO BID, (Reported) Levothyroxine Sodium 50 Mcg Tablet, 50 MCG PO DAILY, (Reported) Loperamide HCl 2 Mg Tablet, 2-4 MG PO DAILY PRN for LOOSE STOOLS, (Reported) TAKES 1-2 OF A (2 MG) TABLET Loratadine 10 Mg Tablet, 10 MG PO DAILY, (Reported) Mag Hydrox/Al Hydrox/Simeth 30 Ml Oral.susp, 30 ML PO Q4H PRN for INDIGESTION, ( Reported) Magnesium Hydroxide 400 Mg/5 Ml Oral.susp, 30 ML PO DAILY PRN for CONSTIPATION- 7TH LINE, (Reported) Multivitamin 1 Each Tablet, 1 TAB PO DAILY, (Reported) Naloxegol Oxalate 25 Mg Tablet, 25 MG PO DAILY, (Reported) Ondansetron HCl 4 Mg Tablet, 4 MG PO Q6H PRN for NAUSEA/VOMITING-1ST LINE, ( Reported) Oxycodone HCl 5 Mg Tablet, 15 MG PO Q4H PRN for PAIN-MODERATE, (Reported) TAKES 3 (5MG) TABLETS Oxycodone HCl 5 Mg Tablet, 30 MG PO Q4H PRN for PAIN-SEVERE, (Reported) TAKES 6 (5MG) TABLETS Polyethylene Glycol 3350 255 Gm Powder, 17 GM PO Q48H PRN for CONSTIPATION-2ND LINE, (Reported) Rivaroxaban 15 Mg Tablet, 15 MG PO DAILY@1700 Prescribed by: LORI LEMUS on 05/21/17 8230 Patient Home Medication List Home Medication List Reviewed: Yes Constitutional: see HPI EENTM: no symptoms reported Respiratory: see HPI, dyspnea on exertion, short of breath Cardiovascular: no symptoms reported Gastrointestinal: no symptoms reported Genitourinary: no symptoms reported Musculoskeletal: no symptoms reported Skin: no symptoms reported Psychiatric/Neurological: No Symptoms Reported Hematologic/Lymphatic: No Symptoms Reported Immunological/Allergic: no symptoms reported Past [place]-Txpnwz-Ezoust Hx Patient Social History Alcohol Use: Denies Use Recreational Drug Use: No Smoking Status: Never a Smoker 2nd Hand Smoke Exposure: No Recent Foreign Travel: No Contact w/Someone Who Travel: No Recent Infectious Disease Expo: No Recent Hopitalizations: No Physical Abuse: No Sexual Abuse: No Immunizations Up To Date Tetanus Booster (TDap): Unknown PED Vaccines UTD: No Date of Pneumonia Vaccine: May 22, 2011 Date of Influenza Vaccine: May 20, 2015 Seasonal Allergies Seasonal Allergies: No Surgeries History of Surgeries: Yes (REPAIR LEFT HIP WITH FARTUN, RIGHT 4TH TOE REMOVED) Surgeries: Orthopedic, Tonsillectomy Respiratory History of Respiratory Disorde: Yes Respiratory Disorders: Pneumonia Currently Using CPAP: No Currently Using BIPAP: No Cardiovascular History of Cardiac Disorders: Yes (A-FIB) Cardiac Disorders: Atrial Fibrillation, Deep Vein Thrombosis Neurological History of Neurological Disord: Yes Neurological Disorders: Dementia Reproductive System Hx Reproductive Disorders: No Sexually Transmitted Disease: No HIV/AIDS: No Female Reproductive Disorders: Denies LAB ANIMAL TECHNICIAN History: Hysterectomy Genitourinary History of Genitourinary Disor: Yes Genitourinary Disorders: UTI-Chronic Gastrointestinal History of Gastrointestinal Di: No (DYSPHAGIA ) Gastrointestinal Disorders: Gastroesophageal Reflux, Chronic Constipation Musculoskeletal History of Musculoskeletal Dis: Yes Musculoskeletal Disorders: Osteoporosis, Arthritis, Fractures Endocrine History of Endocrine Disorders: Yes HEENT History of HEENT Disorders: Yes HEENT Disorders: Cataract Loss of Vision: Denies Hearing Impairment: Hard of Hearing Cancer History of Cancer: No Psychosocial History of Psychiatric Problem: Yes Behavioral Health Disorders: Anxiety, Depression Suicide Risk Score: 0 Integumentary History of Skin or Integumenta: No Blood Transfusions History of Blood Disorders: Yes (hx of "blood clots") Adverse Reaction to a Blood Tr: No (Has had several blood transfusions) Family Medical History Significant Family History: Heart Disease, Cancer, Hypertension Family Medial History: Cardiovascular disease G8 BROTHER G8 BROTHER G8 BROTHER FH: cancer 19 FATHER Myocardial infarction G8 BROTHER Peritonitis 19 MOTHER Physical Exam Vital Signs Vital Signs - First Documented 11/16/17 09:11 Temp 99.2 Pulse 107 Resp 18 B/P (MAP) 152/92 (112) Pulse Ox 96 Capillary Refill : Less Than 3 Seconds General Appearance: WD/WN, no apparent distress Eyes: Bilateral Eye Normal Inspection HEENT: normal ENT inspection Neck: full range of motion Respiratory: other (the patient is very thin. She does not exhibit tachypnea. 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, no motor/sensory deficits, alert, normal mood/affect, oriented x 3 Skin: normal color, warm/dry, cyanosis, cool, diaphoresis, damp Progress/Results/Core Measures Suspected Sepsis Recent Fever Within 48 Hours: No Infection Criteria Present: None New/Unexplained Altered Menta: No Sepsis Screen: No Definite Risk Sepsis Diagnosis: SIRS Temperature:99.2 Pulse: 107 Respiratory Rate: 18 Laboratory Tests 11/16/17 09:55: White Blood Count 9.2 Blood Pressure 152 /92 Mean: 112 Laboratory Tests 11/16/17 09:55: Creatinine 0.70, Platelet Count 228, Total Bilirubin 0.6 Results/Orders Lab Results Laboratory Tests Test 11/16/17 09:55 Range/Units White Blood Count 9.2 4.3-11.0 10^3/uL Red Blood Count 4.13 L 4.35-5.85 10^6/uL Hemoglobin 12.8 11.5-16.0 G/DL Hematocrit 39 35-52 % Mean Corpuscular Volume 94 80-99 FL Mean Corpuscular Hemoglobin 31 25-34 PG Mean Corpuscular Hemoglobin Concent 33 32-36 G/DL Red Cell Distribution Width 14.5 10.0-14.5 % Platelet Count 228 130-400 10^3/uL Mean Platelet Volume 11.0 H 7.4-10.4 FL Neutrophils (%) (Auto) 81 H 42-75 % Lymphocytes (%) (Auto) 14 12-44 % Monocytes (%) (Auto) 5 0-12 % Eosinophils (%) (Auto) 0 0-10 % Basophils (%) (Auto) 0 0-10 % Neutrophils # (Auto) 7.5 1.8-7.8 X 10^3 Lymphocytes # (Auto) 1.2 1.0-4.0 X 10^3 Monocytes # (Auto) 0.4 0.0-1.0 X 10^3 Eosinophils # (Auto) 0.0 0.0-0.3 10^3/uL Basophils # (Auto) 0.0 0.0-0.1 10^3/uL Sodium Level 137 135-145 MMOL/L Potassium Level 4.2 3.6-5.0 MMOL/L Chloride Level 98 98-107 MMOL/L Carbon Dioxide Level 29 21-32 MMOL/L Anion Gap 10 5-14 MMOL/L Blood Urea Nitrogen 14 7-18 MG/DL Creatinine 0.70 0.60-1.30 MG/DL Estimat Glomerular Filtration Rate > 60 BUN/Creatinine Ratio 20 Glucose Level 110 H 70-105 MG/DL Calcium Level 9.4 8.5-10.1 MG/DL Total Bilirubin 0.6 0.1-1.0 MG/DL Aspartate Amino Transf (AST/SGOT) 19 5-34 U/L Alanine Aminotransferase (ALT/SGPT) 11 0-55 U/L Alkaline Phosphatase 55 40-136 U/L Troponin I < 0.30 <0.30 NG/ML B-Type Natriuretic Peptide 113.5 H <100.0 PG/ML Total Protein 7.5 6.4-8.2 GM/DL Albumin 3.8 3.2-4.5 GM/DL My Orders Orders - OSCAR SAUL MD Ekg Tracing (11/16/17 09:21) BNP (11/16/17 09:21) Cbc With Automated Diff (11/16/17 09:21) Comprehensive Metabolic Panel (11/16/17 09:21) Troponin I (11/16/17 09:21) Ua Culture If Indicated (11/16/17 09:21) Chest 1 View, Ap/Pa Only (11/16/17 09:21) Vital Signs/I&O Vital Sign - Last 12Hours 11/16/17 09:11 Temp 99.2 Pulse 107 Resp 18 B/P (MAP) 152/92 (112) Pulse Ox 96 Capillary Refill : Less Than 3 Seconds Blood Pressure Mean: 112 Departure Communication (Admissions) Progress Notes The chest x-ray exhibits the same bibasilar cloudiness that was present on previous x-ray. This may represent fibrosis of the elderly. Impression Impression: Primary Impression: restrictive lung disease Disposition: HOME, SELF-CARE Condition: Stable/Unchanged Departure-Patient Inst. Decision time for Depature: 10:50 Referrals: LORI LEMUS MD (PCP) Primary Care Physician Add. Discharge Instructions: All discharge instructions reviewed with patient and/or family. Voiced understanding. There is no evidence of pneumonia or infectious disease. The staff should adjust the oxygen to maintain an SaO2 between 90 and 94 percent. OSCAR SAUL MD Nov 16, 2017 10:51
[2017-11-16 11:00] VITALS: BP 152/92
[2017-11-16 11:07] LABS: BILIRUBIN,URINE NEGATIVE (NEGATIVE); CLARITY,URINE CLEAR; COLOR,URINE YELLOW; GLUCOSE, URINE (UA) NEGATIVE (NEGATIVE); KETONES,URINE NEGATIVE (NEGATIVE); LEUKOCYTE ESTERASE ,URINE 3+ (NEGATIVE); NITRITE,URINE NEGATIVE (NEGATIVE); PH,URINE 8 (5-9); PROTEIN,URINE 1+ (NEGATIVE); UROBILINOGEN,URINE NORMAL (NORMAL)
[2017-11-16 11:54] LABS: BACTERIA,URINE LARGE /HPF; RBC,URINE RARE /HPF; SQUAMOUS EPITHELIAL CELL,UR RARE /HPF
== END 2017-11-16 11:00 | disposition home or self-care (01) ==
LOC: EDUNIT# 09:11 → ER 09:12
DX: J98.4 Other disorders of lung (principal); I48.91 Unspecified atrial fibrillation; F03.90 Unspecified dementia, unspecified severity, without behavioral disturbance, psychotic disturbance, mood disturbance, and anxiety; M81.0 Age-related osteoporosis without current pathological fracture; K21.9 Gastro-esophageal reflux disease without esophagitis; F41.9 Anxiety disorder, unspecified; F32.9 Major depressive disorder, single episode, unspecified; Z86.718 Personal history of other venous thrombosis and embolism; Z82.49 Family history of ischemic heart disease and other diseases of the circulatory system; Z87.19 Personal history of other diseases of the digestive system; Z88.0 Allergy status to penicillin; Z88.2 Allergy status to sulfonamides; Z88.5 Allergy status to narcotic agent; Z79.82 Long term (current) use of aspirin; Z79.01 Long term (current) use of anticoagulants; Z90.89 Acquired absence of other organs; Z96.642 Presence of left artificial hip joint; Z87.01 Personal history of pneumonia (recurrent); Z90.710 Acquired absence of both cervix and uterus; Z87.440 Personal history of urinary (tract) infections
CPT/HCPCS: 36415; 71045; 80053; 81000; 83880; 84484; 85025; 87088; 93005